=== PATIENT | female | born 1960 | race Caucasian/White ===

== ENCOUNTER 2022-04-24 20:30 | Emergency (ER) | payer OTHER, SELFPAY ==
--- NOTE | ~2022-04-24 | CT_ITS ---
EXAMINATION: HEAD CT WITHOUT CONTRAST CERVICAL SPINE CT WITHOUT CONTRAST CLINICAL INFORMATION: fall od, PAIN. Headache. COMPARISON: None. TECHNIQUE: Contiguous axial imaging of the head was performed without the administration of IV contrast. Axial multidetector volumetric images were also performed through the cervical spine without intravenous contrast. Multiplanar reconstructed images in coronal and sagittal orientations were submitted. This CT examination was performed using dose optimization techniques as appropriate, variously including the following: *Automated exposure control *Adjustment of mA and/or kV according to patient size (this includes techniques or standardized protocols for targeted exams where dose is matched to indication/reason for exam; i.e. extremities or head) *Use of iterative reconstruction technique DOSE: 1481 mGy-cm FINDINGS: HEAD: There is no evidence of acute intracranial hemorrhage or territorial infarction. No abnormal mass-effect or midline shift. No extra-axial fluid collections. Benites to white matter differentiation is well preserved. The ventricles are normal in size and configuration. There is no abnormal attenuation within the brain parenchyma. Mild hyperostosis frontalis interna. The soft tissues and osseous structures are otherwise normal. The sinuses and mastoid air cells are clear. CERVICAL SPINE: Vertebral body heights are normal. No fractures of the vertebral bodies or posterior elements. Reversal of the normal cervical lordosis is likely positional or degenerative. No vertebral body or posterior element subluxation. Degenerative osteophytes and sclerosis are present at the atlantodental articulation, though normal alignment is maintained. Craniocervical junction is normal. Moderate degenerative disc disease is evident in the mid cervical spine at C5-C6 with loss of disc height, endplate osteophytes, and uncovertebral osteophytes. More mild degenerative degenerative disc disease is evident at other levels . Facet arthropathy is most notable on the left at C2-C3 and on the right at C7-T1. Mild to moderate central canal narrowing is evident at the level of C5-C6 due to posterior disc osteophyte complex. More mild central canal narrowing at C4-C5 and C6-C7. Uncovertebral osteophytes produce neural foraminal encroachment at C5-C6 bilaterally. No significant paravertebral soft tissue swelling. Atherosclerotic calcifications are present in the carotid arteries. Imaged portions of the lung apices are clear. CT/CT cervical spine wo IV con IMPRESSION: 1. No acute intracranial pathology. 2. No acute fracture or malalignment in the cervical spine. 3. Multilevel degenerative spondylosis in the cervical spine, most notably at C5-C6.
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
--- NOTE | ~2022-04-24 | XR_ITS ---
EXAMINATION: XR CHEST CLINICAL INFORMATION: Chest pain COMPARISON: None TECHNIQUE: Frontal view of the chest was obtained. FINDINGS: The lungs are clear. No airspace consolidation, pleural effusion, or pneumothorax. The cardiomediastinal silhouette is within normal limits. No acute osseous injury. XR/XR chest 1V IMPRESSION: No acute pulmonary disease.
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
[2022-04-24 20:32] VITALS: BP 122/72; BP 147/83; PULSE 81; PULSE 90; RESP 36; TEMP 36.8; O2SAT 95; O2SAT 96; BMI 42.0
--- NOTE | 2022-04-24 20:43 | ECG_ITS ---
Test Reason : OVERDOSE Blood Pressure : / mmHG Vent. Rate : 077 BPM Atrial Rate : 077 BPM P-R Int : 188 ms QRS Dur : 098 ms QT Int : 404 ms P-R-T Axes : 061 068 039 degrees QTc Int : 457 ms Normal sinus rhythm Normal ECG When compared with ECG of 15-JAN-2019 10:24, QRS axis has changed in precordial leads Referred By: Generic ED Physician Electronically Signed By:ROSY GRANADOS MD
[2022-04-24 20:51] LABS: Glucose, Whole Blood 162 mg/dL (60-115)
--- NOTE | 2022-04-24 21:10 | ED.OVERDOSE ---
HPI - Overdose General Chief Complaint: Overdose <ANUP Martinez - Last Filed: 04/25/22 01:24> Stated Complaint: OD <ANUP Martinez Last Filed: 04/25/22 01:24> Time Seen by Provider: 04/24/22 21:02 <ANUP Martinez Last Filed: 04/25/22 01:24> Source: patient <ANUP Martinez Last Filed: 04/25/22 01:24> Mode of arrival: ambulatory <ANUP Martinez Last Filed: 04/25/22 01:24> Limitations: no limitations <ANUP Martinez Last Filed: 04/25/22 01:24> History of Present Illness HPI Narrative: This is a 61-year-old female brought into the emergency department via EMS for suspected heroin overdose. Patient tells me that she use 1 bag of heroin, she tells me she smoked it. She tells me she forgets what happened after that. Currently reporting severe chest pain worse with inspiration and severe shortness of breath. Patient on 2-3 L via nasal cannula and saturating 96%. According to EMS a bystander to call 911 for an unresponsive female was thought to have a heroin overdose, bystander reported patient was unresponsive with no pulse therefore was instructed to initiate CPR CPR was started, police arrived on scene gave 8 mg of Narcan intranasally, patient did not respond CPR continued, according to police patient later woke up after CPR Narcan, complaining of severe chest pain, shortness of breath. Patient was hypoxic high 80s low 90s. Patient tells me that she feels awful and is having a bad headache. Patient denies nausea, vomiting, abdominal pain, vision changes, dizziness. Denies SI and HI . <ANUP Martinez Last Filed: 04/25/22 01:24> Related Data Home Medications: Previous Rx's Medication Instructions Recorded ibuprofen 600 mg tablet 600 mg PO Q6H PRN fever or pain 04/25/22 #30 tabs <ANUP Martinez Last Filed: 04/25/22 01:24> Allergies/Adverse Reactions: Allergies Allergy/AdvReac Type Severity Reaction Status Date / Time No Known Allergies Allergy Unverified 02/23/20 19:10 [No Known Allergies*] <ANUP Martinez Last Filed: 04/25/22 01:24> Review of Systems Review of Systems: Constitutional : No Weight loss, No Fever, No Chills, No Fatigue, No Malaise ENT/Mouth : No sore throat, No Rhinorrhea Eyes: No Eye Pain, No Swelling, No Redness Cardiovascular : + Chest Pain, + SOB, No Dyspnea on Exertion, No Orthopnea, No Edema, No Palpitations Respiratory : No Cough, No Sputum, No Wheezing Gastrointestinal : No Nausea, No Vomiting, No Diarrhea, No Constipation, No abdominal Pain, No Hematochezia, No Melena Genitourinary : No Dysuria, No Urinary Frequency, No Hematuria, Musculoskeletal : No joint pain, No Myalgias, No Joint Swelling Skin : No Skin Lesions, No rash Neuro : No Weakness, No Numbness, No Dizziness, No Headache Psych : No Anxiety/Panic, No Depression All other systems reviewed and are negative <ANUP Martinez Last Filed: 04/25/22:24> Yes all other systems are reviewed and are negative <ANUP Martinez - Last Filed: 04/25/22 01:24> [facility] Past Medical History Attestation statement: The following information was validated with the patient. <ANUP Martinez - Last Filed: 04/25/22 01:24> Source: old records reviewed and nursing notes reviewed <ANUP Martinez - Last Filed: 04/25/22 01:24> Social History Social History: Social History Alcohol intake: current Alcohol intake frequency: a few times a week Smoked in Last 30 Days: Yes Use of substances other than those prescribed or required for medical reasons: Yes Substance Use Type: Heroin Last Used Substance: Just Prior to Admission Advance Directives: No Advance Directives Information Provided: Yes <ANUP Martinez Last Filed: 04/25/22 01:24> Physical Exam Vital Signs: Vital Signs: Last Vital Signs Temp 97.1 F 04/25/22 01:57 Pulse 65 04/25/22 03:43 Resp 18 04/25/22 03:43 BP 135/79 04/25/22 03:43 Pulse Ox 98 04/25/22 03:43 O2 Del Method 04/25/22 03:43 Oxygen Flow Rate 2 04/24/22 20:32 BMI result Body Mass Index 42.0 vss <ANUP Martinez - Last Filed: 04/25/22 01:24> Vital Signs: Last Vital Signs Temp 97.1 F 04/25/22 01:57 Pulse 65 04/25/22 03:43 Resp 18 04/25/22 03:43 BP 135/79 04/25/22 03:43 Pulse Ox 98 04/25/22 03:43 O2 Del Method 04/25/22 03:43 Oxygen Flow Rate 2 04/24/22 20:32 BMI result Body Mass Index 42.0 <Dawood Le MD - Last Filed: 04/25/22 04:34> Appearance: Alert.? Oriented X3.? No acute distress.? Head: Normocephalic, atraumatic, no step-offs or deformities Eyes: Pupils equal, round and reactive to light.? ENT: Pharynx normal.? Neck: Normal inspection.? Neck supple.? CVS: Rapid rate normal rhythm..? Pulses normal.? Pain with palpation of anterior chest wall particularly above of the sternum Respiratory: No respiratory distress.? Breath sounds diminhished bl.? Abdomen: Soft and nontender.? Skin: Skin warm and dry.? Normal skin color.? Normal skin turgor.? Extremities: No lower extremity edema.? No calf ttp. 5/5 strength to bilateral upper and lower extremities\ Neuro: Oriented X 3.? No motor deficit.? No sensory deficit. CN 2-12 intact <ANUP Martinez - Last Filed: 04/25/22 01:24> Course Reevaluation(s) Reevaluation #1: CBC with slight leukocytosis likely reactive. Chemistry with no electrolyte abnormalities requiring intervention. Troponin 12.2 will repeat at 0200 however ekg w/o evidence of ischemia. Chest xray no acute findings. <ANUP Martinez - Last Filed: 04/25/22 01:24> Time: 23:53 <ANUP Martinez - Last Filed: 04/25/22 01:24> Reevaluation #2: Sign-out will be given to pending scans, trop, reval, sude. <ANUP Martinez - Last Filed: 04/25/22 01:24> Time: 00:53 <ANUP Martinez - Last Filed: 04/25/22 01:24> Medications Administered Discontinued Medications Generic Name Dose Route Start Last Admin Trade Name Freq PRN Reason Stop Dose Admin Iohexol 100 ml 04/25/22 00:47 04/25/22 00:48 Iohexol 350 Mg/Ml 100 Ml Infus..Btl IV 04/25/22 00:48 100 ml ONCE ONE Administration Lidocaine 1 patch 04/25/22 01:22 04/25/22 01:33 Lidocaine 4 % Patch Adh..Patch TRANSDERMA 04/25/22 01:23 1 patch ONCE ONE Administration Protocol Morphine Sulfate 4 mg 04/25/22 01:22 04/25/22 01:33 Morphine Sulfate 4 Mg/Ml Cartridge IVPUSH 04/25/22 01:23 4 mg ONCE ONE Administration Protocol <ANUP Martinez - Last Filed: 04/25/22 01:24> Medications Administered Discontinued Medications Generic Name Dose Route Start Last Admin Trade Name Freq PRN Reason Stop Dose Admin Iohexol 100 ml 04/25/22 00:47 04/25/22 00:48 Iohexol 350 Mg/Ml 100 Ml Infus..Btl IV 04/25/22 00:48 100 ml ONCE ONE Administration Lidocaine 1 patch 04/25/22 01:22 04/25/22 01:33 Lidocaine 4 % Patch Adh..Patch TRANSDERMA 04/25/22 01:23 1 patch ONCE ONE Administration Protocol Morphine Sulfate 4 mg 04/25/22 01:22 04/25/22 01:33 Morphine Sulfate 4 Mg/Ml Cartridge IVPUSH 04/25/22 01:23 4 mg ONCE ONE Administration Protocol <Dawood Le MD - Last Filed: 04/25/22 04:34> MDM - Overdose MDM Narrative Medical decision making narrative: 2100 61-year-old female presents status post heroin overdose was given 8 mg of intranasal Narcan in the field, and also receive CPR. Patient arrives alert and oriented x4 and reports using 1 bag of heroin, tells me she smoked it. Complaining of severe chest pain, shortness of breath, headache. Physical examination patient is noted to be hypoxic 90% on room air, placed on nasal cannula and saturating 96% on 2 L. Regular rate fast rhythm likely sinus tachycardia. Breath sounds diminished bilaterally. Abdomen soft nontender nondistended. Neuro nonfocal. Cerebellar intact. To note, patient does have significant pain to palpation overlying the anterior chest wall right above the sternum. Will obtain chest x-ray to rule out pneumothorax, rib fracture status post CPR any traumatic injuries, no signs of flail chest. Will also obtain CT of the head, neck, chest, abdomen pelvis as patient is unsure if she fell. Patient complaining of pain throughout body. Will obtain imaging. Basic labs, BREWSTER, ethanol level. <ANUP Martinez - Last Filed: 04/25/22 01:24> 2100 61-year-old female presents status post heroin overdose was given 8 mg of intranasal Narcan in the field, and also receive CPR. Patient arrives alert and oriented x4 and reports using 1 bag of heroin, tells me she smoked it. Complaining of severe chest pain, shortness of breath, headache. Physical examination patient is noted to be hypoxic 90% on room air, placed on nasal cannula and saturating 96% on 2 L. Regular rate fast rhythm likely sinus tachycardia. Breath sounds diminished bilaterally. Abdomen soft nontender nondistended. Neuro nonfocal. Cerebellar intact. To note, patient does have significant pain to palpation overlying the anterior chest wall right above the sternum. Will obtain chest x-ray to rule out pneumothorax, rib fracture status post CPR any traumatic injuries, no signs of flail chest. Will also obtain CT of the head, neck, chest, abdomen pelvis as patient is unsure if she fell. Patient complaining of pain throughout body. Will obtain imaging. Basic labs, BREWSTER, ethanol level. Patient seen with riding coach will discharge patient home plan to see her as outpatient patient agreed for this <Dawood Le MD - Last Filed: 04/25/22 04:34> Medical Records Attestation: I reviewed the patient's medical records. <ANUP Martinez - Last Filed: 04/25/22 01:24> Lab Data Attestation: I reviewed the patient's lab results. <ANUP Martinez - Last Filed: 04/25/22 01:24> Result diagrams: : 04/24/22 23:04 04/24/22 23:04 <ANUP Martinez - Last Filed: 04/25/22 01:24> Labs: Lab Results 04/24/22 04/24/22 04/24/22 Range/Units 20:40 23:04 23:04 WBC 14.0 H (4.8-10.8) X10*3/uL RBC 4.60 (4.20-5.50) X10*6/uL Hgb 13.6 (12.0-16.0) g/dl Hct 40.2 (37.0-47.0) % MCV 87.4 (80.0-98.0) fL MCH 29.6 (27.0-33.0) pg MCHC 33.8 (31.0-35.0) g/dl RDW 13.2 (11.0-16.0) % Plt Count 261 (160-400) X10*3/uL MPV 8.6 L (9.4-12.3) fL Immature Gran % (Auto) 0.4 (0.0-0.4) % Neut % (Auto) 72.8 (45-73) % Lymph % (Auto) 11.8 L (20-40) % [facility] % (Auto) 6.0 (2-11) % Eos % (Auto) 8.6 H (0-4) % Baso % (Auto) 0.4 (0-2) % Lymph # (Auto) 1.7 (1.2-4.9) X10*3/uL [facility] # (Auto) 0.8 (0.1-1.2) X10*3/uL Eos # (Auto) 1.2 H (0.0-0.4) X10*3/uL Baso # (Auto) 0.1 (0.0-0.2) X10*3/uL Abs Immat Gran (auto) 0.06 H (0.00-0.03) X10*3/uL Absolute Neuts (auto) 10.2 H (2.0-8.3) x10*3/uL Absolute Nucleated RBC 0.000 (0.0-0.012) X10*3/uL Nucleated RBC % (auto) 0.0 (0.0-0.2) /100WBC Sodium 143 (135-145) mmol/L Potassium 3.9 (3.3-5.1) mmol/L Chloride 103 (96-108) mmol/L Carbon Dioxide 29 (22-29) mmol/L Anion Gap 15 (12-20) BUN 13 (9-16) mg/dL Creatinine 1.13 (0.5-1.4) mg/dL Estim Creat Clear Calc 65.4 Estimated GFR 49 POC Glucose 162 H (60-115) mg/dL Random Glucose 90 (60-115) mg/dL Calcium 9.7 (8.4-10.2) mg/dL Magnesium 1.6 (1.6-2.6) mg/dL Total Bilirubin 0.4 (0.0-1.0) mg/dL AST 47 H (5-31) U/L ALT 47 H (0-31) U/L Alkaline Phosphatase 54 (39-117) U/L Troponin I High Sens (<3.5-17.0) ng/L Total Protein 7.8 (6.5-8.0) g/dL Albumin 3.9 (3.5-5.0) g/dL Ethyl Alcohol mg/dL COVID-19 ([facility]) (Negative) COVID-19 Clin Com 04/24/22 04/24/22 04/24/22 Range/Units 23:04 23:04 23:04 WBC (4.8-10.8) X10*3/uL RBC (4.20-5.50) X10*6/uL Hgb (12.0-16.0) g/dl Hct (37.0-47.0) % MCV (80.0-98.0) fL MCH (27.0-33.0) pg MCHC (31.0-35.0) g/dl RDW (11.0-16.0) % Plt Count (160-400) X10*3/uL MPV (9.4-12.3) fL Immature Gran % (Auto) (0.0-0.4) % Neut % (Auto) (45-73) % Lymph % (Auto) (20-40) % [facility] % (Auto) (2-11) % Eos % (Auto) (0-4) % Baso % (Auto) (0-2) % Lymph # (Auto) (1.2-4.9) X10*3/uL [facility] # (Auto) (0.1-1.2) X10*3/uL Eos # (Auto) (0.0-0.4) X10*3/uL Baso # (Auto) (0.0-0.2) X10*3/uL Abs Immat Gran (auto) (0.00-0.03) X10*3/uL Absolute Neuts (auto) (2.0-8.3) x10*3/uL Absolute Nucleated RBC (0.0-0.012) X10*3/uL Nucleated RBC % (auto) (0.0-0.2) /100WBC Sodium (135-145) mmol/L Potassium (3.3-5.1) mmol/L Chloride (96-108) mmol/L Carbon Dioxide (22-29) mmol/L Anion Gap (12-20) BUN (9-16) mg/dL Creatinine (0.5-1.4) mg/dL Estim Creat Clear Calc Estimated GFR POC Glucose (60-115) mg/dL Random Glucose (60-115) mg/dL Calcium (8.4-10.2) mg/dL Magnesium (1.6-2.6) mg/dL Total Bilirubin (0.0-1.0) mg/dL AST (5-31) U/L ALT (0-31) U/L Alkaline Phosphatase (39-117) U/L Troponin I High Sens 12.2 (<3.5-17.0) ng/L Total Protein (6.5-8.0) g/dL Albumin (3.5-5.0) g/dL Ethyl Alcohol < 10 mg/dL COVID-19 ([facility]) Negative (Negative) COVID-19 Clin Com See Note 04/25/22 Range/Units 01:01 WBC (4.8-10.8) X10*3/uL RBC (4.20-5.50) X10*6/uL Hgb (12.0-16.0) g/dl Hct (37.0-47.0) % MCV (80.0-98.0) fL MCH (27.0-33.0) pg MCHC (31.0-35.0) g/dl RDW (11.0-16.0) % Plt Count (160-400) X10*3/uL MPV (9.4-12.3) fL Immature Gran % (Auto) (0.0-0.4) % Neut % (Auto) (45-73) % Lymph % (Auto) (20-40) % [facility] % (Auto) (2-11) % Eos % (Auto) (0-4) % Baso % (Auto) (0-2) % Lymph # (Auto) (1.2-4.9) X10*3/uL [facility] # (Auto) (0.1-1.2) X10*3/uL Eos # (Auto) (0.0-0.4) X10*3/uL Baso # (Auto) (0.0-0.2) X10*3/uL Abs Immat Gran (auto) (0.00-0.03) X10*3/uL Absolute Neuts (auto) (2.0-8.3) x10*3/uL Absolute Nucleated RBC (0.0-0.012) X10*3/uL Nucleated RBC % (auto) (0.0-0.2) /100WBC Sodium (135-145) mmol/L Potassium (3.3-5.1) mmol/L Chloride (96-108) mmol/L Carbon Dioxide (22-29) mmol/L Anion Gap (12-20) BUN (9-16) mg/dL Creatinine (0.5-1.4) mg/dL Estim Creat Clear Calc Estimated GFR POC Glucose (60-115) mg/dL Random Glucose (60-115) mg/dL Calcium (8.4-10.2) mg/dL Magnesium (1.6-2.6) mg/dL Total Bilirubin (0.0-1.0) mg/dL AST (5-31) U/L ALT (0-31) U/L Alkaline Phosphatase (39-117) U/L Troponin I High Sens 11.2 (<3.5-17.0) ng/L Total Protein (6.5-8.0) g/dL Albumin (3.5-5.0) g/dL Ethyl Alcohol mg/dL COVID-19 ([facility]) (Negative) COVID-19 Clin Com <ANUP Martinez - Last Filed: 04/25/22 01:24> Lab Results 04/24/22 04/24/22 04/24/22 Range/Units 20:40 23:04 23:04 WBC 14.0 H (4.8-10.8) X10*3/uL RBC 4.60 (4.20-5.50) X10*6/uL Hgb 13.6 (12.0-16.0) g/dl Hct 40.2 (37.0-47.0) % MCV 87.4 (80.0-98.0) fL MCH 29.6 (27.0-33.0) pg MCHC 33.8 (31.0-35.0) g/dl RDW 13.2 (11.0-16.0) % Plt Count 261 (160-400) X10*3/uL MPV 8.6 L (9.4-12.3) fL Immature Gran % (Auto) 0.4 (0.0-0.4) % Neut % (Auto) 72.8 (45-73) % Lymph % (Auto) 11.8 L (20-40) % [facility] % (Auto) 6.0 (2-11) % Eos % (Auto) 8.6 H (0-4) % Baso % (Auto) 0.4 (0-2) % Lymph # (Auto) 1.7 (1.2-4.9) X10*3/uL [facility] # (Auto) 0.8 (0.1-1.2) X10*3/uL Eos # (Auto) 1.2 H (0.0-0.4) X10*3/uL Baso # (Auto) 0.1 (0.0-0.2) X10*3/uL Abs Immat Gran (auto) 0.06 H (0.00-0.03) X10*3/uL Absolute Neuts (auto) 10.2 H (2.0-8.3) x10*3/uL Absolute Nucleated RBC 0.000 (0.0-0.012) X10*3/uL Nucleated RBC % (auto) 0.0 (0.0-0.2) /100WBC Sodium 143 (135-145) mmol/L Potassium 3.9 (3.3-5.1) mmol/L Chloride 103 (96-108) mmol/L Carbon Dioxide 29 (22-29) mmol/L Anion Gap 15 (12-20) BUN 13 (9-16) mg/dL Creatinine 1.13 (0.5-1.4) mg/dL Estim Creat Clear Calc 65.4 Estimated GFR 49 POC Glucose 162 H (60-115) mg/dL Random Glucose 90 (60-115) mg/dL Calcium 9.7 (8.4-10.2) mg/dL Magnesium 1.6 (1.6-2.6) mg/dL Total Bilirubin 0.4 (0.0-1.0) mg/dL AST 47 H (5-31) U/L ALT 47 H (0-31) U/L Alkaline Phosphatase 54 (39-117) U/L Troponin I High Sens (<3.5-17.0) ng/L Total Protein 7.8 (6.5-8.0) g/dL Albumin 3.9 (3.5-5.0) g/dL Ethyl Alcohol mg/dL COVID-19 ([facility]) (Negative) COVID-19 Clin Com 04/24/22 04/24/22 04/24/22 Range/Units 23:04 23:04 23:04 WBC (4.8-10.8) X10*3/uL RBC (4.20-5.50) X10*6/uL Hgb (12.0-16.0) g/dl Hct (37.0-47.0) % MCV (80.0-98.0) fL MCH (27.0-33.0) pg MCHC (31.0-35.0) g/dl RDW (11.0-16.0) % Plt Count (160-400) X10*3/uL MPV (9.4-12.3) fL Immature Gran % (Auto) (0.0-0.4) % Neut % (Auto) (45-73) % Lymph % (Auto) (20-40) % [facility] % (Auto) (2-11) % Eos % (Auto) (0-4) % Baso % (Auto) (0-2) % Lymph # (Auto) (1.2-4.9) X10*3/uL [facility] # (Auto) (0.1-1.2) X10*3/uL Eos # (Auto) (0.0-0.4) X10*3/uL Baso # (Auto) (0.0-0.2) X10*3/uL Abs Immat Gran (auto) (0.00-0.03) X10*3/uL Absolute Neuts (auto) (2.0-8.3) x10*3/uL Absolute Nucleated RBC (0.0-0.012) X10*3/uL Nucleated RBC % (auto) (0.0-0.2) /100WBC Sodium (135-145) mmol/L Potassium (3.3-5.1) mmol/L Chloride (96-108) mmol/L Carbon Dioxide (22-29) mmol/L Anion Gap (12-20) BUN (9-16) mg/dL Creatinine (0.5-1.4) mg/dL Estim Creat Clear Calc Estimated GFR POC Glucose (60-115) mg/dL Random Glucose (60-115) mg/dL Calcium (8.4-10.2) mg/dL Magnesium (1.6-2.6) mg/dL Total Bilirubin (0.0-1.0) mg/dL AST (5-31) U/L ALT (0-31) U/L Alkaline Phosphatase (39-117) U/L Troponin I High Sens 12.2 (<3.5-17.0) ng/L Total Protein (6.5-8.0) g/dL Albumin (3.5-5.0) g/dL Ethyl Alcohol < 10 mg/dL COVID-19 ([facility]) Negative (Negative) COVID-19 Clin Com See Note 04/25/22 Range/Units 01:01 WBC (4.8-10.8) X10*3/uL RBC (4.20-5.50) X10*6/uL Hgb (12.0-16.0) g/dl Hct (37.0-47.0) % MCV (80.0-98.0) fL MCH (27.0-33.0) pg MCHC (31.0-35.0) g/dl RDW (11.0-16.0) % Plt Count (160-400) X10*3/uL MPV (9.4-12.3) fL Immature Gran % (Auto) (0.0-0.4) % Neut % (Auto) (45-73) % Lymph % (Auto) (20-40) % [facility] % (Auto) (2-11) % Eos % (Auto) (0-4) % Baso % (Auto) (0-2) % Lymph # (Auto) (1.2-4.9) X10*3/uL [facility] # (Auto) (0.1-1.2) X10*3/uL Eos # (Auto) (0.0-0.4) X10*3/uL Baso # (Auto) (0.0-0.2) X10*3/uL Abs Immat Gran (auto) (0.00-0.03) X10*3/uL Absolute Neuts (auto) (2.0-8.3) x10*3/uL Absolute Nucleated RBC (0.0-0.012) X10*3/uL Nucleated RBC % (auto) (0.0-0.2) /100WBC Sodium (135-145) mmol/L Potassium (3.3-5.1) mmol/L Chloride (96-108) mmol/L Carbon Dioxide (22-29) mmol/L Anion Gap (12-20) BUN (9-16) mg/dL Creatinine (0.5-1.4) mg/dL Estim Creat Clear Calc Estimated GFR POC Glucose (60-115) mg/dL Random Glucose (60-115) mg/dL Calcium (8.4-10.2) mg/dL Magnesium (1.6-2.6) mg/dL Total Bilirubin (0.0-1.0) mg/dL AST (5-31) U/L ALT (0-31) U/L Alkaline Phosphatase (39-117) U/L Troponin I High Sens 11.2 (<3.5-17.0) ng/L Total Protein (6.5-8.0) g/dL Albumin (3.5-5.0) g/dL Ethyl Alcohol mg/dL COVID-19 ([facility]) (Negative) COVID-19 Clin Com <Dawood Le MD - Last Filed: 04/25/22 04:34> Critical Care Time Critical Care Time Critical Care Time: No <ANUP Martinez - Last Filed: 04/25/22 01:24> Discharge Plan Discharge Clinical Impression: Drug overdose, Sternal fracture, Left rib fracture <ANUP Martinez - Last Filed: 04/25/22 01:24> Patient Disposition: Home, Self-Care <ANUP Martinez - Last Filed: 04/25/22 01:24> Instructions: Rib Fracture (ED), Adult Overdose (ED) <ANUP Martinez - Last Filed: 04/25/22 01:24> Additional Instructions: Follow up detox as discussed with riding coach Pain medication as prescribed Report to ER if increased shortness of breath or any concern <ANUP Martinez - Last Filed: 04/25/22 01:24> Prescriptions: New ibuprofen 600 mg tablet 600 mg PO Q6H PRN (Reason: fever or pain) Qty: 30 0RF <ANUP Martinez Last Filed: 04/25/22 01:24>
--- OUTSIDE RECORDS SUMMARY | 2022-04-24 21:10 | XMS_ITS | Continuity of Care Document ---
:1960 Author Organization [facility] Address [address] [place] [address]- Care Team Providers Name Role Phone Samara Maya NP Primary Care Physician Encounter [facility] [place] Date(s): 11/13/21 - 11/20/21 [facility] [address] [place] [phone]- Attending Physician: Not on Staff, Attending MD Allergies, Adverse Reactions, Alerts No Known Allergies Immunizations Given and Recorded Vaccine Date Status Refusal Reason SARS-CoV-2 (COVID-19) mRNA-1273 vaccine 05/01/21 Recorded SARS-CoV-2 (COVID-19) mRNA-1273 vaccine 08/07/20 Recorded SARS-CoV-2 (COVID-19) mRNA-1273 vaccine 07/07/20 Recorded Influenza Virus Vaccine (oldterm) 03/15/19 Recorded influenza virus vaccine, inactivated 02/03/19 Recorded influenza virus vaccine, inactivated 06/23/17 Given influenza virus vaccine, inactivated 03/26/17 Recorded influenza virus vaccine, inactivated 03/26/15 Recorded pneumococcal 23-valent vaccine 08/25/18 Recorded pneumococcal 23-valent vaccine 06/23/17 Given tetanus-diphtheria toxoids (Td) 05/13/18 Recorded tetanus/diphtheria/pertussis, acel(Tdap) 01/05/18 Given Not Given Vaccine Date Status Refusal Reason influenza virus vaccine, inactivated 08/22/21 Not Given Patient Refuses Medications ARIPiprazole 2 mg oral tablet 2 mg, 1, tablet, By Mouth, Daily, # 30 tablet, Refills 0, Maintenance, 09/01/21 11:29:00 EDT, Partial fill upon patient request if the prescription is for a schedule II opioid drug. Start Date: 09/01/21 Status: Ordereddexamethasone/neomycin/polymyxin B ophthalmic 1 mg-3.5 mg-03598 u/gm ointment 1 application, Eyes, Both, 3 times a day, # 4 Gm, 0 Refills, Maintenance, 08/21/21 22:30:00 EDT, Ophth Ointment, Partial fill upon patient request if the prescription is for a schedule II opioid drug. Start Date: 08/21/21 Status: Orderedgabapentin 300 mg oral capsule See Instructions, Take one capsul in the morning and two capsules at bedtime, # 90 capsule, Refills 0, Tot. Refills 0, Maintenance, 12/19/20 9:27:00 EDT, Instructions Replace Required Details, Route toPharmacy Electronically, [facility]... Start Date: 12/19/20 Status: OrderedhydrOXYzine pamoate 25 mg oral capsule 1 capsule = 25 mg, By Mouth, Daily in AM Start Date: 12/15/20 Status: OrderedhydrOXYzine pamoate 25 mg oral capsule 2 capsule = 50 mg, By Mouth, Daily at bedtime, 0 Refills, Maintenance, 08/21/21 22:31:00 EDT, Partial fill upon patient request if the prescription is for a schedule II opioid drug. Start Date: 08/21/21 Status: Orderedibuprofen 800 mg oral tablet 800 mg, 1, tablet, By Mouth, 3 times a day, PRN, not to exceed 3200 mg/day with food or milk, # 90 tablet, Refills 1, Tot. Refills 1, Maintenance, Pain , Moderate, 11/13/21 15:32:00 EDT, Route to Pharmacy Electronically, [facility] #[id number],... Start Date: 11/13/21 Status: OrderedSpiriva Respimat 1.25 mcg/inh inhalation aerosol 2 puffs, Inhalation, Daily, Duplicate from 04/22/21 remaining refills sent, # 4 Gm, 5 Refills, 10/28/21 15:13:00 EDT, [facility] #[id number], 163, cm, 09/01/21 11:23:00 EDT, Height, 108.5, kg, 09/01/21 11:23:00 EDT, Dry Weight Start Date: 10/28/21 Status: OrderedWixela Inhub 250 mcg-50 mcg inhalation powder 1 puffs, Inhalation, 2 times a day, # 60 Unknown, 5 Refills, 10/28/21 15:13:00 EDT, [facility] #[id number], 30, 1 puffs Inhalation 2 times a day, 163, cm, 09/01/21 11:23:00 EDT, Height, 108.5, kg,09/01/21 11:23:00 EDT, Dry Weight Start Date: 10/28/21 Status: Ordered Problem List Condition Effective Dates Status Health Status Informant Bipolar disorder(Confirmed) Active Chronic depression(Confirmed) Active Other disorders of iron Active metabolism(Confirmed) Dyslipidemia(Confirmed) Active H/O cocaine abuse(Confirmed) Active History of heroin abuse(Confirmed) Active Elevated LFTs(Confirmed) Active Anxiety and depression(Confirmed) Active COPD, moderate(Confirmed) Active Morbid obesity with body mass index of Active 40.0-49.9(Confirmed) Pulmonary nodules(Confirmed) Active Lung nodule(Confirmed) Active MEENA (obstructive sleep Active apnea)(Confirmed) Osteoarthritis, knee(Confirmed) Active Polysubstance abuse(Confirmed) Active PTSD (post-traumatic stress Active disorder)(Confirmed) Restless leg syndrome(Confirmed) Active Severe obesity(Confirmed) Active Sleepwalking disorder(Confirmed) Active Vital Signs Most recent to oldest [Reference Range]: 1 Height 163 cm (11/13/21 3:23 PM) Weight 111.4 kg (11/13/21 3:23 PM) Oxygen Saturation [94-100 %] 96 % (11/13/21 3:23 PM) Pulse Rate [55-90 bpm] 74 bpm (11/13/21 3:23 PM) Body Mass Index [18.5-24.99] 41.93 *>HHI* (11/13/21 3:23 PM) Blood Pressure [90-138/55-84 mm Hg] 102/68 mm Hg (11/13/21 3:23 PM) Temperature [96.8-100.4 DegF] 97.9 DegF (11/13/21 3:23 PM) Mode of Delivery (Oxygen) Room air (11/13/21 3:23 PM) Blood pressure sites Arm, left (11/13/21 3:23 PM) Temperature Route Oral (11/13/21 3:23 PM) Weight Obtained Via Standing scale (11/13/21 3:23 PM) Social History Social History Type Response Smoking Status Never smoker entered on: 10/28/17 Sex
--- OUTSIDE RECORDS SUMMARY | 2022-04-24 21:10 | XMS_ITS | Continuity of Care Document ---
:1960 Author Organization [facility] Address [address] [place] [phone]- Care Team Providers Name Role Phone Francesco SAMANIEGO, Samara Eid Primary Care Physician Encounter [facility] Date(s): 07/10/21 - 08/09/21 [facility] [address] [place] [phone]- Allergies, Adverse Reactions, Alerts No Known Allergies [...] (Td) 05/13/18 Recorded tetanus/diphtheria/pertussis, acel(Tdap) 01/05/18 Given Medications diclofenac 1% topical gel 1 application, Topically, 4 times a day, PRN Pain , Moderate, not to exceed 16 grams/day/single joint of lower extremities, # 100 Gm, 0 Refills, Maintenance, 01/16/21 16:31:00 EDT, Gel, [facility] [place], [place] - [phone], Partial fill upon... Start Date: 01/16/21 Stop Date: 01/30/21 Status: Orderedduloxetine 60 mg oral enteric coated capsule 1 capsule = 60 mg, By Mouth, Daily at bedtime, # 30 capsule, 0 Refills, Maintenance, 12/19/20 9:26:00 EDT, Capsule, [place], [place] - [phone], Partial fill upon patient request if the prescription is for a schedule II opioid drug.... Start Date: 12/19/20 Status: Orderedgabapentin 300 mg oral capsule See Instructions, Take one capsul in the morning and two capsules at bedtime, # 90 capsule, Refills 0, Tot. Refills 0, Maintenance, 12/19/20 9:27:00 EDT, Instructions Replace Required Details, Route toPharmacy Electronically, [facility]... Start Date: 12/19/20 Status: OrderedhydrOXYzine pamoate 25 mg oral capsule Take 1 capsule by mouth three times a day as needed for sleep and anxiety Start Date: 12/15/20 Status: Orderednaltrexone 50 mg oral tablet Take 1 tablet by mouth once a day Start Date: 12/15/20 Status: OrderedrisperiDONE 1 mg oral tablet 1 mg, 1, tablet, By Mouth, Daily at bedtime, # 30 tablet, Refills 0, Tot. Refills 0, Maintenance, 12/19/20 9:27:00 EDT, Route to Pharmacy Electronically, [place], [place] - [phone],Partial fill upon patient request if the prescrip... Start Date: 12/19/20 Status: OrderedSpiriva Respimat 1.25 mcg/inh inhalation aerosol 2 puffs, Inhalation, Daily, Duplicate from 04/22/21 remaining refills sent, # 4 Gm, 2 Refills, 07/10/21 10:42:00 EST, [facility]-[id number], 163, cm, 01/31/21 8:38:00 EDT, Height, 105.6, kg, 12/15/20 3:15:00 EDT, Dry Weight Start Date: 07/10/21 Status: OrderedTrileptal 300 mg oral tablet 600 mg, 2, tablet, By Mouth, 2 times a day, # 120 tablet, Refills 0, Tot. Refills 0, Maintenance, 12/19/20 9:27:00 EDT, Route to Pharmacy Electronically, [facility] [place], [place] - [phone],Partial fill upon patient request if the prescrip... Start Date: 12/19/20 Status: OrderedWixela Inhub 250 mcg-50 mcg inhalation powder 1 puffs, Inhalation, 2 times a day, # 60 Unknown, 5 Refills, 07/10/21 10:42:00 EST, [facility]-[id number], 30, 1 puffs Inhalation 2 times a day, 163, cm, 01/31/21 8:38:00 EDT, Height, 105.6, kg, 12/15/20 3:15:00 EDT, Dry Weight Start Date: 07/10/21 Status: Ordered Problem List Condition Effective Dates Status Health Status Informant Bipolar disorder(Confirmed) Active Chronic depression(Confirmed) Active Other disorders of iron Active metabolism(Confirmed) Dyslipidemia(Confirmed) Active H/O cocaine abuse(Confirmed) Active History of heroin abuse(Confirmed) Active Elevated LFTs(Confirmed) Active Anxiety and depression(Confirmed) Active COPD, moderate(Confirmed) Active Morbid obesity with body mass index of Active 40.0-49.9(Confirmed) Lung nodule(Confirmed) Active MEENA (obstructive sleep Active apnea)(Confirmed) Osteoarthritis, knee(Confirmed) Active Polysubstance abuse(Confirmed) Active PTSD (post-traumatic stress Active disorder)(Confirmed) Restless leg syndrome(Confirmed) Active Severe obesity(Confirmed) Active Sleepwalking disorder(Confirmed) Active Social History Social History Type Response Smoking Status Never smoker entered on: 10/28/17 Sex
--- OUTSIDE RECORDS SUMMARY | 2022-04-24 21:10 | XMS_ITS | Continuity of Care Document ---
:1960 Author Organization [facility] Address [address] [place] [phone]- Care Team Providers Name Role Phone Francesco SAMANIEGO, Samara Eid Primary Care Physician [place] [facility] [place] 09/01/21 - 09/01/[address] [address]- Discharge Disposition: A-D/C Home Attending Physician: Elina Garcia MD Admitting Physician: Elina Garcia MD Referring Physician: Not on Staff, Referring MD Allergies, Adverse Reactions, Alerts No Known [...] 09/01/21 Status: Ordereddexamethasone/neomycin/polymyxin B ophthalmic 1 mg-3.5 mg-80424 u/gm ointment 1 application, Eyes, Both, 3 [...] Instructions Replace Required Details, Route toPharmacy Electronically, [facility] [place]... Start Date: 12/19/20 Status: OrderedhydrOXYzine pamoate 25 [...] II opioid drug. Start Date: 08/21/21 Status: OrderedSpiriva Respimat 1.25 mcg/inh inhalation aerosol 2 puffs, Inhalation, Daily, Duplicate from 04/22/21 remaining refills sent, # 4 Gm, 2 Refills, 07/10/21 10:42:00 [facility], [facility]-, 163, cm, 01/31/21 8:38:00 EDT, Height, 105.6, kg, 12/15/20 3:15:00 EDT, Dry Weight Start Date: 07/10/21 Status: OrderedWixela Inhub 250 mcg-50 mcg inhalation powder 1 puffs, Inhalation, 2 times a day, # 60 Unknown, 5 Refills, [facility] 1 puffs Inhalation 2 times a [...] Most recent to oldest [Reference Range]: 1 2 Height 163 cm 163 cm (09/01/21 11:23 AM) (09/01/21 11: AM) Weight 108.5 kg 108.5 kg (09/01/21 11:23 AM) (09/01/21 11: AM) Oxygen Saturation [94-100 %] 95 % (09/01/21: AM) Pulse Rate [55-90 bpm] 85 bpm (09/01/21:23 AM) Body Mass Index [18.5-24.99] 40.84 *>HHI* (09/01/21 11: AM) Blood Pressure [90-138/55-84 mm Hg] 124/83 mm Hg (09/01/21: AM) Respiratory Rate [16-30 br/min] 20 br/min (09/01/21 11:23 AM) Temperature [96.8-100.4 DegF] 97.8 DegF (09/01/21: AM) Blood pressure sites Arm, right (09/01/21 AM) Temperature Route Temporal (09/01/21 11: AM) Dry Weight 108.5 kg 108.5 kg (09/01/21 11:23 AM) (09/01/21 11:21 AM) Weight Obtained Via Patient/family stated (09/01/21 11:21 AM) Dry Weight Obtained Via Patient/family stated (09/01/21 11:21 AM) Social History Social History Type Response Smoking Status Never smoker entered on: 10/28/17 Sex
--- OUTSIDE RECORDS SUMMARY | 2022-04-24 21:10 | XMS_ITS | Continuity of Care Document ---
:1960 Author Organization [facility] Address [address] [place] [address]- Care Team Providers Name Role Phone Francesco SAMANIEGO, Samara Eid Primary Care Physician Encounter [facility] Date(s): 02/23/20 - 03/24/20 [facility] [address] [place] [phone] [place] Allergies, Adverse Reactions, Alerts Substance Reaction Severity Status NKA Active Immunizations Given and Recorded Vaccine Date Status Refusal Reason Influenza Virus Vaccine (oldterm) 03/15/19 Recorded tetanus/diphtheria/pertussis, acel(Tdap) 01/05/18 Given influenza virus vaccine, inactivated 06/23/17 Given pneumococcal 23-valent vaccine 06/23/17 Given Medications Advair Diskus 250 mcg-50 mcg inhalation powder 1, puffs, Inhalation, 2 times a day, # 1 each, Refills 3, Tot. Refills 3, Maintenance, 06/15/20 16:21:00 EST, Powder, Route to Pharmacy Electronically, NCPDP_[id number], [facility], 162, cm, 02/23/20 14:38:00 EDT, Height, Dry Weight Start Date: 06/15/20 Stop Date: 10/13/20 Status: OrderedAutoCPAP 8-20 cm H2O with heated humidification machine AutoCPAP 8-20 cm H2O with heated humidification machine, See Instructions, # 1 each, Refills 0, Tot.Refills 0, Maintenance, Obstructive sleep apnea, mild (G47.33), 11/22/18 10:29:36 EDT, Compound Start Date: 11/22/18 Status: OrderedAutoCPAP Supplies AutoCPAP Supplies, See Instructions, # 1 each, Refills 12, Tot. Refills 12, Maintenance, Obstructivesleep apnea, mild (G47.33), 11/22/18 10:29:33 EDT, Compound Start Date: 11/22/18 Status: Orderedduloxetine 30 mg oral enteric coated capsule TAKE 1 CAPSULE BY MOUTH EVERYDAY AT BEDTIME. Prescribed by psychiatrist MD Carrillo Start Date: 04/28/19 Status: Orderedgabapentin 300 mg oral capsule 1, capsule, By Mouth, 3 times a day, # 90 capsule, Refills 0, Tot. Refills 0, Maintenance, 07/04/19 14:11:00 EST, Route to Pharmacy Electronically, [id number], 162, cm, 04/28/19 10:54:00 EST, Height Start Date: 07/04/19 Status: OrderedhydrOXYzine pamoate 25 mg oral capsule 1 capsule = 25 mg, By Mouth, 4 times a day, PRN for anxiety, # 40 capsule, 0 Refills, Maintenance, 10/28/17 11:36:46 EDT, Capsule Start Date: 10/28/17 Status: OrderedIncruse Ellipta 62.5 mcg/inh inhalation powder See Instructions, # 30 Gm, Refills 5 Tot. Refills 5, INHALE 1 PUFF BY MOUTH EVERY 24 HOURS. DOSES SHOULD BE TAKEN AT LEAST 24 HOURS APART, [facility] #[id number] Start Date: 01/27/19 Status: Orderedmeloxicam 15 mg oral tablet See Instructions, TAKE 1 TABLET BY MOUTH DAILY. Dispense in bubble form, # 30 tablet, 5 Refills, Soft Stop, 02/28/20 11:54:00 EDT, [place], [place] - [phone], Dispense in bubble form, 162, cm, 02/23/20 14:38:00 EDT, Height, Dry Weight Start Date: 02/28/20 Status: OrderedOXcarbazepine 150 mg oral tablet TAKE 1 TABLET BY MOUTH EVERY MORNING DIRECTED IN ADDITION TO 300MG TABLET. Start Date: 04/28/19 Status: OrderedOXcarbazepine 300 mg oral tablet TAKE 1 TABLET BY MOUTH EVERY MORNING AND TAKE 3 TABLETS AT BEDTIME Start Date: 04/28/19 Status: Orderedtiotropium 1.25 mcg/inh inhalation aerosol 2 puffs, Inhalation, Daily, # 4 Gm, 6 Refills, Maintenance, 03/19/20 12:37:00 EDT, Aerosol, [facility] [place], [place] - [id number], 162, cm, 03/01/20 8:47:00 EDT, Height Start Date: 03/19/20 Status: OrderedTrileptal 300 mg oral tablet 300 mg, 1, tablet, By Mouth, 2 times a day, # 90 tablet, Refills 0, Tot. Refills 0, Maintenance, 06/24/17 12:32:51, Route to Pharmacy Electronically, [id number], [facility] [address] [facility] Start Date: 06/24/17 Stop Date: 08/08/17 Status: OrderedVentolin HFA 108 mcg/inh inhalation aerosol with adapter 2 puffs = 180 mcg, Inhalation, 4 times a day, PRN Wheezing/Shortness of Breath, # 18 Gm, 3 Refills, Maintenance, 06/24/17 12:31:47, Inhaler Start Date: 06/24/17 Status: Ordered Problem List Condition Effective Dates Status Health Status Informant Bipolar disorder(Confirmed) Active Chronic depression(Confirmed) Active Other disorders of iron Active metabolism(Confirmed) H/O cocaine abuse(Confirmed) Active History of heroin abuse(Confirmed) Active Anxiety and depression(Confirmed) Active COPD, moderate(Confirmed) Active Morbid obesity with body mass index of Active 40.0-49.9(Confirmed) MEENA (obstructive sleep Active apnea)(Confirmed) Osteoarthritis, knee(Confirmed) Active Polysubstance abuse(Confirmed) Active PTSD (post-traumatic stress Active disorder)(Confirmed) Restless leg syndrome(Confirmed) Active Sleepwalking disorder(Confirmed) Active Social History Social History Type Response Smoking Status Never smoker entered on: 10/28/17 Sex Female
--- OUTSIDE RECORDS SUMMARY | 2022-04-24 21:10 | XMS_ITS | Continuity of Care Document ---
:1960 Author Organization [facility] Adult Address [address] [place] [address]- Care Team Providers Name Role Phone Francesco SAMANIEGO, Samara Eid Primary Care Physician Encounter [facility] Date(s): 04/28/19 - 06/23/19 [facility] [address] [place] [id number]- [facility] Attending Physician: Not on Staff, Attending MD Allergies, Adverse Reactions, Alerts Substance Reaction Severity Status NKA Active Immunizations Given and Recorded Vaccine Date Status Refusal Reason Influenza Virus Vaccine (oldterm) 03/15/19 Recorded tetanus/diphtheria/pertussis, acel(Tdap) 01/05/18 Given influenza virus vaccine, inactivated 06/23/17 Given pneumococcal 23-valent vaccine 06/23/17 Given Medications Advair Diskus 250 mcg-50 mcg inhalation powder 1, puffs, Inhalation, 2 times a day, # 60 each, Refills 2, Tot. Refills 2, Maintenance, 06/09/19 10:04:00 EST, Powder, Route to Pharmacy Electronically, [id number], [facility]/pharmacy #[id number], 162, cm, 04/28/19 10:54:00 EST, Height,... Start Date: 06/09/19 Status: OrderedAutoCPAP 8-20 cm H2O with heated [...] capsule, Refills 0, Tot. Refills 0, Maintenance, 06/03/19 9:46:00 EST, Route to Pharmacy Electronically, [facility]/pharmacy #[id number], 162, cm, 04/28/19 10:54:00 EST, Height, 109, kg, 06/22/17 0:46:00 EST, Dry Weight Start Date: 06/03/19 Status: OrderedhydrOXYzine pamoate 25 mg oral capsule [...] BE TAKEN AT LEAST 24 HOURS APART, [facility] #[id number] Start Date: 01/27/19 Status: Orderedmeloxicam 15 mg oral tablet See Instructions, TAKE 1 TABLET BY MOUTH DAILY. Dispense in bubble form, # 30 tablet, 5 Refills, Soft Stop, 06/07/19 13:00:00 EST, [facility]/pharmacy #[id number], Dispense in bubble form, 162, cm, 04/28/19 10:54:00 EST, Height, 109, kg, 06/22/17 0:46:00 EST, Dry... Start Date: 06/07/19 Status: OrderedOXcarbazepine 150 mg oral tablet TAKE 1 TABLET BY MOUTH EVERY MORNING DIRECTED IN ADDITION TO 300MG TABLET. Start Date: 04/28/19 Status: OrderedOXcarbazepine 300 mg oral tablet TAKE 1 TABLET BY MOUTH EVERY MORNING AND TAKE 3 TABLETS AT BEDTIME Start Date: 04/28/19 Status: OrderedSpiriva HandiHaler 18 mcg inhalation capsule 1 capsule = 18 mcg, Inhalation, Daily, # 30 capsule, 5 Refills, Maintenance, 04/28/19 11:47:41 EST Start Date: 04/28/19 Stop Date: 10/25/19 Status: OrderedTrileptal 300 mg oral tablet 300 mg, 1, tablet, By Mouth, 2 times a day, # 90 tablet, Refills 0, Tot. Refills 0, Maintenance, 06/24/17 12:32:51, Route to Pharmacy Electronically, [id number], [facility] [address] [facility] Start Date: 06/24/17 Stop Date: [...]
--- OUTSIDE RECORDS SUMMARY | 2022-04-24 21:10 | XMS_ITS | Continuity of Care Document ---
:1960 Author Organization [facility] Address [address] [place] [address]- Care Team Providers Name Role Phone Francesco [employer], Samara Eid Primary Care Physician [place] [facility] [place](s): 11/08/19 - 11/15/19 [facility] [address] [place] [id number]- [facility] Attending Physician: Yumiko Herndon MD Allergies, Adverse Reactions, Alerts Substance Reaction Severity Status NKA Active Immunizations Given and Recorded Vaccine Date Status Refusal Reason Influenza Virus Vaccine (oldterm) 03/15/19 Recorded tetanus/diphtheria/pertussis, acel(Tdap) 01/05/18 Given influenza virus vaccine, inactivated 06/23/17 Given pneumococcal 23-valent vaccine 06/23/17 Given Medications Advair Diskus 250 mcg-50 mcg inhalation powder 1, puffs, Inhalation, 2 times a day, # 1 each, Refills 2, Tot. Refills 2, Maintenance, 09/05/19 10:52:00 EDT, Powder, Route to Pharmacy Electronically, NCPDP_[id number], [facility]-, 162, cm, 04/28/19 10:54:00 EST, Height, Dry... Start Date: 09/05/19 Stop Date: 12/04/19 Status: OrderedAutoCPAP 8-20 cm H2O with heated [...] 07/04/19 14:11:00 EST, Route to Pharmacy Electronically, [id number], 162, cm, 04/28/19 10:54:00 EST, Height Start [...] BE TAKEN AT LEAST 24 HOURS APART, [facility] #[id number] Start Date: 01/27/19 Status: OrderedMedrol 4 mg oral tablet 1 pack/packet, By Mouth, Once, as directed on package labeling, # 21 tablet, 0 Refills, Soft Stop, 11/08/19 16:28:00 EDT, Tablet, [facility], 162, cm, 11/08/19 15:32:00 EDT, Height Start Date: 11/08/19 Status: Orderedmeloxicam 15 mg oral tablet See Instructions, TAKE 1 TABLET BY MOUTH DAILY. Dispense in bubble form, # 30 tablet, 5 Refills, Soft Stop, 06/07/19 13:00:00 EST, [facility]/pharmacy #[id number], Dispense in bubble form, [...] 18 mcg, Inhalation, Daily, # 30 capsule, 3 Refills, Maintenance, 07/11/19 8:45:00 EST, [facility]-14339, 162, cm, 04/28/19 10:54:00 EST, Height Start Date: 07/11/19 Stop Date: 11/08/19 Status: OrderedTrileptal 300 mg oral tablet 300 mg, 1, tablet, By Mouth, 2 times a day, # 90 tablet, Refills 0, Tot. Refills 0, Maintenance, 06/24/17 12:32:51, Route to Pharmacy Electronically, [id number], [facility] [address] [facility] Start Date: 06/24/17 Stop Date: 08/08/17 Status: [...] Restless leg syndrome(Confirmed) Active Sleepwalking disorder(Confirmed) Active Vital Signs Most recent to oldest [Reference Range]: 1 Height 162 cm (11/08/19 3:32 PM) Weight 109.09 kg (11/08/19 3:32 PM) Body Mass Index [18.5-24.99] 41.57 *>HHI* (11/08/19 3:32 PM) Social History Social History Type Response Smoking Status Never smoker entered on: 10/28/17 Sex Female
--- OUTSIDE RECORDS SUMMARY | 2022-04-24 21:11 | XMS_ITS | Continuity of Care Document ---
:1960 Author Organization [facility] Adult Address [address] [place] [address]- Care Team Providers Name Role Phone Francesco SAMANIEGO, Samara Eid Primary Care Physician Encounter [facility] Date(s): 02/24/20 - 03/25/20 [facility] [address] [place] [id number]- [place] States Allergies, Adverse Reactions, Alerts Substance Reaction [...] 16:21:00 EST, Powder, Route to Pharmacy Electronically, NCPDP_[id number], [facility], 162, cm, 02/23/20 14:38:00 EDT, Height, Dry [...] 07/04/19 14:11:00 EST, Route to Pharmacy Electronically, [id number], 162, cm, 04/28/19 10:54:00 EST, Height Start [...] BE TAKEN AT LEAST 24 HOURS APART, [id number] Start Date: 01/27/19 Status: Orderedmeloxicam 15 mg oral tablet See Instructions, TAKE 1 TABLET BY MOUTH DAILY. Dispense in bubble form, # 30 tablet, 5 Refills, Soft Stop, 02/28/20 11:54:00 EDT, [place], [place] - [phone], Dispense in bubble form, 162, cm, 02/23/20 [...] 03/19/20 12:37:00 EDT, Aerosol, [facility] - [place], [place] - [id number], 162, cm, 03/01/20 8:47:00 EDT, Height Start Date: 03/19/20 Status: OrderedTrileptal 300 mg oral tablet 300 mg, 1, tablet, By Mouth, 2 times a day, # 90 tablet, Refills 0, Tot. Refills 0, Maintenance, 06/24/17 12:32:51, Route to Pharmacy Electronically, [id number], [facility] - [address] [facility] Start Date: 06/24/17 Stop Date: 08/08/17 Status: [...]
--- OUTSIDE RECORDS SUMMARY | 2022-04-24 21:11 | XMS_ITS | Continuity of Care Document ---
:1960 Author Organization [facility] Adult Address [address] [place] [id number]- Care Team Providers Name Role Phone Francesco SAMANIEGO, Samara Eid Primary Care Physician Encounter [facility] Date(s): 07/18/21 - 08/17/21 [facility] [address] [place] [id number]- Allergies, Adverse Reactions, Alerts No Known Allergies [...] 0 Refills, Maintenance, 01/16/21 16:31:00 EDT, Gel, [facility] [place], [place] - [phone], Partial fill upon... Start Date: 01/16/21 Stop Date: 01/30/21 Status: Orderedduloxetine 60 mg oral enteric coated capsule 1 capsule = 60 mg, By Mouth, Daily at bedtime, # 30 capsule, 0 Refills, Maintenance, 12/19/20 9:26:00 EDT, Capsule, [facility] [phone], Partial fill upon patient request if the prescription is for a schedule II opioid drug.... Start Date: 12/19/20 Status: Orderedgabapentin 300 mg oral capsule See Instructions, Take one capsul in the morning and two capsules at bedtime, # 90 capsule, Refills 0, Tot. Refills 0, Maintenance, 12/19/20 9:27:00 EDT, Instructions Replace Required Details, Route toPharmacy Electronically, [facility]... Start Date: 12/19/20 Status: OrderedhydrOXYzine [...] 12/19/20 9:27:00 EDT, Route to Pharmacy Electronically, [facility] [phone],Partial fill upon patient request if the prescrip... Start Date: 12/19/20 Status: OrderedSpiriva Respimat 1.25 mcg/inh inhalation aerosol 2 puffs, Inhalation, Daily, Duplicate from 04/22/21 remaining refills sent, # 4 Gm, 2 Refills, 07/10/21 10:42:00 EST, [id number], 163, cm, 01/31/21 8:38:00 EDT, Height, 105.6, kg, 12/15/20 3:15:00 EDT, Dry Weight Start Date: 07/10/21 Status: OrderedTrileptal 300 mg oral tablet 600 mg, 2, tablet, By Mouth, 2 times a day, # 120 tablet, Refills 0, Tot. Refills 0, Maintenance, 12/19/20 9:27:00 EDT, Route to Pharmacy Electronically, [facility] [phone],Partial fill upon patient request if the prescrip... Start Date: 12/19/20 Status: OrderedWixela Inhub 250 mcg-50 mcg inhalation powder 1 puffs, Inhalation, 2 times a day, # 60 Unknown, 5 Refills, 07/10/21 10:42:00 EST, [facility]-[id number], 30, 1 puffs Inhalation 2 times a [...]
--- OUTSIDE RECORDS SUMMARY | 2022-04-24 21:11 | XMS_ITS | Continuity of Care Document ---
:1960 Author Organization [facility] Adult Address [address] [place] [address]- Care Team Providers Name Role Phone Francesco SAMANIEGO, Samara Eid Primary Care Physician Encounter [facility] Date(s): 02/16/20 - 03/17/20 [facility] Adult [address] [place] [address]- [place] Allergies, Adverse Reactions, Alerts Substance Reaction [...] 16:21:00 EST, Powder, Route to Pharmacy Electronically, [id number]_[id number], [facility], 162, cm, 02/23/20 14:38:00 EDT, Height, Dry [...] 07/04/19 14:11:00 EST, Route to Pharmacy Electronically, [id number], 162, cm, 04/28/19 10:54:00 EST, Height Start [...] BE TAKEN AT LEAST 24 HOURS APART, [facility][id number] Start Date: 01/27/19 Status: Orderedmeloxicam 15 mg oral tablet See Instructions, TAKE 1 TABLET BY MOUTH DAILY. Dispense in bubble form, # 30 tablet, 5 Refills, Soft Stop, 02/28/20 11:54:00 EDT, [place], [place] - [id number], Dispense in bubble form, 162, cm, 02/23/20 [...] Daily, # 30 capsule, 5 Refills, Maintenance, 07/16/20 12:09:00 EST, [facility] [place], [place] - [phone], 162, cm, 03/01/20 8:47:00 EDT, Height Start Date: 07/16/20 Stop Date: 01/12/21 Status: OrderedSpiriva HandiHaler 18 mcg inhalation capsule 1 capsule = 18 mcg, Inhalation, Daily, for 30 days, # 30 capsule, 5 Refills, Hard Stop 07/16/20 12:09:00 EST, 01/18/20 12:09:00 EDT, [facility], 162, cm, 11/08/19 15:32:00 EDT, Height Start Date: 01/18/20 Stop Date: 07/16/20 Status: OrderedTrileptal 300 mg oral tablet 300 mg, 1, tablet, By Mouth, 2 times a day, # 90 tablet, Refills 0, Tot. Refills 0, Maintenance, 06/24/17 12:32:51, Route to Pharmacy Electronically, [id number], [facility] Start Date: 06/24/17 Stop Date: 08/08/17 [...]
--- OUTSIDE RECORDS SUMMARY | 2022-04-24 21:11 | XMS_ITS | Continuity of Care Document ---
:1960 Author Organization [facility] Address Unavailable , Care Team Providers Name Role Phone Samara Maya NP Primary Care Physician Encounter [facility] Date(s): 08/26/21 - 09/25/21 [facility] Attending Physician: Gissel Vance Admitting Physician: Gissel Vance Referring Physician: AdmtrGissel Allergies, Adverse Reactions, Alerts No Known Allergies [...] 09/01/21 Status: Ordereddexamethasone/neomycin/polymyxin B ophthalmic 1 mg-3.5 mg-20552 u/gm ointment 1 application, Eyes, Both, 3 [...] Instructions Replace Required Details, Route toPharmacy Electronically, [facility]... Start Date: 12/19/20 Status: OrderedhydrOXYzine pamoate [...] Tot. Refills 1, Maintenance, Pain , Moderate, 09/11/21 16:39:00 EDT, Route to Pharmacy Electronically, [facility]/pharmacy #6, Partial f... Start Date: 09/11/21 Status: OrderedSpiriva Respimat 1.25 mcg/inh inhalation aerosol 2 puffs, Inhalation, Daily, Duplicate from 04/22/21 remaining refills sent, # 4 Gm, 2 Refills, 07/10/21 10:42:00 EST, [facility]-, 163, cm, 01/31/21 8:38:00 EDT, Height, 105.6, kg, 12/15/20 3:15:00 EDT, Dry Weight Start Date: 07/10/21 Status: OrderedWixela Inhub 250 mcg-50 mcg inhalation powder 1 puffs, Inhalation, 2 times a day, # 60 Unknown, 5 Refills, 07/10/21 10:42:00 [facility], [facility]-, 30, 1 puffs Inhalation 2 times a [...]
--- OUTSIDE RECORDS SUMMARY | 2022-04-24 21:11 | XMS_ITS | Continuity of Care Document ---
:1960 Author Organization [facility] Adult Address [address] [place] [address]- Care Team Providers Name Role Phone Francesco SAMANIEGO, Samara Eid Primary Care Physician Encounter [facility] Date(s): 01/31/21 - 02/07/21 [facility] Adult [address] [place] [phone]- Encounter Diagnosis Annual physical exam (Discharge Diagnosis) - 01/31/21 Anxiety and depression (Discharge Diagnosis) - 01/31/21 Bipolar disorder (Discharge Diagnosis) - 01/31/21 COPD, moderate (Discharge Diagnosis) - 01/31/21 Morbid obesity with body mass index of 40.0-49.9 (Discharge Diagnosis) - 01/31/21 PTSD (post-traumatic stress disorder) (Discharge Diagnosis) - 01/31/21 MEENA (obstructive sleep apnea) (Discharge Diagnosis) - 01/31/21 Attending Physician: Samara Maya NP Referring Physician: Yumiko Herndon MD Allergies, Adverse Reactions, Alerts Substance Reaction Severity Status NKA Active Immunizations Given and Recorded Vaccine Date Status Refusal Reason SARS-CoV-2 (COVID-19) mRNA-1273 vaccine 08/07/20 Recorded SARS-CoV-2 [...] 0 Refills, Maintenance, 01/16/21 16:31:00 EDT, Gel, [facility] [id number], Partial fill upon... Start Date: 01/16/21 Stop Date: 01/30/21 Status: Orderedduloxetine 60 mg oral enteric coated capsule 1 capsule = 60 mg, By Mouth, Daily at bedtime, # 30 capsule, 0 Refills, Maintenance, 12/19/20 9:26:00 EDT, Capsule, [facility] [id number], Partial fill upon patient request if the prescription is for a schedule II opioid drug.... Start Date: 12/19/20 Status: Orderedgabapentin 300 mg oral capsule See Instructions, Take one capsul in the morning and two capsules at bedtime, # 90 capsule, Refills 0, Tot. Refills 0, Maintenance, 12/19/20 9:27:00 EDT, Instructions Replace Required Details, Route toPharmacy Electronically, [facility]... Start Date: 12/19/20 Status: OrderedhydrOXYzine pamoate 25 mg oral capsule Take 1 capsule by mouth three times a day as needed for sleep and anxiety Start Date: 12/15/20 Status: Orderedibuprofen 800 mg oral tablet 800 mg, 1, tablet, By Mouth, 3 times a day, PRN, for 30 days, not to exceed 3200 mg/day with food ormilk, # 90 tablet, Refills 0, Tot. Refills 0, Acute 02/15/21 16:32:00 EDT, Pain , Moderate, 01/17/2116:32:00 EDT, Route to Pharmacy Electronically,... Start Date: 01/16/21 Stop Date: 02/15/21 Status: Orderednaltrexone 50 mg oral tablet Take 1 tablet by mouth once a day Start Date: 12/15/20 Status: OrderedrisperiDONE 1 mg oral tablet 1 mg, 1, tablet, By Mouth, Daily at bedtime, # 30 tablet, Refills 0, Tot. Refills 0, Maintenance, 12/19/20 9:27:00 EDT, Route to Pharmacy Electronically, [facility] [id number],Partial fill upon patient request if the prescrip... Start Date: 12/19/20 Status: OrderedSpiriva Respimat 1.25 mcg/inh inhalation aerosol INHALE 2 PUFFS BY MOUTH INTO THE lungs DAILY Start Date: 12/15/20 Status: OrderedTrileptal 300 mg oral tablet 600 mg, 2, tablet, By Mouth, 2 times a day, # 120 tablet, Refills 0, Tot. Refills 0, Maintenance, 12/19/20 9:27:00 EDT, Route to Pharmacy Electronically, [facility] [id number],Partial fill upon patient request if the prescrip... Start Date: 12/19/20 Status: OrderedWixela Inhub 250 mcg-50 mcg inhalation powder INHALE 1 PUFF BY MOUTH INTO THE lungs two (2) times a day Start Date: 12/15/20 Status: Ordered Problem List Condition Effective Dates [...] Restless leg syndrome(Confirmed) Active Sleepwalking disorder(Confirmed) Active Diagnosis Diagnosis Type Effective Dates Health Clinical Infor mant Status Service Annual physical Discharge 01/31/21 exam Diagnosis Anxiety and Discharge 01/31/21 depression Diagnosis Bipolar disorder Discharge 01/31/21 Diagnosis COPD, moderate Discharge 01/31/21 Diagnosis Morbid obesity Discharge 01/31/21 with body mass Diagnosis index of 40.0-49.9 PTSD Discharge 01/31/21 (post-traumatic Diagnosis stress disorder) MEENA (obstructive Discharge 01/31/21 sleep apnea) Diagnosis Vital Signs Most recent to oldest [Reference Range]: 1 Height 163 cm (01/31/21 8:38 AM) Weight 110.6 kg (01/31/21 8:38 AM) Oxygen Saturation [94-100 %] 96 % (01/31/21 8:38 AM) Pulse Rate [55-90 bpm] 71 bpm (01/31/21 8:38 AM) Body Mass Index [18.5-24.99] 41.63 *>HHI* (01/31/21 8:38 AM) Blood Pressure [90-138/55-84 mm Hg] 125/68 mm Hg (01/31/21 8:38 AM) Mode of Delivery (Oxygen) Room air (01/31/21 8:38 AM) Blood pressure sites Arm, right (01/31/21 8:38 AM) Weight Obtained Via Standing scale (01/31/21 8:38 AM) Social History Social History Type Response Smoking Status Never smoker entered on: 10/28/17 Sex
--- OUTSIDE RECORDS SUMMARY | 2022-04-24 21:11 | XMS_ITS | Continuity of Care Document ---
:1960 Author Organization [facility] Address [address] [place] [address]- Care Team Providers Name Role Phone Francesco SAMANIEGO, Samara Eid Primary Care Physician Encounter [facility] Date(s): 12/25/20 - 01/24/21 [facility] [address] [place] [phone]- Allergies, Adverse Reactions, Alerts Substance Reaction Severity [...] 0 Refills, Maintenance, 01/16/21 16:31:00 EDT, Gel, [facility] [place], [place] - [id number], Partial fill upon... Start Date: 01/16/21 Stop Date: 01/30/21 Status: Orderedduloxetine 60 mg oral enteric coated capsule 1 capsule = 60 mg, By Mouth, Daily at bedtime, # 30 capsule, 0 Refills, Maintenance, 12/19/20 9:26:00 EDT, Capsule, [facility] [phone], Partial fill upon patient request if the prescription is for a schedule II opioid drug.... Start Date: 12/19/20 Status: Orderedgabapentin 300 mg oral capsule See Instructions, Take one capsul in the morning and two capsules at bedtime, # 90 capsule, Refills 0, Tot. Refills 0, Maintenance, 12/19/20 9:27:00 EDT, Instructions Replace Required Details, Route toPharmacy Electronically, [facility]... Start Date: 12/19/20 Status: OrderedhydrOXYzine pamoate [...] 9:27:00 EDT, Route to Pharmacy Electronically, [facility] [phone],Partial fill upon patient request if the prescrip... Start Date: 12/19/20 Status: OrderedSpiriva Respimat 1.25 mcg/inh inhalation aerosol INHALE 2 PUFFS BY MOUTH INTO THE lungs DAILY Start Date: 12/15/20 Status: OrderedTrileptal 300 mg oral tablet 600 mg, 2, tablet, By Mouth, 2 times a day, # 120 tablet, Refills 0, Tot. Refills 0, Maintenance, 12/19/20 9:27:00 EDT, Route to Pharmacy Electronically, [facility] [place], [place] - [phone],Partial fill upon patient request if the prescrip... [...]
--- OUTSIDE RECORDS SUMMARY | 2022-04-24 21:11 | XMS_ITS | Continuity of Care Document ---
:1960 Author Organization [facility] Adult Address [address] [place] [address]- Care Team Providers Name Role Phone Samara Maya NP Primary Care Physician Encounter [facility] Date(s): 01/03/22 - 02/02/22 [facility] Adult [address] [place] [phone]- Allergies, Adverse Reactions, Alerts No Known Allergies [...] 09/01/21 Status: Ordereddexamethasone/neomycin/polymyxin B ophthalmic 1 mg-3.5 mg-12146 u/gm ointment 1 application, Eyes, Both, 3 [...] Instructions Replace Required Details, Route toPharmacy Electronically, [facility]... Start Date: 12/19/20 Status: OrderedhydrOXYzine pamoate 25 [...] 11/13/21 15:32:00 EDT, Route to Pharmacy Electronically, [facility][id number],... Start Date: 11/13/21 Status: OrderedSpiriva Respimat 1.25 mcg/inh inhalation aerosol 2 puffs, Inhalation, Daily, Duplicate from 04/22/21 remaining refills sent, # 4 Gm, 5 Refills, 10/28/21 15:13:00 EDT, [facility] #[id number], 163, cm, 09/01/21 11:23:00 EDT, Height, 108.5, kg, 09/01/21 11:23:00 EDT, Dry Weight Start Date: 10/28/21 Status: OrderedWixela Inhub 250 mcg-50 mcg inhalation powder 1 puffs, Inhalation, 2 times a day, # 60 Unknown, 5 Refills, 10/28/21 15:13:00 EDT, [facility] #[id number], 30, 1 puffs Inhalation 2 times a [...] Status Never smoker entered on: 10/28/17 Sex Care Team PersonnelName: Samara Maya NP Address: [address] [place] [address] [address]rd floor [place], [place] [address]
--- OUTSIDE RECORDS SUMMARY | 2022-04-24 21:11 | XMS_ITS | Continuity of Care Document ---
:1960 Author Organization [facility] Adult Address [address] [place] [address]- Care Team Providers Name Role Phone Francesco SAMANIEGO, Samara Eid Primary Care Physician Encounter [facility] Date(s): 01/14/21 - 02/13/21 [facility] [address] [place] [phone]- Allergies, Adverse Reactions, Alerts Substance Reaction Severity [...] 0 Refills, Maintenance, 01/16/21 16:31:00 EDT, Gel, [facility] [place], [place] - [id number], Partial fill upon... Start Date: 01/16/21 Stop Date: 01/30/21 Status: Orderedduloxetine 60 mg oral enteric coated capsule 1 capsule = 60 mg, By Mouth, Daily at bedtime, # 30 capsule, 0 Refills, Maintenance, 12/19/20 9:26:00 EDT, Capsule, [facility] [id number], Partial fill upon patient request if the prescription is for a schedule II opioid drug.... Start Date: 12/19/20 Status: Orderedgabapentin 300 mg oral capsule See Instructions, Take one capsul in the morning and two capsules at bedtime, # 90 capsule, Refills 0, Tot. Refills 0, Maintenance, 12/19/20 9:27:00 EDT, Instructions Replace Required Details, Route toPharmacy Electronically, [facility]... Start Date: 12/19/20 Status: OrderedhydrOXYzine [...] 12/19/20 9:27:00 EDT, Route to Pharmacy Electronically, [facility] [phone],Partial fill upon patient request if the prescrip... Start Date: 12/19/20 Status: OrderedSpiriva Respimat 1.25 mcg/inh inhalation aerosol INHALE 2 PUFFS BY MOUTH INTO THE lungs DAILY Start Date: 12/15/20 Status: OrderedTrileptal 300 mg oral tablet 600 mg, 2, tablet, By Mouth, 2 times a day, # 120 tablet, Refills 0, Tot. Refills 0, Maintenance, 12/19/20 9:27:00 EDT, Route to Pharmacy Electronically, [facility] [place], [place] - [phone],Partial fill upon patient request if the prescrip... [...]
--- OUTSIDE RECORDS SUMMARY | 2022-04-24 21:11 | XMS_ITS | Continuity of Care Document ---
:1960 Author Organization [facility] Adult Address [address] [place] [address]- Care Team Providers Name Role Phone Francesco SAMANIEGO, Samara O Primary Care Physician Encounter [facility] Date(s): 02/23/20 - 03/01/20 [facility] Adult [address] [place] [phone]- [facility] Attending Physician: Rj Vargas MD Allergies, Adverse Reactions, Alerts Substance Reaction [...] 16:21:00 EST, Powder, Route to Pharmacy Electronically, NCPDP_[id number], [facility], 162, cm, 02/23/20 14:38:00 EDT, Height, Dry [...] 07/04/19 14:11:00 EST, Route to Pharmacy Electronically, [id number], 162, cm, 04/28/19 10:54:00 EST, Height Start [...] BE TAKEN AT LEAST 24 HOURS APART, [facility] #[id number] Start Date: 01/27/19 Status: Orderedmeloxicam 15 mg oral tablet See Instructions, TAKE 1 TABLET BY MOUTH DAILY. Dispense in bubble form, # 30 tablet, 5 Refills, Soft Stop, 02/28/20 11:54:00 EDT, [facility] [place], [place] - [id number], Dispense in bubble form, 162, cm, 02/23/20 [...] Daily, # 30 capsule, 5 Refills, Maintenance, 01/18/20 12:09:00 EDT, [facility], 162, cm, 11/08/19 15:32:00 EDT, Height Start Date: 01/18/20 Stop Date: 07/16/20 Status: OrderedTrileptal 300 mg oral tablet 300 mg, 1, tablet, By Mouth, 2 times a day, # 90 tablet, Refills 0, Tot. Refills 0, Maintenance, 06/24/17 12:32:51, Route to Pharmacy Electronically, [id number], [facility] Start Date: 06/24/17 Stop Date: 08/08/17 [...] oldest [Reference Range]: 1 Height 162 cm (02/23/20 2:38 PM) Social History Social History Type Response Smoking Status Never smoker entered on: 10/28/17 Sex Female
--- OUTSIDE RECORDS SUMMARY | 2022-04-24 21:11 | XMS_ITS | Continuity of Care Document ---
:1960 Author Organization [facility] Adult Address [address] [place] [address]- Care Team Providers Name Role Phone Samara Maya NP Primary Care Physician Encounter [facility] [place] Date(s): 01/10/21 - 01/17/21 [facility] [address] [place] [phone]- Encounter Diagnosis Anxiety and depression (Discharge Diagnosis) - 01/10/21 Bipolar disorder (Discharge Diagnosis) - 01/10/21 COPD, moderate (Discharge Diagnosis) - 01/10/21 History of heroin abuse (Discharge Diagnosis) - 01/10/21 Morbid obesity with body mass index of 40.0-49.9 (Discharge Diagnosis) - 01/10/21 Polysubstance abuse (Discharge Diagnosis) - 01/10/21 Chronic depression (Discharge Diagnosis) - 01/10/21 Attending Physician: Samara Maya NP Allergies, Adverse Reactions, Alerts Substance Reaction Severity [...] 0 Refills, Maintenance, 01/16/21 16:31:00 EDT, Gel, [facility] [id number], Partial fill upon... Start Date: 01/16/21 Stop Date: 01/30/21 Status: Orderedduloxetine 60 mg oral enteric coated capsule 1 capsule = 60 mg, By Mouth, Daily at bedtime, # 30 capsule, 0 Refills, Maintenance, 12/19/20 9:26:00 EDT, Capsule, [facility] [id number], Partial fill upon patient request if the prescription is for a schedule II opioid drug.... Start Date: 12/19/20 Status: Orderedgabapentin 300 mg oral capsule See Instructions, Take one capsul in the morning and two capsules at bedtime, # 90 capsule, Refills 0, Tot. Refills 0, Maintenance, 12/19/20 9:27:00 EDT, Instructions Replace Required Details, Route toPharmacy Electronically, [facility]... Start Date: 12/19/20 Status: OrderedhydrOXYzine pamoate [...] 12/19/20 9:27:00 EDT, Route to Pharmacy Electronically, [facility] [phone],Partial fill upon patient request if the prescrip... Start Date: 12/19/20 Status: OrderedSpiriva Respimat 1.25 mcg/inh inhalation aerosol INHALE 2 PUFFS BY MOUTH INTO THE lungs DAILY Start Date: 12/15/20 Status: OrderedTrileptal 300 mg oral tablet 600 mg, 2, tablet, By Mouth, 2 times a day, # 120 tablet, Refills 0, Tot. Refills 0, Maintenance, 12/19/20 9:27:00 EDT, Route to Pharmacy Electronically, [facility] [id number],Partial fill upon patient request if the prescrip... [...] Dates Health Clinical Infor mant Status Service Anxiety and Discharge 01/10/21 depression Diagnosis Bipolar disorder Discharge 01/10/21 Diagnosis COPD, moderate Discharge 01/10/21 Diagnosis History of heroin Discharge 01/10/21 abuse Diagnosis Morbid obesity with Discharge 01/10/21 body mass index of Diagnosis 40.0-49.9 Polysubstance abuse Discharge 01/10/21 Diagnosis Chronic depression Discharge 01/10/21 Diagnosis Vital Signs Most recent to oldest [Reference Range]: 1 Height 163 cm (01/10/21 4:03 PM) Social History Social History Type Response Smoking Status Never smoker entered on: 10/28/17 Sex
--- OUTSIDE RECORDS SUMMARY | 2022-04-24 21:11 | XMS_ITS | Continuity of Care Document ---
:1960 Author Organization [facility] Adult Address [address] [place] [address]- Care Team Providers Name Role Phone Francesco SAMANIEGO, Samara Eid Primary Care Physician Encounter [facility] Date(s): 12/28/20 - 01/27/21 [facility] Adult [address] [place] [phone]- Allergies, Adverse Reactions, Alerts Substance Reaction Severity [...] 0 Refills, Maintenance, 01/16/21 16:31:00 EDT, Gel, [facility] [place], [place] - [id number], Partial fill upon... Start Date: 01/16/21 Stop Date: 01/30/21 Status: Orderedduloxetine 60 mg oral enteric coated capsule 1 capsule = 60 mg, By Mouth, Daily at bedtime, # 30 capsule, 0 Refills, Maintenance, 12/19/20 9:26:00 EDT, Capsule, [facility] [phone], Partial fill upon patient request if the prescription is for a schedule II opioid drug.... Start Date: 12/19/20 Status: Orderedgabapentin 300 mg oral capsule See Instructions, Take one capsul in the morning and two capsules at bedtime, # 90 capsule, Refills 0, Tot. Refills 0, Maintenance, 12/19/20 9:27:00 EDT, Instructions Replace Required Details, Route toPharmacy Electronically, [facility]... Start Date: 12/19/20 Status: OrderedhydrOXYzine pamoate 25 [...] 12/19/20 9:27:00 EDT, Route to Pharmacy Electronically, [facility] [phone],Partial fill upon patient request if the prescrip... Start Date: 12/19/20 Status: OrderedSpiriva Respimat 1.25 mcg/inh inhalation aerosol INHALE 2 PUFFS BY MOUTH INTO THE lungs DAILY Start Date: 12/15/20 Status: OrderedTrileptal 300 mg oral tablet 600 mg, 2, tablet, By Mouth, 2 times a day, # 120 tablet, Refills 0, Tot. Refills 0, Maintenance, 12/19/20 9:27:00 EDT, Route to Pharmacy Electronically, [facility] [place], [place] - [id number],Partial fill upon patient request if the prescrip... [...]
--- OUTSIDE RECORDS SUMMARY | 2022-04-24 21:11 | XMS_ITS | Continuity of Care Document ---
:1960 Author Organization [facility] Address [address] [place] [address]- Care Team Providers Name Role Phone Samara Maya NP Primary Care Physician Encounter [facility] Date(s): 09/11/21 - 10/11/21 [facility] [address] [place] [address]- Attending Physician: Gissel Vance Admitting Physician: AdmtrGissel Referring Physician: Admtr, Ar8 Allergies, Adverse Reactions, Alerts No Known Allergies [...] 09/01/21 Status: Ordereddexamethasone/neomycin/polymyxin B ophthalmic 1 mg-3.5 mg-54707 u/gm ointment 1 application, Eyes, Both, 3 [...] Instructions Replace Required Details, Route toPharmacy Electronically, [facility]... Start Date: 12/19/20 Status: [...] 09/11/21 16:39:00 EDT, Route to Pharmacy Electronically, [facility]/pharmacy #3, Partial f... Start Date: 09/11/21 Status: OrderedSpiriva Respimat 1.25 mcg/inh inhalation aerosol 2 puffs, Inhalation, Daily, Duplicate from 04/22/21 remaining refills sent, # 4 Gm, 2 Refills, 07/10/21 10:42:00 EST, [facility]-, 163, cm, 01/31/21 8:38:00 EDT, Height, 105.6, kg, 12/15/20 3:15:00 EDT, Dry Weight Start Date: 07/10/21 Status: OrderedWixela Inhub 250 mcg-50 mcg inhalation powder 1 puffs, Inhalation, 2 times a day, # 60 Unknown, 5 Refills, 07/10/21 10:42:00 [facility], [facility]-, 30, 1 puffs Inhalation 2 times [...]
--- OUTSIDE RECORDS SUMMARY | 2022-04-24 21:11 | XMS_ITS | Continuity of Care Document ---
:1960 Author Organization [facility] Adult Address [address] [place] [phone]- Care Team Providers Name Role Phone Samara Maya NP Primary Care Physician Encounter [facility] Date(s): 07/15/21 - 07/22/21 [facility] Adult [address] [place] [phone]- Encounter Diagnosis Rash of body (Discharge Diagnosis) - 07/15/21 Pityriasis rosea (Discharge Diagnosis) - 07/15/21 Alcohol abuse (Discharge Diagnosis) - 07/15/21 Bipolar disorder (Discharge Diagnosis) - 07/15/21 COPD, moderate (Discharge Diagnosis) - 07/15/21 H/O cocaine abuse (Discharge Diagnosis) - 07/15/21 History of heroin abuse (Discharge Diagnosis) - 07/15/21 Morbid obesity with body mass index of 40.0-49.9 (Discharge Diagnosis) - 07/15/21 Polysubstance abuse (Discharge Diagnosis) - 07/15/21 Severe obesity (Discharge Diagnosis) - 07/15/21 Attending Physician: Not on Staff, Attending MD Referring Physician: Samara Maya NP Allergies, Adverse Reactions, Alerts No Known Allergies [...] 0 Refills, Maintenance, 01/16/21 16:31:00 EDT, Gel, [facility] [phone], Partial fill upon... Start Date: 01/16/21 Stop Date: 01/30/21 Status: Orderedduloxetine 60 mg oral enteric coated capsule 1 capsule = 60 mg, By Mouth, Daily at bedtime, # 30 capsule, 0 Refills, Maintenance, 12/19/20 9:26:00 EDT, Capsule, [facility] [phone], Partial fill upon patient request if the prescription is for a schedule II opioid drug.... Start Date: 12/19/20 Status: Orderedgabapentin 300 mg oral capsule See Instructions, Take one capsul in the morning and two capsules at bedtime, # 90 capsule, Refills 0, Tot. Refills 0, Maintenance, 12/19/20 9:27:00 EDT, Instructions Replace Required Details, Route toPharmacy Electronically, [facility]... Start Date: 12/19/20 Status: OrderedhydrOXYzine [...] 12/19/20 9:27:00 EDT, Route to Pharmacy Electronically, [facility] [phone],Partial fill upon patient request if the prescrip... Start Date: 12/19/20 Status: OrderedSpiriva Respimat 1.25 mcg/inh inhalation aerosol 2 puffs, Inhalation, Daily, Duplicate from 04/22/21 remaining refills sent, # 4 Gm, 2 Refills, 07/10/21 10:42:00 [facility]-, 163, cm, 01/31/21 8:38:00 EDT, Height, 105.6, kg, 12/15/20 3:15:00 EDT, Dry Weight Start Date: 07/10/21 Status: OrderedTrileptal 300 mg oral tablet 600 mg, 2, tablet, By Mouth, 2 times a day, # 120 tablet, Refills 0, Tot. Refills 0, Maintenance, 12/19/20 9:27:00 EDT, Route to Pharmacy Electronically, [place], [place] - [phone],Partial fill upon patient request if the prescrip... Start Date: 12/19/20 Status: OrderedWixela Inhub 250 mcg-50 mcg inhalation powder 1 puffs, Inhalation, 2 times a day, # 60 Unknown, 5 Refills, 07/10/21 10:42:00 [facility]-, 30, 1 puffs Inhalation 2 times [...] Active Severe obesity(Confirmed) Active Sleepwalking disorder(Confirmed) Active Diagnosis Diagnosis Type Effective Dates Health Clinical Infor mant Status Service Rash of body Discharge 07/15/21 Diagnosis Pityriasis rosea Discharge 07/15/21 Diagnosis Alcohol abuse Discharge 07/15/21 Diagnosis Bipolar disorder Discharge 07/15/21 Diagnosis COPD, moderate Discharge 07/15/21 Diagnosis H/O cocaine abuse Discharge 07/15/21 Diagnosis History of heroin Discharge 07/15/21 abuse Diagnosis Morbid obesity with Discharge 07/15/21 body mass index of Diagnosis 40.0-49.9 Polysubstance abuse Discharge 07/15/21 Diagnosis Severe obesity Discharge 07/15/21 Diagnosis Vital Signs Most recent to oldest [Reference Range]: 1 Height 163 cm (07/15/21 1:54 PM) Weight 113.0 kg (07/15/21 1:54 PM) Oxygen Saturation [94-100 %] 97 % (07/15/21 1:54 PM) Pulse Rate [55-90 bpm] 69 bpm (07/15/21 1:54 PM) Body Mass Index [18.5-24.99] 42.53 *>HHI* (07/15/21 1:54 PM) Blood Pressure [90-138/55-84 mm Hg] 114/80 mm Hg (07/15/21 1:54 PM) Respiratory Rate [16-30 br/min] 16 br/min (07/15/21 1:54 PM) Mode of Delivery (Oxygen) Room air (07/15/21 1:54 PM) Blood pressure sites Arm, left (07/15/21 1:54 PM) Weight Obtained Via Standing scale (07/15/21 1:54 PM) Social History Social History Type Response Smoking Status Never smoker entered on: 10/28/17 Sex
--- OUTSIDE RECORDS SUMMARY | 2022-04-24 21:11 | XMS_ITS | Continuity of Care Document ---
:1960 Author Organization [facility] Address Unavailable , Care Team Providers Name Role Phone Francesco SAMANIEGO, Samara Eid Primary Care Physician Encounter [facility] [place] [place] Date(s): 08/05/21 - 09/04/21 [facility] Allergies, Adverse Reactions, Alerts No Known Allergies [...] 09/01/21 Status: Ordereddexamethasone/neomycin/polymyxin B ophthalmic 1 mg-3.5 mg-49767 u/gm ointment 1 application, Eyes, Both, 3 [...] Instructions Replace Required Details, Route toPharmacy Electronically, [facility] [place]... Start Date: 12/19/20 [...] 4 Gm, 2 Refills, 07/10/21 10:42:00 EST, [place]-, 163, cm, 01/31/21 8:38:00 EDT, Height, 105.6, kg, 12/15/20 3:15:00 EDT, Dry Weight Start Date: 07/10/21 Status: OrderedWixela Inhub 250 mcg-50 mcg inhalation powder 1 puffs, Inhalation, 2 times a day, # 60 Unknown, 5 Refills, [facility]21 [facility] 1 puffs Inhalation 2 [...]
--- OUTSIDE RECORDS SUMMARY | 2022-04-24 21:11 | XMS_ITS | Continuity of Care Document ---
:1960 Author Organization [facility] Adult Address [address] [place] [address]- Care Team Providers Name Role Phone Francesco SAMANIEGO, Samara Eid Primary Care Physician Encounter [facility] [place] [facility] Date(s): 04/12/21 - 05/12/21 [facility] Adult [address] [place] [phone]- Allergies, Adverse Reactions, Alerts Substance Reaction Severity [...] 0 Refills, Maintenance, 01/16/21 16:31:00 EDT, Gel, [facility] [place], [place] - [id number], Partial fill upon... Start Date: 01/16/21 Stop Date: 01/30/21 Status: Orderedduloxetine 60 mg oral enteric coated capsule 1 capsule = 60 mg, By Mouth, Daily at bedtime, # 30 capsule, 0 Refills, Maintenance, 12/19/20 9:26:00 EDT, Capsule, [facility] [phone], Partial fill upon patient request if the prescription is for a schedule II opioid drug.... Start Date: 12/19/20 Status: Orderedgabapentin 300 mg oral capsule See Instructions, Take one capsul in the morning and two capsules at bedtime, # 90 capsule, Refills 0, Tot. Refills 0, Maintenance, 12/19/20 9:27:00 EDT, Instructions Replace Required Details, Route toPharmacy Electronically, [facility]... Start Date: 12/19/20 Status: OrderedhydrOXYzine pamoate 25 [...] 12/19/20 9:27:00 EDT, Route to Pharmacy Electronically, [facility] [id number],Partial fill upon patient request if the prescrip... Start Date: 12/19/20 Status: OrderedSpiriva Respimat 1.25 mcg/inh inhalation aerosol 2 puffs, Inhalation, Daily, # 4 Gm, 5 Refills, [facility], 163, cm, 01/31/21 8:38:00 EDT, Height, 105.6, kg, 12/15/20 3:15:00 EDT, Dry Weight Start Date: 04/22/21 Status: OrderedTrileptal 300 mg oral tablet 600 mg, 2, tablet, By Mouth, 2 times a day, # 120 tablet, Refills 0, Tot. Refills 0, Maintenance, 12/19/20 9:27:00 EDT, Route to Pharmacy Electronically, [facility] [phone],Partial fill upon patient request if the prescrip... Start Date: 12/19/20 Status: OrderedWixela Inhub 250 mcg-50 mcg inhalation powder 1 puffs, Inhalation, 2 times a day, # 60 Unknown, 3 Refills, [facility], 30, INHALE 1 PUFF BY MOUTH INTO THE lungs two (2) times a day, 163, cm, 01/31/21 8:38:00 EDT, Height, 105.6, kg, 12/15/20 3:15:00 EDT, Dry Weight Start Date: 03/20/21 Status: Ordered Problem List Condition Effective Dates [...]
--- OUTSIDE RECORDS SUMMARY | 2022-04-24 21:11 | XMS_ITS | Continuity of Care Document ---
:1960 Author Organization [facility] Adult Address [address] [place] [address]- Care Team Providers Name Role Phone Francesco SAMANIEGO, Samara Eid Primary Care Physician Encounter [facility] Date(s): 05/27/21 - 06/26/21 [facility] Adult [address] [place] [phone]- Attending Physician: Admnanci, Gissel Admitting Physician: AdmtrGissel Referring Physician: Admtr, Ar8 [...] 0 Refills, Maintenance, 01/16/21 16:31:00 EDT, Gel, [facility]- [place], [place] - [id number], Partial fill upon... Start Date: 01/16/21 Stop Date: 01/30/21 Status: Orderedduloxetine 60 mg oral enteric coated capsule 1 capsule = 60 mg, By Mouth, Daily at bedtime, # 30 capsule, 0 Refills, Maintenance, 12/19/20 9:26:00 EDT, Capsule, [facility] [id number], Partial fill upon patient request if the prescription is for a schedule II opioid drug.... Start Date: 12/19/20 Status: Orderedgabapentin 300 mg oral capsule See Instructions, Take one capsul in the morning and two capsules at bedtime, # 90 capsule, Refills 0, Tot. Refills 0, Maintenance, 12/19/20 9:27:00 EDT, Instructions Replace Required Details, Route toPharmacy Electronically, [facility]... Start Date: 12/19/20 Status: OrderedhydrOXYzine [...] 12/19/20 9:27:00 EDT, Route to Pharmacy Electronically, [facility] [phone],Partial fill upon patient request if the prescrip... Start Date: 12/19/20 Status: OrderedSpiriva Respimat 1.25 mcg/inh inhalation aerosol 2 puffs, Inhalation, Daily, # 4 Gm, 5 Refills, [facility], 163, cm, 01/31/21 8:38:00 EDT, Height, 105.6, kg, 12/15/20 3:15:00 EDT, Dry Weight Start Date: 04/22/21 Status: OrderedTrileptal 300 mg oral tablet 600 mg, 2, tablet, By Mouth, 2 times a day, # 120 tablet, Refills 0, Tot. Refills 0, Maintenance, 12/19/20 9:27:00 EDT, Route to Pharmacy Electronically, [facility] [id number],Partial fill upon patient request if the prescrip... [...]
--- OUTSIDE RECORDS SUMMARY | 2022-04-24 21:11 | XMS_ITS | Continuity of Care Document ---
:1960 Author Organization [facility] Address [address] [place] [phone]- Care Team Providers Name Role Phone Francesco SAMANIEGO, Samara Eid Primary Care Physician En[place] [facility] [place] Date(s): 02/05/22 - 03/13/[address] [address] Attending Physician: Samara Maya NP Admitting Physician: Samara Maya NP Referring Physician: Samara Maya NP Allergies, Adverse [...] 09/01/21 Status: Ordereddexamethasone/neomycin/polymyxin B ophthalmic 1 mg-3.5 mg-65487 u/gm ointment 1 application, Eyes, Both, 3 [...] Instructions Replace Required Details, Route toPharmacy Electronically, [facility] [place]... Start Date: 12/19/20 [...] food or milk, # 90 tablet, Refills 0, Tot. Refills 0, Maintenance, Pain , Moderate, 02/21/22 13:49:00 EDT, Route to Pharmacy Electronically, [id number],... Start Date: 02/21/22 Status: OrderedSpiriva Respimat 1.25 mcg/inh inhalation aerosol 2 puffs, Inhalation, Daily, Duplicate from 04/22/21 remaining refills sent, # 4 Gm, 5 Refills, 10/28/21 15:13:00 EDT, [facility] #[id number], 163, cm, 09/01/21 11:23:00 EDT, Height, 108.5, kg, 09/01/21 11:23:00 EDT, Dry Weight Start Date: 10/28/21 Status: OrderedWixela Inhub 250 mcg-50 mcg inhalation powder 1 puffs, Inhalation, 2 times a day, # 60 Unknown, 5 Refills, 10/28/21 15:13:00 EDT, [facility] #[id number], 30, 1 puffs Inhalation 2 times a day, 163, cm, 09/01/21 11:23:00 EDT, Height, 108.5, kg,09/01/21 11:23:00 EDT, Dry Weight Start Date: 10/28/21 Status: Ordered Problem List Condition Confirmation Course Effective Dates Status Health I nformant Status Bipolar disorder Confirmed Active Chronic depression Confirmed Active Other disorders of Confirmed Active iron metabolism Dyslipidemia Confirmed Active H/O cocaine abuse Confirmed Active History of heroin Confirmed Active abuse Elevated LFTs Confirmed Active Anxiety and Confirmed Active depression COPD, moderate Confirmed Active Morbid obesity with Confirmed Active body mass index of 40.0-49.9 Pulmonary nodules Confirmed Active Lung nodule Confirmed Active MEENA (obstructive Confirmed Active sleep apnea) Osteoarthritis, knee Confirmed Active Polysubstance abuse Confirmed Active PTSD (post-traumatic Confirmed Active stress disorder) Restless leg Confirmed Active syndrome Severe obesity Confirmed Active Sleepwalking Confirmed Active disorder Social History Social History Type Response Smoking Status Never smoker entered on: 10/28/17 Sex Patient Care team information PersonnelName: Samara Maya NP Address: [facility] [address] [place] [address]-
--- OUTSIDE RECORDS SUMMARY | 2022-04-24 21:11 | XMS_ITS | Continuity of Care Document ---
:1960 Author Organization [facility] Adult Address [address] [place] [address]- Care Team Providers Name Role Phone Francesco SAMANIEGO, Samara Eid Primary Care Physician Encounter [facility] [place] Date(s): 04/24/21 - 05/24/21 [facility] Adult [address] [place] [address]- Allergies, Adverse Reactions, Alerts Substance Reaction Severity [...] 0 Refills, Maintenance, 01/16/21 16:31:00 EDT, Gel, [facility] [place], [place] - [id number], Partial fill upon... Start Date: 01/16/21 Stop Date: 01/30/21 Status: Orderedduloxetine 60 mg oral enteric coated capsule 1 capsule = 60 mg, By Mouth, Daily at bedtime, # 30 capsule, 0 Refills, Maintenance, 12/19/20 9:26:00 EDT, Capsule, [facility] [phone], Partial fill upon patient request if the prescription is for a schedule II opioid drug.... Start Date: 12/19/20 Status: Orderedgabapentin 300 mg oral capsule See Instructions, Take one capsul in the morning and two capsules at bedtime, # 90 capsule, Refills 0, Tot. Refills 0, Maintenance, 12/19/20 9:27:00 EDT, Instructions Replace Required Details, Route toPharmacy Electronically, [facility]... Start Date: 12/19/20 Status: OrderedhydrOXYzine pamoate 25 [...] 12/19/20 9:27:00 EDT, Route to Pharmacy Electronically, [facility] [id number],Partial fill upon patient request if the prescrip... Start Date: 12/19/20 Status: OrderedSpiriva Respimat 1.25 mcg/inh inhalation aerosol 2 puffs, Inhalation, Daily, # 4 Gm, 5 Refills, [facility], 163, cm, 01/31/21 8:38:00 EDT, Height, 105.6, kg, 12/15/20 3:15:00 EDT, Dry Weight Start Date: 04/22/21 Status: OrderedTrileptal 300 mg oral tablet 600 mg, 2, tablet, By Mouth, 2 times a day, # 120 tablet, Refills 0, Tot. Refills 0, Maintenance, 12/19/20 9:27:00 EDT, Route to Pharmacy Electronically, [facility] [id number],Partial fill upon patient request if the prescrip... [...]
--- OUTSIDE RECORDS SUMMARY | 2022-04-24 21:11 | XMS_ITS | Continuity of Care Document ---
:1960 Author Organization [facility] Adult Address [address] [place] [address]- Care Team Providers Name Role Phone Francesco SAMANIEGO, Samara Eid Primary Care Physician [place] [facility] [place] - 05/26/21 [facility] Adult [address] [place] [address]- Allergies, Adverse Reactions, Alerts Substance Reaction Severity [...] Maintenance, 01/16/21 16:31:00 EDT, Gel, [facility]- [place], [place] - [id number], Partial fill upon... Start Date: 01/16/21 Stop Date: 01/30/21 Status: Orderedduloxetine 60 mg oral enteric coated capsule 1 capsule = 60 mg, By Mouth, Daily at bedtime, # 30 capsule, 0 Refills, Maintenance, 12/19/20 9:26:00 EDT, Capsule, [facility] [id number], Partial fill upon patient request if the prescription is for a schedule II opioid drug.... Start Date: 12/19/20 Status: Orderedgabapentin 300 mg oral capsule See Instructions, Take one capsul in the morning and two capsules at bedtime, # 90 capsule, Refills 0, Tot. Refills 0, Maintenance, 12/19/20 9:27:00 EDT, Instructions Replace Required Details, Route toPharmacy Electronically, [facility]... Start Date: 12/19/20 Status: [...] 12/19/20 9:27:00 EDT, Route to Pharmacy Electronically, [facility] [id number],Partial fill upon patient request if the prescrip... Start Date: 12/19/20 Status: OrderedSpiriva Respimat 1.25 mcg/inh inhalation aerosol 2 puffs, Inhalation, Daily, # 4 Gm, 5 Refills, [facility], 163, cm, 01/31/21 8:38:00 EDT, Height, 105.6, kg, 12/15/20 3:15:00 EDT, Dry Weight Start Date: 04/22/21 Status: OrderedTrileptal 300 mg oral tablet 600 mg, 2, tablet, By Mouth, 2 times a day, # 120 tablet, Refills 0, Tot. Refills 0, Maintenance, 12/19/20 9:27:00 EDT, Route to Pharmacy Electronically, [facility] [id number],Partial fill upon patient request if the prescrip... [...]
--- OUTSIDE RECORDS SUMMARY | 2022-04-24 21:11 | XMS_ITS | Continuity of Care Document ---
:1960 Author Organization [facility] Address [address] [place] [address]- Care Team Providers Name Role Phone Francesco SAMANIEGO, Samara Eid Primary Care Physician Encounter [facility] Date(s): 04/29/19 - 05/29/[address] [address]- [facility] Attending Physician: Not on Staff, Attending MD Admitting Physician: Not on Staff, Admitting MD Referring Physician: Not on Staff, Referring MD Allergies, Adverse Reactions, Alerts Substance Reaction Severity Status NKA Active Immunizations Given and Recorded Vaccine Date Status Refusal Reason Influenza Virus Vaccine (oldterm) 03/15/19 Recorded tetanus/diphtheria/pertussis, acel(Tdap) 01/05/18 Given influenza virus vaccine, inactivated 06/23/17 Given pneumococcal 23-valent vaccine 06/23/17 Given Medications AutoCPAP 8-20 cm H2O with heated humidification machine [...] MD Carrillo Start Date: 04/28/19 Status: Orderedgabapentin 100 mg oral capsule 100 mg, 1, capsule, By Mouth, 3 times a day, # 90 capsule, Refills 0, Maintenance, 10/28/17 11:36:35EDT Start Date: 10/28/17 Status: Orderedgabapentin 300 mg oral capsule 300 mg, 1, capsule, By Mouth, 3 times a day, # 90 capsule, Refills 0, Tot. Refills 0, Maintenance, 05/11/19 15:29:00 EST, Route to Pharmacy Electronically, [id number], [facility]/pharmacy #[id number], 162, cm, 04/28/19 10:54:02 EST, [facility]... Start Date: 05/11/19 Stop Date: 06/10/19 Status: OrderedhydrOXYzine pamoate 25 mg oral capsule [...] BE TAKEN AT LEAST 24 HOURS APART, [facility] #[id number] Start Date: 01/27/19 Status: Orderedmeloxicam 15 mg oral tablet See Instructions, TAKE 1 TABLET BY MOUTH DAILY. Dispense in bubble form, # 30 tablet, 6 Refills, Soft Stop, 04/28/19 11:54:39 EST, Dispense in bubble form Start Date: 04/28/19 Status: OrderedOXcarbazepine 150 mg oral tablet TAKE [...] Maintenance, 06/24/17 12:32:51, Route to Pharmacy Electronically, [id number], [facility] [address] [facility] Start Date: 06/24/17 Stop Date: 08/08/17 Status: [...]
--- OUTSIDE RECORDS SUMMARY | 2022-04-24 21:11 | XMS_ITS | Continuity of Care Document ---
:1960 Author Organization [facility] Adult Address [address] [place] [address]- Care Team Providers Name Role Phone Francesco SAMANIEGO, Samara Eid Primary Care Physician Encounter [facility] [place] Date(s): 11/08/19 - 12/08/19 [facility] Adult [address] [place] [address]- [facility] Attending Physician: Gissel Vance Admitting Physician: AdmGissel christine Referring Physician: AdmtrGissel Allergies, Adverse Reactions, Alerts Substance Reaction Severity Status NKA Active Immunizations Given and Recorded Vaccine Date Status Refusal Reason Influenza Virus Vaccine (oldterm) 03/15/19 Recorded tetanus/diphtheria/pertussis, acel(Tdap) 01/05/18 Given influenza virus vaccine, inactivated 06/23/17 Given pneumococcal 23-valent vaccine 06/23/17 Given Medications Advair Diskus 250 mcg-50 mcg inhalation powder 1, puffs, Inhalation, 2 times a day, # 1 each, Refills 5, Tot. Refills 5, Maintenance, 11/18/19 16:04:00 EDT, Powder, Route to Pharmacy Electronically, [id number], [facility], 162, cm, 11/08/19 15:32:00 EDT, Height, Dry Weight Start Date: 11/18/19 Stop Date: 05/16/20 Status: OrderedAutoCPAP 8-20 cm H2O with heated [...] 07/04/19 14:11:00 EST, Route to Pharmacy Electronically, [id number], 162, cm, 04/28/19 10:54:00 EST, Height Start [...] BE TAKEN AT LEAST 24 HOURS APART, [facility] #[id number] Start Date: 01/27/19 Status: OrderedMedrol 4 mg oral tablet 1 pack/packet, By Mouth, Once, as directed on package labeling, # 21 tablet, 0 Refills, Soft Stop, 11/08/19 16:28:00 EDT, Tablet, [facility], 162, cm, 11/08/19 15:32:00 EDT, Height Start Date: 11/08/19 Status: Orderedmeloxicam 15 mg oral tablet See Instructions, TAKE 1 TABLET BY MOUTH DAILY. Dispense in bubble form, # 30 tablet, 5 Refills, Soft Stop, 06/07/19 13:00:00 EST, [facility]/pharmacy #[id number], Dispense in bubble form, 162, cm, [...] capsule, 3 Refills, Maintenance, 07/11/19 8:45:00 EST, [id number], 162, cm, 04/28/19 10:54:00 EST, Height Start Date: 07/11/19 Stop Date: 11/08/19 Status: OrderedTrileptal 300 mg oral tablet 300 mg, 1, tablet, By Mouth, 2 times a day, # 90 tablet, Refills 0, Tot. Refills 0, Maintenance, 06/24/17 12:32:51, Route to Pharmacy Electronically, [id number], [facility] Start Date: 06/24/17 Stop Date: 08/08/17 [...]
--- OUTSIDE RECORDS SUMMARY | 2022-04-24 21:11 | XMS_ITS | Continuity of Care Document ---
:1960 Author Organization [facility] Adult Address [address] [place] [address]- Care Team Providers Name Role Phone Samara Maya NP Primary Care Physician Encounter [facility] Date(s): 09/05/21 - 10/05/21 [facility] Adult [address] [place] [phone]- Allergies, Adverse Reactions, Alerts No Known Allergies [...] 09/01/21 Status: Ordereddexamethasone/neomycin/polymyxin B ophthalmic 1 mg-3.5 mg-84268 u/gm ointment 1 application, Eyes, Both, 3 [...] Instructions Replace Required Details, Route toPharmacy Electronically, [facility]... Start Date: 12/19/20 Status: OrderedhydrOXYzine [...] 09/11/21 16:39:00 EDT, Route to Pharmacy Electronically, [facility]/pharmacy #[id number], Partial f... Start Date: 09/11/21 Status: OrderedSpiriva Respimat 1.25 mcg/inh inhalation aerosol 2 puffs, Inhalation, Daily, Duplicate from 04/22/21 remaining refills sent, # 4 Gm, 2 Refills, 07/10/21 10:42:00 [facility], [facility]-, 163, cm, 01/31/21 8:38:00 EDT, Height, 105.6, kg, 12/15/20 3:15:00 EDT, Dry Weight Start Date: 07/10/21 Status: OrderedWixela Inhub 250 mcg-50 mcg inhalation powder 1 puffs, Inhalation, 2 times a day, # 60 Unknown, 5 Refills, 07/10/21 10:42:00 [facility], [facility]-, 30, 1 puffs Inhalation 2 times [...]
--- OUTSIDE RECORDS SUMMARY | 2022-04-24 21:11 | XMS_ITS | Continuity of Care Document ---
:1960 Author Organization [facility] Adult Address [address] [place] [address]- Care Team Providers Name Role Phone Francesco SAMANIEGO, Samara Eid Primary Care Physician Encounter [facility] Date(s): 02/26/21 - 06/26/21 [facility] Adult [address] [place] [phone]- Attending Physician: Not on Staff, Attending MD [...] 0 Refills, Maintenance, 01/16/21 16:31:00 EDT, Gel, [facility] [place], [place] - [id number], Partial fill upon... Start Date: 01/16/21 Stop Date: 01/30/21 Status: Orderedduloxetine 60 mg oral enteric coated capsule 1 capsule = 60 mg, By Mouth, Daily at bedtime, # 30 capsule, 0 Refills, Maintenance, 12/19/20 9:26:00 EDT, Capsule, [facility] [id number], Partial fill upon patient request if the prescription is for a schedule II opioid drug.... Start Date: 12/19/20 Status: Orderedgabapentin 300 mg oral capsule See Instructions, Take one capsul in the morning and two capsules at bedtime, # 90 capsule, Refills 0, Tot. Refills 0, Maintenance, 12/19/20 9:27:00 EDT, Instructions Replace Required Details, Route toPharmacy Electronically, [facility]... Start Date: 12/19/20 Status: OrderedhydrOXYzine [...] 12/19/20 9:27:00 EDT, Route to Pharmacy Electronically, [facility] [phone],Partial fill upon patient request if the prescrip... Start Date: 12/19/20 Status: OrderedSpiriva Respimat 1.25 mcg/inh inhalation aerosol 2 puffs, Inhalation, Daily, # 4 Gm, 5 Refills, [facility], 163, cm, 01/31/21 8:38:00 EDT, Height, 105.6, kg, 12/15/20 3:15:00 EDT, Dry Weight Start Date: 04/22/21 Status: OrderedTrileptal 300 mg oral tablet 600 mg, 2, tablet, By Mouth, 2 times a day, # 120 tablet, Refills 0, Tot. Refills 0, Maintenance, 12/19/20 9:27:00 EDT, Route to Pharmacy Electronically, [facility] [id number],Partial fill upon patient request if the prescrip... [...]
--- OUTSIDE RECORDS SUMMARY | 2022-04-24 21:11 | XMS_ITS | Continuity of Care Document ---
:1960 Author Organization [facility] Adult Address [address] [place] [address]- Care Team Providers Name Role Phone Samara Maya NP Primary Care Physician [place] [facility] [place] 10[place]21 [facility] Adult [address] [place] [address]- Attending Physician: Not on Staff, Attending MD [...] 09/01/21 Status: Ordereddexamethasone/neomycin/polymyxin B ophthalmic 1 mg-3.5 mg-21289 u/gm ointment 1 application, Eyes, Both, 3 [...] Instructions Replace Required Details, Route toPharmacy Electronically, [facility]... Start Date: 12/19/20 Status: [...] 09/11/21 16:39:00 EDT, Route to Pharmacy Electronically, [facility]/pharmacy #6, Partial f... Start Date: 09/11/21 Status: OrderedSpiriva Respimat 1.25 mcg/inh inhalation aerosol 2 puffs, Inhalation, Daily, Duplicate from 04/22/21 remaining refills sent, # 4 Gm, 2 Refills, 07/10/21 10:42:00 EST, [facility]-, 163, cm, 01/31/21 8:38:00 EDT, Height, 105.6, kg, 12/15/20 3:15:00 EDT, Dry Weight Start Date: 07/10/21 Status: OrderedWixela Inhub 250 mcg-50 mcg inhalation powder 1 puffs, Inhalation, 2 times a day, # 60 Unknown, 5 Refills, 07/10/21 10:42:00 [facility], [facility]-, 30, 1 puffs Inhalation 2 times a [...]
--- OUTSIDE RECORDS SUMMARY | 2022-04-24 21:11 | XMS_ITS | Continuity of Care Document ---
:1960 Author Organization [facility] Adult Address [address] [place] [address]- Care Team Providers Name Role Phone Francesco SAMANIEGO, Samara Eid Primary Care Physician [place] [facility] [place] 03/05/21 - 04/04/21 [facility] Adult [address] [place] [address]- Allergies, Adverse Reactions, Alerts Substance Reaction Severity [...] Maintenance, 01/16/21 16:31:00 EDT, Gel, [facility] [place], [place] - [id number], Partial fill upon... Start Date: 01/16/21 Stop Date: 01/30/21 Status: Orderedduloxetine 60 mg oral enteric coated capsule 1 capsule = 60 mg, By Mouth, Daily at bedtime, # 30 capsule, 0 Refills, Maintenance, 12/19/20 9:26:00 EDT, Capsule, [facility] [id number], Partial fill upon patient request if the prescription is for a schedule II opioid drug.... Start Date: 12/19/20 Status: Orderedgabapentin 300 mg oral capsule See Instructions, Take one capsul in the morning and two capsules at bedtime, # 90 capsule, Refills 0, Tot. Refills 0, Maintenance, 12/19/20 9:27:00 EDT, Instructions Replace Required Details, Route toPharmacy Electronically, [facility]... Start Date: 12/19/20 Status: OrderedhydrOXYzine [...] 12/19/20 9:27:00 EDT, Route to Pharmacy Electronically, [facility] [phone],Partial fill upon patient request if the prescrip... Start Date: 12/19/20 Status: OrderedSpiriva Respimat 1.25 mcg/inh inhalation aerosol INHALE 2 PUFFS BY MOUTH INTO THE lungs DAILY Start Date: 12/15/20 Status: OrderedTrileptal 300 mg oral tablet 600 mg, 2, tablet, By Mouth, 2 times a day, # 120 tablet, Refills 0, Tot. Refills 0, Maintenance, 12/19/20 9:27:00 EDT, Route to Pharmacy Electronically, [facility] [id number],Partial fill upon patient request if the prescrip... Start Date: 12/19/20 Status: OrderedWixela Inhub 250 mcg-50 mcg inhalation powder 1 puffs, Inhalation, 2 times a day, # 60 Unknown, 3 Refills, [facility], 30, INHALE 1 PUFF BY MOUTH [...]
--- OUTSIDE RECORDS SUMMARY | 2022-04-24 21:11 | XMS_ITS | Continuity of Care Document ---
:1960 Author Organization [facility] Address [address] [place] [phone]- Care Team Providers Name Role Phone Francesco SAMANIEGO, Samara Eid Primary Care Physician En[place] [facility] [place] Date(s): 08/10/19 - 08/10/[address] [address]- [facility] Encounter Diagnosis Left ankle pain (Final) - 08/10/19 Discharge Disposition: A-D/C Home Attending Physician: Cara Marsh MD Admitting Physician: Cara Marsh MD Referring Physician: Not on Staff, Referring [...] 10:04:00 EST, Powder, Route to Pharmacy Electronically, [id number], [facility]/pharmacy #[id number], 162, cm, 04/28/19 10:54:00 EST, Height,... [...] 07/04/19 14:11:00 EST, Route to Pharmacy Electronically, [facility] STORE [id number], 162, cm, 04/28/19 10:54:00 EST, Height Start [...] BE TAKEN AT LEAST 24 HOURS APART, [facility] #[id number] Start Date: 01/27/19 Status: Orderedmeloxicam 15 mg oral tablet See Instructions, TAKE 1 TABLET BY MOUTH DAILY. Dispense in bubble form, # 30 tablet, 5 Refills, Soft Stop, 06/07/19 13:00:00 EST, [facility]/pharmacy #[id number], Dispense in bubble form, 162, cm, [...] capsule, 3 Refills, Maintenance, 07/11/19 8:45:00 EST, [id number], 162, cm, 04/28/19 10:54:00 EST, Height Start Date: 07/11/19 Stop Date: 11/08/19 Status: OrderedTrileptal 300 mg oral tablet 300 mg, 1, tablet, By Mouth, 2 times a day, # 90 tablet, Refills 0, Tot. Refills 0, Maintenance, 06/24/17 12:32:51, Route to Pharmacy Electronically, [id number], [facility] Start Date: 06/24/17 Stop Date: 08/08/17 [...] Restless leg syndrome(Confirmed) Active Sleepwalking disorder(Confirmed) Active Results Radiology Reports Exam Date Time Procedure Performing Provider Status 08/10/19 6:42 PM Tibia/Fibula 2 Views Left Kelsy Echols; Au th (Verified) Notes:(Tibia/Fibula 2 Views Left) Reason For Exam: with Pain;TraumaRESULT: Tibia/Fibula 2 Views Left Tibia/Fibula 2 Views Left Reason: Trauma; with Pain; Clinical Question(s): Fracture; Hx of Present Illness: pt reports complications with arthritis, injured L ankle 2mo ago and then twisted it again today and is c o pain to area. COMPARISON: None. FINDINGS: No fractures or bone lesions. Visualized joints are normal. Normal soft tissues. IMPRESSION: No fracture. WSN: [id number] Ordering Physician: Teresa Yang Dictated By: Levi Orozco MD Dictated Date/Time: 08/10/19 6:43 pm Reviewed By: Levi Orozco MD Signed By: Levi Orozco MD Signed Date/Time: 08/10/19 6:43 pm Transcribed By: BILL Transcribed Date/Time: 08/10/19 6:43 pm Vital Signs Most recent to oldest [Reference Range]: 1 2 Oxygen Saturation [94-100 %] 97 % 100 % (08/10/19 5:29 PM) (08/10/19 5:12 PM) Pulse Rate [55-90 bpm] 77 bpm 95 bpm (08/10/19:29 PM) *H* (08/10/19 5:12 PM) Blood Pressure [90-138/55-84 mm Hg] 141/77 mm Hg *H* (08/10/19:29 PM) Respiratory Rate [16-30 br/min] 18 br/min 20 br/mi n (08/10/19 5:29 PM) (08/10/19 5:12 PM) Temperature [96.8-100.4 DegF] 98.0 DegF (08/10/19:29 PM) Mode of Delivery (Oxygen) Room air Room air (08/10/19 5:29 PM) (08/10/19 5:12 PM) Blood pressure sites Arm, left (08/10/19 5:29 PM) Temperature Route Oral (08/10/19 5:29 PM) Social History Social History Type Response Smoking Status Never smoker entered on: 10/28/17 Sex Female
--- OUTSIDE RECORDS SUMMARY | 2022-04-24 21:12 | XMS_ITS | Continuity of Care Document ---
:1960 Author Organization [facility] Address Unavailable , Care Team Providers Name Role Phone Francesco SAMANIEGO, Samara Eid Primary Care Physician [place] [facility] [place] 09/25/21 [facility] Attending Physician: Ava Centeno MD Admitting Physician: Ava Centeno MD Referring Physician: Samara Maya NP Allergies, [...] 09/01/21 Status: Ordereddexamethasone/neomycin/polymyxin B ophthalmic 1 mg-3.5 mg-05762 u/gm ointment 1 application, Eyes, Both, 3 [...] Instructions Replace Required Details, Route toPharmacy Electronically, [facility]... Start Date: 12/19/20 Status: [...] 09/11/21 16:39:00 EDT, Route to Pharmacy Electronically, [facility]/pharmacy #[id number], Partial f... Start Date: 09/11/21 Status: OrderedSpiriva Respimat 1.25 mcg/inh inhalation aerosol 2 puffs, Inhalation, Daily, Duplicate from 04/22/21 remaining refills sent, # 4 Gm, 2 Refills, 07/10/21 10:42:00 EST, [facility]-, 163, cm, 01/31/21 8:38:00 EDT, Height, 105.6, kg, 12/15/20 3:15:00 EDT, Dry Weight Start Date: 07/10/21 Status: OrderedWixela Inhub 250 mcg-50 mcg inhalation powder 1 puffs, Inhalation, 2 times a day, # 60 Unknown, 5 Refills, 07/10/21 10:42:00 [facility], [facility]-, 30, 1 puffs Inhalation 2 times a [...]
--- OUTSIDE RECORDS SUMMARY | 2022-04-24 21:12 | XMS_ITS | Continuity of Care Document ---
:1960 Author Organization [facility] Adult Address [address] [place] [address]- Care Team Providers Name Role Phone Francesco CLINICAL SERVICES MANAGER, Samara Eid Primary Care Physician En[place] [facility] [place] Date(s): 12/26/19 - 01/25/20 [facility] Adult [address] [place] [phone]- [facility] Allergies, Adverse Reactions, Alerts Substance Reaction Severity [...] each, Refills 5, Tot. Refills 5, Maintenance, 12/26/19 13:11:00 EDT, Powder, Route to Pharmacy Electronically, [id number], [facility], 162, cm, 11/08/19 15:32:00 EDT, Height, Dry Weight Start Date: 12/26/19 Stop Date: 06/23/20 Status: OrderedAutoCPAP 8-20 cm H2O with heated [...] 07/04/19 14:11:00 EST, Route to Pharmacy Electronically, [id number], 162, cm, 04/28/19 10:54:00 EST, Height Start [...] BE TAKEN AT LEAST 24 HOURS APART, [facility] #[id number] Start Date: 01/27/19 Status: OrderedMedrol 4 mg oral tablet 1 pack/packet, By Mouth, Once, as directed on package labeling, # 21 tablet, 0 Refills, Soft Stop, 11/08/19 16:28:00 EDT, Tablet, [facility], 162, cm, 11/08/19 15:32:00 EDT, Height Start Date: 11/08/19 Status: Orderedmeloxicam 15 mg oral tablet See Instructions, TAKE 1 TABLET BY MOUTH DAILY. Dispense in bubble form, # 30 tablet, 5 Refills, Soft Stop, 06/07/19 13:00:00 EST, [facility]/pharmacy #[id number], Dispense in bubble form, 162, [...] capsule, 5 Refills, Maintenance, 01/18/20 12:09:00 EDT, [facility], 162, cm, 11/08/19 15:32:00 EDT, Height Start Date: 01/18/20 Stop Date: 07/16/20 Status: OrderedTrileptal 300 mg oral tablet 300 mg, 1, tablet, By Mouth, 2 times a day, # 90 tablet, Refills 0, Tot. Refills 0, Maintenance, 06/24/17 12:32:51, Route to Pharmacy Electronically, [id number], [facility] - [address] [place] [address] Start Date: 06/24/17 Stop Date: 08/08/17 Status: [...]
--- OUTSIDE RECORDS SUMMARY | 2022-04-24 21:12 | XMS_ITS | Continuity of Care Document ---
:1960 Author Organization [facility] Address [address] [place] [address]- Care Team Providers Name Role Phone Francesco SAMANIEGO, Samara Eid Primary Care Physician [place] [facility] [place] [id number] Date(s): 12/14/20 - 12/15/[address] [address]- Encounter Diagnosis Depression (Final) - 12/14/20 Ingestion of toxin (Final) - 12/14/20 Suicidal ideation (Final) - 12/14/20 Discharge Disposition: A-D/C Home Attending Physician: Kingsley Dumont MD Admitting Physician: Kingsley Dumont MD Referring Physician: Not on Staff, Referring MD Allergies, Adverse Reactions, Alerts Substance Reaction Severity Status NKA Active Immunizations Given and Recorded Vaccine Date Status Refusal Reason Influenza Virus Vaccine (oldterm) 03/15/19 Recorded tetanus/diphtheria/pertussis, acel(Tdap) 01/05/18 Given influenza virus vaccine, inactivated 06/23/17 Given pneumococcal 23-valent vaccine 06/23/17 Given Medications DULoxetine 40 mg oral delayed release capsule 1 capsule = 40 mg, By Mouth, Daily, do not crush or chew, # 30 capsule, 0 Refills, Maintenance, 12/15/20 14:35:00 EDT, CR Capsule, Partial fill upon patient request if the prescription is for a schedule II opioid drug. Start Date: 12/15/20 Status: Orderedgabapentin 300 mg oral capsule 300 mg, Capsule, By Mouth, 12/14/20 21:00:00 EDT Start Date: 12/14/20 Stop Date: 12/14/20 Status: Completedgabapentin 300 mg oral capsule TAKE ONE CAPSULE BY MOUTH EVERY MORNING AND TAKE TWO CAPSULES BY MOUTH AT BEDTIME Start Date: 12/15/20 Status: OrderedhydrOXYzine pamoate 25 mg oral capsule Take 1 capsule by mouth three times a day as needed for sleep and anxiety Start Date: 12/15/20 Status: Orderedmeloxicam 15 mg oral tablet TAKE ONE TABLET BY MOUTH DAILY Start Date: 12/15/20 Status: Orderednaltrexone 50 mg oral tablet Take 1 tablet by mouth once a day Start Date: 12/15/20 Status: OrderedOXcarbazepine 300 mg oral tablet Take 1 tablet every morning and take 2 tablets at bedtime. Start Date: 12/15/20 Status: OrderedrisperiDONE 1 mg oral tablet TAKE ONE TABLET BY MOUTH DAILY AT BEDTIME Start Date: 12/15/20 Status: OrderedSpiriva Respimat 1.25 mcg/inh inhalation aerosol INHALE 2 PUFFS BY MOUTH INTO THE lungs DAILY Start Date: 12/15/20 Status: OrderedWixela Inhub 250 mcg-50 mcg inhalation [...] Active Vital Signs Most recent to oldest 1 2 3 [Reference Range]: Height 163 cm 163 cm 163 cm (12/15/20 12:44 AM) (12/14/20 5:26 PM) (12/14/20 3:40 AM) Weight 109 kg 109 kg 109 kg (12/15/20 12:44 AM) (12/14/20 5:26 PM) (12/14/20 3:40 AM) Oxygen Saturation [94-100 97 % 97 % 96 % %] (12/15/20 12:44 AM) (12/14/20 10:31 PM) (12/14/20 5:2 6 PM) Pulse Rate [55-90 bpm] 60 bpm 64 bpm 60 bpm (12/15/20 12:44 AM) (12/14/20 10:31 PM) (12/14/20 5:2 6 PM) Body Mass Index 41.03 41.03 [18.5-24.99] *>HHI* *>HHI* (12/15/20 12:44 AM) (12/14/20 5:26 PM) Blood Pressure 108/67 mm Hg 120/57 mm Hg 119/69 mm Hg [90-138/55-84 mm Hg] (12/15/20 12:44 AM) (12/14/20 10:31 PM) ( 1 5:26 PM) Respiratory Rate [16-30 16 br/min 16 br/min 16 br/mi n br/min] (12/15/20 12:44 AM) (12/14/20 10:31 PM) (12/14/20 8:1 1 PM) Temperature [96.8-100.4 97.7 DegF 98.1 DegF 97.8 Deg F DegF] (12/15/20 12:44 AM) (12/14/20 5:26 PM) (12/14/20 10:0 0 AM) Mode of Delivery (Oxygen) Room air Room air Room a ir (12/15/20 12:44 AM) (12/14/20 10:31 PM) (12/14/20 5:2 6 PM) Blood pressure sites Arm, right Arm, right Arm, right (12/14/20 5:26 PM) (12/14/20 10:00 AM) (12/14/20 6:00 AM) Temperature Route Oral Oral Oral (12/15/20 12:44 AM) (12/14/20 5:26 PM) (12/14/20 10:0 0 AM) Dry Weight 109 kg 109 kg 109 kg (12/15/20 12:44 AM) (12/14/20 5:26 PM) (12/14/20 3:40 AM) Weight Obtained Via Patient/family stated (12/14/20 3:40 AM) Social History Social History Type Response Smoking Status Never smoker entered on: 10/28/17 Sex Female
--- OUTSIDE RECORDS SUMMARY | 2022-04-24 21:12 | XMS_ITS | Continuity of Care Document ---
:1960 Author Organization [facility] Adult Address [address] [place] [address]- Care Team Providers Name Role Phone Francesco SAMANIEGO, Samara Eid Primary Care Physician Encounter [facility] Date(s): 08/14/21 - 09/13/21 [facility] Adult [address] [place] [address]- Allergies, Adverse Reactions, Alerts No Known Allergies [...] 09/01/21 Status: Ordereddexamethasone/neomycin/polymyxin B ophthalmic 1 mg-3.5 mg-10126 u/gm ointment 1 application, Eyes, Both, 3 [...] Instructions Replace Required Details, Route toPharmacy Electronically, [facility]... Start Date: 12/19/20 Status: [...] 09/11/21 16:39:00 EDT, Route to Pharmacy Electronically, [facility]/pharmacy #2, Partial f... Start Date: 09/11/21 Status: OrderedSpiriva Respimat 1.25 mcg/inh inhalation aerosol 2 puffs, Inhalation, Daily, Duplicate from 04/22/21 remaining refills sent, # 4 Gm, 2 Refills, 07/10/21 10:42:00 EST, [facility] 163, cm, 01/31/21 8:38:00 EDT, Height, 105.6, kg, 12/15/20 3:15:00 EDT, Dry Weight Start Date: 07/10/21 Status: OrderedWixela Inhub 250 mcg-50 mcg inhalation powder 1 puffs, Inhalation, 2 times a day, # 60 Unknown, 5 Refills, 07/10/21 10:42:00 [facility], [facility]-[id number], 30, 1 puffs Inhalation 2 times a [...]
--- OUTSIDE RECORDS SUMMARY | 2022-04-24 21:12 | XMS_ITS | Continuity of Care Document ---
:1960 Author Organization [facility] Adult Address [address] [place] [address]- Care Team Providers Name Role Phone Francesco HEAD BANDER AND LINER OPERATOR, Samara Eid Primary Care Physician Encounter [facility] [place] Date(s): 12/13/20 - 01/16/21 [facility] Adult [address] [place] [phone]- Attending Physician: Yumiko Herndon MD Allergies, Adverse [...] 0 Refills, Maintenance, 01/16/21 16:31:00 EDT, Gel, [facility] [place], [place] - [id number], Partial fill upon... Start Date: 01/16/21 Stop Date: 01/30/21 Status: Orderedduloxetine 60 mg oral enteric coated capsule 1 capsule = 60 mg, By Mouth, Daily at bedtime, # 30 capsule, 0 Refills, Maintenance, 12/19/20 9:26:00 EDT, Capsule, [facility] [id number], Partial fill upon patient request if the prescription is for a schedule II opioid drug.... Start Date: 12/19/20 Status: Orderedgabapentin 300 mg oral capsule See Instructions, Take one capsul in the morning and two capsules at bedtime, # 90 capsule, Refills 0, Tot. Refills 0, Maintenance, 12/19/20 9:27:00 EDT, Instructions Replace Required Details, Route toPharmacy Electronically, [facility]... Start Date: 12/19/20 Status: OrderedhydrOXYzine [...] 12/19/20 9:27:00 EDT, Route to Pharmacy Electronically, [facility] [id number],Partial fill upon patient request if the prescrip... Start Date: 12/19/20 Status: OrderedSpiriva Respimat 1.25 mcg/inh inhalation aerosol INHALE 2 PUFFS BY MOUTH INTO THE lungs DAILY Start Date: 12/15/20 Status: OrderedTrileptal 300 mg oral tablet 600 mg, 2, tablet, By Mouth, 2 times a day, # 120 tablet, Refills 0, Tot. Refills 0, Maintenance, 12/19/20 9:27:00 EDT, Route to Pharmacy Electronically, [facility] [place], [place] - [phone],Partial fill upon patient request if the prescrip... [...] oldest [Reference Range]: 1 Height 163 cm (12/17/20 11:46 AM) Social History Social History Type Response Smoking Status Never smoker entered on: 10/28/17 Sex
--- OUTSIDE RECORDS SUMMARY | 2022-04-24 21:12 | XMS_ITS | Continuity of Care Document ---
:1960 Author Organization [facility] Address Unavailable , Care Team Providers Name Role Phone Francesco SAMANIEGO, Samara Eid Primary Care Physician En[place] [facility] [place] Date(s): 07/24/21 - 07/31/21 [facility] Attending Physician: Ava Centeno MD Admitting [...] 0 Refills, Maintenance, 01/16/21 16:31:00 EDT, Gel, [facility] [place], [place] - [id number], Partial fill upon... Start Date: 01/16/21 Stop Date: 01/30/21 Status: Orderedduloxetine 60 mg oral enteric coated capsule 1 capsule = 60 mg, By Mouth, Daily at bedtime, # 30 capsule, 0 Refills, Maintenance, 12/19/20 9:26:00 EDT, Capsule, [facility] [id number], Partial fill upon patient request if the prescription is for a schedule II opioid drug.... Start Date: 12/19/20 Status: Orderedgabapentin 300 mg oral capsule See Instructions, Take one capsul in the morning and two capsules at bedtime, # 90 capsule, Refills 0, Tot. Refills 0, Maintenance, 12/19/20 9:27:00 EDT, Instructions Replace Required Details, Route toPharmacy Electronically, [facility]... Start Date: 12/19/20 Status: OrderedhydrOXYzine [...] 12/19/20 9:27:00 EDT, Route to Pharmacy Electronically, [facility] [id number],Partial fill upon patient request if the prescrip... Start Date: 12/19/20 Status: OrderedSpiriva Respimat 1.25 mcg/inh inhalation aerosol 2 puffs, Inhalation, Daily, Duplicate from 04/22/21 remaining refills sent, # 4 Gm, 2 Refills, 07/10/21 10:42:00 EST, [facility]-[id number], 163, cm, 01/31/21 8:38:00 EDT, Height, 105.6, kg, 12/15/20 3:15:00 EDT, Dry Weight Start Date: 07/10/21 Status: OrderedTrileptal 300 mg oral tablet 600 mg, 2, tablet, By Mouth, 2 times a day, # 120 tablet, Refills 0, Tot. Refills 0, Maintenance, 12/19/20 9:27:00 EDT, Route to Pharmacy Electronically, [facility] - [place], [place] - [id number],Partial fill upon patient request if the prescrip... Start Date: 12/19/20 Status: OrderedWixela Inhub 250 mcg-50 mcg inhalation powder 1 puffs, Inhalation, 2 times a day, # 60 Unknown, 5 Refills, 07/10/21 10:42:00 [facility], [facility]-, 30, 1 puffs Inhalation 2 times [...] recent to oldest [Reference Range]: 1 Height 165 cm (07/24/21 11:03 AM) Weight 110 kg (07/24/21 11:03 AM) Oxygen Saturation [94-100 %] 94 % (07/24/21 11:03 AM) Pulse Rate [55-90 bpm] 62 bpm (07/24/21 11:03 AM) Body Mass Index [18.5-24.99] 40.4 *>HHI* (07/24/21 11:03 AM) Blood Pressure [90-138/55-84 mm Hg] 122/82 mm Hg (07/24/21 11:03 AM) Respiratory Rate [16-30 br/min] 16 br/min (07/24/21 11:03 AM) Blood pressure sites Arm, left (2/16/22 11:03 AM) Temperature Route Oral (07/24/21 11:03 AM) Weight Obtained Via Patient/family stated (07/24/21 11:03 AM) Social History Social History Type Response Smoking Status Never smoker entered on: 10/28/17 Sex
--- OUTSIDE RECORDS SUMMARY | 2022-04-24 21:12 | XMS_ITS | Continuity of Care Document ---
:[address] [facility] Adult Address [address] [place] [address]- Care Team Providers Name Role Phone Francesco SAMANIEGO, Samara Eid Primary Care Physician Encounter [facility] Date(s): 09/13/19 - 09/23/[address] [facility] [address] [place] [address]- [facility] Attending Physician: Gissel Vance Admitting Physician: AdmGissel [...] 10:52:00 EDT, Powder, Route to Pharmacy Electronically, [id number]_[id number], [facility]-, 162, cm, 04/28/19 10:54:00 EST, Height, [...] 07/04/19 14:11:00 EST, Route to Pharmacy Electronically, [facility] STORE [id number], 162, cm, 04/28/19 10:54:00 EST, Height Start [...] BE TAKEN AT LEAST 24 HOURS APART, [facility] #[id number] Start Date: 01/27/19 Status: Orderedmeloxicam 15 mg oral tablet See Instructions, TAKE 1 TABLET BY MOUTH DAILY. Dispense in bubble form, # 30 tablet, 5 Refills, Soft Stop, 06/07/19 13:00:00 EST, [facility]/pharmacy #[id number], Dispense in bubble form, 162, [...] capsule, 3 Refills, Maintenance, 07/11/19 8:45:00 EST, [facility]-[id number], 162, cm, 04/28/19 10:54:00 EST, Height Start Date: 07/11/19 Stop Date: 11/08/19 Status: OrderedTrileptal 300 mg oral tablet 300 mg, 1, tablet, By Mouth, 2 times a day, # 90 tablet, Refills 0, Tot. Refills 0, Maintenance, 06/24/17 12:32:51, Route to Pharmacy Electronically, [id number], [id number] Start Date: 06/24/17 Stop Date: [...]
--- OUTSIDE RECORDS SUMMARY | 2022-04-24 21:12 | XMS_ITS | Continuity of Care Document ---
:1960 Author Organization [facility] Adult Address [address] [place] [address]- Care Team Providers Name Role Phone Francesco SAMANIEGO, Samara Eid Primary Care Physician [facility]counter [facility] Date(s): 12/18/20 - 01/17/21 [facility] [address] [place] [address]- Allergies, Adverse Reactions, Alerts Substance Reaction Severity [...] 0 Refills, Maintenance, 01/16/21 16:31:00 EDT, Gel, [facility] [place], [place] - [id number], Partial fill upon... Start Date: 01/16/21 Stop Date: 01/30/21 Status: Orderedduloxetine 60 mg oral enteric coated capsule 1 capsule = 60 mg, By Mouth, Daily at bedtime, # 30 capsule, 0 Refills, Maintenance, 12/19/20 9:26:00 EDT, Capsule, [facility] [id number], Partial fill upon patient request if the [...] 12/19/20 9:27:00 EDT, Route to Pharmacy Electronically, [facility] [id number],Partial fill upon patient request if the prescrip... Start Date: 12/19/20 Status: OrderedSpiriva Respimat 1.25 mcg/inh inhalation aerosol INHALE 2 PUFFS BY MOUTH INTO THE lungs DAILY Start Date: 12/15/20 Status: OrderedTrileptal 300 mg oral tablet 600 mg, 2, tablet, By Mouth, 2 times a day, # 120 tablet, Refills 0, Tot. Refills 0, Maintenance, 12/19/20 9:27:00 EDT, Route to Pharmacy Electronically, [facility] - [place], [place] - [id number],Partial fill upon patient request if the prescrip... [...]
--- OUTSIDE RECORDS SUMMARY | 2022-04-24 21:12 | XMS_ITS | Continuity of Care Document ---
:1960 Author Organization [facility] Adult Address [address] [place] [address]- Care Team Providers Name Role Phone Francesco SAMAINEGO, Samara Eid Primary Care Physician Encounter [facility] Date(s): 02/28/20 - 03/29/20 [facility] [address] [place] [phone]- [place] Allergies, Adverse Reactions, Alerts Substance Reaction [...] 16:21:00 EST, Powder, Route to Pharmacy Electronically, [id number]_[id number], [facility], 162, cm, 02/23/20 14:38:00 EDT, Height, [...] 07/04/19 14:11:00 EST, Route to Pharmacy Electronically, [facility] [id number], 162, cm, 04/28/19 10:54:00 EST, Height Start [...] BE TAKEN AT LEAST 24 HOURS APART, [facility] #[id number] Start Date: 01/27/19 Status: Orderedmeloxicam 15 mg oral tablet See Instructions, TAKE 1 TABLET BY MOUTH DAILY. Dispense in bubble form, # 30 tablet, 5 Refills, Soft Stop, 02/28/20 11:54:00 EDT, [place], [place] - [id number], Dispense in bubble form, 162, cm, 02/23/20 [...] 03/19/20 12:37:00 EDT, Aerosol, [facility] - [place], [place] - [id number], 162, cm, 03/01/20 8:47:00 EDT, Height Start Date: 03/19/20 Status: OrderedTrileptal 300 mg oral tablet 300 mg, 1, tablet, By Mouth, 2 times a day, # 90 tablet, Refills 0, Tot. Refills 0, Maintenance, 06/24/17 12:32:51, Route to Pharmacy Electronically, [id number], [facility] Start Date: 06/24/17 Stop Date: [...]
--- OUTSIDE RECORDS SUMMARY | 2022-04-24 21:12 | XMS_ITS | Continuity of Care Document ---
:1960 Author Organization [facility] Address [address] [place] [address]- Care Team Providers Name Role Phone Francesco SAMANIEGO, Samara Eid Primary Care Physician En[place] [facility] Date(s): 02/26/21 - 02/26/[address] [address]- Encounter Diagnosis closed left toe fracture (Final) - 02/26/21 Discharge Disposition: A-D/C Home Attending Physician: Devin Li MD Admitting Physician: Devin Li MD Referring Physician: Not on Staff, Referring [...] Maintenance, 01/16/21 16:31:00 EDT, Gel, [facility] [place], [place] - [id number], Partial fill upon... Start Date: 01/16/21 Stop Date: 01/30/21 Status: Orderedduloxetine 60 mg oral enteric coated capsule 1 capsule = 60 mg, By Mouth, Daily at bedtime, # 30 capsule, 0 Refills, Maintenance, 12/19/20 9:26:00 EDT, Capsule, [facility], [facility] [phone], Partial fill upon patient request if the prescription is for a schedule II opioid drug.... Start Date: 12/19/20 Status: Orderedgabapentin 300 mg oral capsule See Instructions, Take one capsul in the morning and two capsules at bedtime, # 90 capsule, Refills 0, Tot. Refills 0, Maintenance, 12/19/20 9:27:00 EDT, Instructions Replace Required Details, Route toPharmacy Electronically, [facility]... Start Date: 12/19/20 Status: OrderedhydrOXYzine pamoate [...] EDT, Route to Pharmacy Electronically, [facility] [phone],Partial fill upon patient request if the prescrip... Start Date: 12/19/20 Status: OrderedSpiriva Respimat 1.25 mcg/inh inhalation aerosol INHALE 2 PUFFS BY MOUTH INTO THE lungs DAILY Start Date: 12/15/20 Status: OrderedTrileptal 300 mg oral tablet 600 mg, 2, tablet, By Mouth, 2 times a day, # 120 tablet, Refills 0, Tot. Refills 0, Maintenance, 12/19/20 9:27:00 EDT, Route to Pharmacy Electronically, [facility] [phone],Partial fill upon patient request if the prescrip... [...] Exam Date Time Procedure Performing Provider Status 02/26/21 7:38 PM Foot Min 3 Views Left Cori Caro; Auth (V erified) Notes:(Foot Min 3 Views Left) Reason For Exam: with Pain;TraumaRESULT: Foot Min 3 Views Left Ankle Min 3 Views Left, Foot Min 3 Views Left Hx of Present Illness: Left foot and ankle pain after trip and fall Thursday.; Reason: Trauma;with Pain; Clinical Question(s): Fracture; Special Instructions: This is a protocol film and radiologist should call any findings to the Charge Nurse. COMPARISON: None. FINDINGS: There is an acute minimally displaced fracture of the head of the second metatarsal, with approximately 1.5 mm lateral displacement of the distal fracture fragment. No other acute fracture or dislocation seen in the left foot or ankle. Intact ankle mortise and talar dome. Mild arthritic changes in the ankle joint. Incidentally noted is an os naviculare. Plantar calcaneal spur noted. Mild enthesopathy at the distal Achilles insertion. Mild soft tissue swelling of the forefoot noted. IMPRESSION: An acute minimally displaced fracture of the head of the second metatarsal. Intact left ankle. A [place] message has been communicated via the KeepGo system on 02/26/2021 7:44 PM, Message ID [id number]. WSN: [id number] Ordering Physician: Odalis Castañeda Dictated By: Petra Foley MD Dictated Date/Time: 02/26/21 7:44 pm Reviewed By: Petra Foley MD Signed By: Petra Foley MD Signed Date/Time: 02/26/21 7:44 pm Transcribed By: BILL Transcribed Date/Time: 02/26/21 7:41 pm Exam Date Time Procedure Performing Provider Status 02/26/21 7:38 PM Ankle Min 3 Views Left Cori Caro; Padmini ( Verified) Notes:(Ankle Min 3 Views Left) Reason For Exam: with Pain;TraumaRESULT: Ankle Min 3 Views Left Ankle Min 3 Views Left, Foot Min 3 Views Left Hx of Present Illness: Left foot and ankle pain after trip and fall Thursday.; Reason: Trauma;with Pain; Clinical Question(s): Fracture; Special Instructions: This is a protocol film and radiologist should call any findings to the Charge Nurse. COMPARISON: None. FINDINGS: There is an acute minimally displaced fracture of the head of the second metatarsal, with approximately 1.5 mm lateral displacement of the distal fracture fragment. No other acute fracture or dislocation seen in the left foot or ankle. Intact ankle mortise and talar dome. Mild arthritic changes in the ankle joint. Incidentally noted is an os naviculare. Plantar calcaneal spur noted. Mild enthesopathy at the distal Achilles insertion. Mild soft tissue swelling of the forefoot noted. IMPRESSION: An acute minimally displaced fracture of the head of the second metatarsal. Intact left ankle. A [place] message has been communicated via the KeepGo system on 02/26/2021 7:44 PM, Message ID [id number]. WSN: [id number] Ordering Physician: Odalis Castañeda Dictated By: Petra Foley MD Dictated Date/Time: 02/26/21 7:44 pm Reviewed By: Petra Foley MD Signed By: Petra Foley MD Signed Date/Time: 02/26/21 7:44 pm Transcribed By: BILL Transcribed Date/Time: 02/26/21 7:41 pm Vital Signs Most recent to oldest [Reference Range]: 1 2 Oxygen Saturation [94-100 %] 97 % 97 % (02/26/21 9:50 PM) (02/26/21 7:11 PM) Pulse Rate [55-90 bpm] 57 bpm 88 bpm (02/26/21 9:50 PM) (02/26/21 7:11 PM) Blood Pressure [90-138/55-84 mm Hg] 127/75 mm Hg 132/ 91 mm Hg (02/26/21 9:50 PM) (02/26/21 7:11 PM) Respiratory Rate [16-30 br/min] 18 br/min 20 br/mi n (02/26/21 9:50 PM) (02/26/21 7:11 PM) Temperature [96.8-100.4 DegF] 98.9 DegF 98.9 DegF (02/26/21 9:50 PM) (02/26/21 7:11 PM) Mode of Delivery (Oxygen) Room air Room air (02/26/21 9:50 PM) (02/26/21 7:11 PM) Blood pressure sites Arm, left (02/26/21 7:11 PM) Temperature Route Oral Oral (02/26/21 9:50 PM) (02/26/21 7:11 PM) Social History Social History Type Response Smoking Status Never smoker entered on: 10/28/17 Sex
--- OUTSIDE RECORDS SUMMARY | 2022-04-24 21:12 | XMS_ITS | Continuity of Care Document ---
:1960 Author Organization [facility] Address Unavailable , Care Team Providers Name Role Phone Francesco SAMANIEGO, Samara Eid Primary Care Physician Encounter [facility] [place] Date(s): 08/12/21 - 09/11/21 [facility] Allergies, Adverse Reactions, Alerts No Known [...] 09/01/21 Status: Ordereddexamethasone/neomycin/polymyxin B ophthalmic 1 mg-3.5 mg-32783 u/gm ointment 1 application, Eyes, Both, 3 [...] Instructions Replace Required Details, Route toPharmacy Electronically, [facility]... Start Date: 12/19/20 Status: OrderedhydrOXYzine pamoate [...] 09/11/21 16:39:00 EDT, Route to Pharmacy Electronically, [facility]/pharmacy #5, Partial f... Start Date: 09/11/21 Status: OrderedSpiriva Respimat 1.25 mcg/inh inhalation aerosol 2 puffs, Inhalation, Daily, Duplicate from 04/22/21 remaining refills sent, # 4 Gm, 2 Refills, 07/10/21 10:42:00 EST, [facility]-, 163, cm, 01/31/21 8:38:00 EDT, Height, 105.6, kg, 12/15/20 3:15:00 EDT, Dry Weight Start Date: 07/10/21 Status: OrderedWixela Inhub 250 mcg-50 mcg inhalation powder 1 puffs, Inhalation, 2 times a day, # 60 Unknown, 5 Refills, 07/10/21 10:42:00 EST, [facility]-, 30, 1 puffs Inhalation 2 times [...]
--- OUTSIDE RECORDS SUMMARY | 2022-04-24 21:12 | XMS_ITS | Continuity of Care Document ---
:[address] [facility] Address [address] [place] [address]- Care Team Providers Name Role Phone Samara Maya NP Primary Care Physician Encounter [facility] Date(s): 09/11/21 - 10/11/21 [facility] [address] [place] [address]- Allergies, Adverse Reactions, Alerts No Known Allergies [...] 09/01/21 Status: Ordereddexamethasone/neomycin/polymyxin B ophthalmic 1 mg-3.5 mg-63568 u/gm ointment 1 application, Eyes, Both, 3 [...] Instructions Replace Required Details, Route toPharmacy Electronically, [facility]... Start Date: 12/19/20 Status: [...] 09/11/21 16:39:00 EDT, Route to Pharmacy Electronically, [facility]/pharmacy #[id number], Partial f... Start Date: 09/11/21 Status: OrderedSpiriva Respimat 1.25 mcg/inh inhalation aerosol 2 puffs, Inhalation, Daily, Duplicate from 04/22/21 remaining refills sent, # 4 Gm, 2 Refills, 07/10/21 10:42:[address] [facility]-, 163, cm, 01/31/21 8:38:00 EDT, Height, 105.6, kg, 12/15/20 3:15:00 EDT, Dry Weight Start Date: 07/10/21 Status: OrderedWixela Inhub 250 mcg-50 mcg inhalation powder 1 puffs, Inhalation, 2 times a day, # 60 Unknown, 5 Refills, 07/10/21 10:42:[address] [facility], [facility]-, 30, 1 puffs Inhalation 2 times [...]
--- OUTSIDE RECORDS SUMMARY | 2022-04-24 21:12 | XMS_ITS | Continuity of Care Document ---
:1960 Author Organization [facility] Address [address] [place] [address]- Care Team Providers Name Role Phone Francesco SAMANIEGO, Samara Eid Primary Care Physician Encounter [facility] Date(s): 01/21/21 - 02/20/21 [facility] [address] [place] [phone]- Allergies, Adverse Reactions, Alerts Substance Reaction Severity [...] 0 Refills, Maintenance, 01/16/21 16:31:00 EDT, Gel, [facility]- [place], [place] - [id number], Partial fill upon... Start Date: 01/16/21 Stop Date: 01/30/21 Status: Orderedduloxetine 60 mg oral enteric coated capsule 1 capsule = 60 mg, By Mouth, Daily at bedtime, # 30 capsule, 0 Refills, Maintenance, 12/19/20 9:26:00 EDT, Capsule, [facility] [id number], Partial fill upon patient request if the prescription is for a schedule II opioid drug.... Start Date: 12/19/20 Status: Orderedgabapentin 300 mg oral capsule See Instructions, Take one capsul in the morning and two capsules at bedtime, # 90 capsule, Refills 0, Tot. Refills 0, Maintenance, 12/19/20 9:27:00 EDT, Instructions Replace Required Details, Route toPharmacy Electronically, [facility]... Start Date: 12/19/20 Status: [...] 12/19/20 9:27:00 EDT, Route to Pharmacy Electronically, [facility] [id number],Partial fill upon patient request if the prescrip... Start Date: 12/19/20 Status: OrderedSpiriva Respimat 1.25 mcg/inh inhalation aerosol INHALE 2 PUFFS BY MOUTH INTO THE lungs DAILY Start Date: 12/15/20 Status: OrderedTrileptal 300 mg oral tablet 600 mg, 2, tablet, By Mouth, 2 times a day, # 120 tablet, Refills 0, Tot. Refills 0, Maintenance, 12/19/20 9:27:00 EDT, Route to Pharmacy Electronically, [facility] [phone],Partial fill upon patient request if the prescrip... [...]
--- OUTSIDE RECORDS SUMMARY | 2022-04-24 21:12 | XMS_ITS | Continuity of Care Document ---
:1960 Author Organization [facility] Address [address] [place] [address]- Care Team Providers Name Role Phone Francesco SAMANIEGO, Samara Eid Primary Care Physician Encounter [facility] Date(s): 12/19/20 - 01/18/21 [facility] [address] [place] [phone]- Allergies, Adverse Reactions, Alerts Substance Reaction Severity [...] 0 Refills, Maintenance, 01/16/21 16:31:00 EDT, Gel, [facility]- [place], [place] - [id number], Partial fill upon... Start Date: 01/16/21 Stop Date: 01/30/21 Status: Orderedduloxetine 60 mg oral enteric coated capsule 1 capsule = 60 mg, By Mouth, Daily at bedtime, # 30 capsule, 0 Refills, Maintenance, 12/19/20 9:26:00 EDT, Capsule, [facility] [id number], Partial fill upon patient request if the prescription is for a schedule II opioid drug.... Start Date: 12/19/20 Status: Orderedgabapentin 300 mg oral capsule See Instructions, Take one capsul in the morning and two capsules at bedtime, # 90 capsule, Refills 0, Tot. Refills 0, Maintenance, 12/19/20 9:27:00 EDT, Instructions Replace Required Details, Route toPharmacy Electronically, [facility]... Start Date: 12/19/20 Status: OrderedhydrOXYzine pamoate [...] 12/19/20 9:27:00 EDT, Route to Pharmacy Electronically, [facility] [phone],Partial fill upon patient request if the prescrip... Start Date: 12/19/20 Status: OrderedSpiriva Respimat 1.25 mcg/inh inhalation aerosol INHALE 2 PUFFS BY MOUTH INTO THE lungs DAILY Start Date: 12/15/20 Status: OrderedTrileptal 300 mg oral tablet 600 mg, 2, tablet, By Mouth, 2 times a day, # 120 tablet, Refills 0, Tot. Refills 0, Maintenance, 12/19/20 9:27:00 EDT, Route to Pharmacy Electronically, [facility] [place], [place] - [id number],Partial fill upon patient request if the prescrip... [...]
--- OUTSIDE RECORDS SUMMARY | 2022-04-24 21:12 | XMS_ITS | Continuity of Care Document ---
:1960 Author Organization [facility] Address [address] [place] [address]- Care Team Providers Name Role Phone Francesco SAMANIEGO, Samara Eid Primary Care Physician [place] [facility] [place] 03/01/20 - 03/08/20 [facility] [address] [place] [phone]- [facility] Encounter Diagnosis COPD exacerbation (Discharge Diagnosis) - 03/01/20 COPD, moderate (Discharge Diagnosis) - 03/01/20 Morbid obesity with body mass index of 40.0-49.9 (Discharge Diagnosis) - 03/01/20 History of heroin abuse (Discharge Diagnosis) - 03/01/20 H/O cocaine abuse (Discharge Diagnosis) - 03/01/20 Attending Physician: Not on Staff, Attending MD [...] 16:21:00 EST, Powder, Route to Pharmacy Electronically, NCPDP_[id number], [facility], 162, cm, 02/23/20 14:38:00 EDT, Height, Dry [...] 07/04/19 14:11:00 EST, Route to Pharmacy Electronically, [id number], 162, cm, 04/28/19 10:54:00 EST, Height Start [...] BE TAKEN AT LEAST 24 HOURS APART, [facility] #[id number] Start Date: 01/27/19 Status: Orderedmeloxicam 15 mg oral tablet See Instructions, TAKE 1 TABLET BY MOUTH DAILY. Dispense in bubble form, # 30 tablet, 5 Refills, Soft Stop, 02/28/20 11:54:00 EDT, [place], [place] - [id number], Dispense in bubble form, 162, cm, 02/23/20 [...] capsule, 5 Refills, Maintenance, 01/18/20 12:09:00 EDT, [facility], 162, cm, 11/08/19 15:32:00 EDT, Height Start Date: 01/18/20 Stop Date: 07/16/20 Status: OrderedTrileptal 300 mg oral tablet 300 mg, 1, tablet, By Mouth, 2 times a day, # 90 tablet, Refills 0, Tot. Refills 0, Maintenance, 06/24/17 12:32:51, Route to Pharmacy Electronically, [id number], [facility] - [address] [place] [address] Start Date: 06/24/17 Stop Date: 08/08/17 Status: [...] [facility] Clinical Infor mant Status Service COPD, moderate Discharge 03/01/20 Diagnosis COPD exacerbation Discharge 03/01/20 Diagnosis Morbid obesity with Discharge 03/01/20 body mass index of Diagnosis 40.0-49.9 History of heroin Discharge 03/01/20 abuse Diagnosis H/O cocaine abuse Discharge 03/01/20 Diagnosis Vital Signs Most recent to oldest [Reference Range]: 1 Height 162 cm (03/01/20 8:47 AM) Weight 113.6 kg (03/01/20 8:47 AM) Body Mass Index [18.5-24.99] 43.29 *>HHI* (03/01/20 8:47 AM) Social History Social History Type Response Smoking Status Never smoker entered on: 10/28/17 Sex Female
--- OUTSIDE RECORDS SUMMARY | 2022-04-24 21:12 | XMS_ITS | Continuity of Care Document ---
:1960 Author Organization [facility] Address Unavailable , Care Team Providers Name Role Phone Francesco SAMANIEGO, Samara Eid Primary Care Physician Encounter [facility] Date(s): 08/16/21 - 09/15/21 [facility] Allergies, Adverse Reactions, Alerts [...] 09/01/21 Status: Ordereddexamethasone/neomycin/polymyxin B ophthalmic 1 mg-3.5 mg-47198 u/gm ointment 1 application, Eyes, Both, 3 [...] Instructions Replace Required Details, Route toPharmacy Electronically, [facility]... Start Date: 12/19/20 Status: OrderedhydrOXYzine pamoate [...] 09/11/21 16:39:00 EDT, Route to Pharmacy Electronically, [facility]/pharmacy #5, Partial f... Start Date: 09/11/21 Status: OrderedSpiriva Respimat 1.25 mcg/inh inhalation aerosol 2 puffs, Inhalation, Daily, Duplicate from 04/22/21 remaining refills sent, # 4 Gm, 2 Refills, 07/10/21 10:42:00 EST, [facility]-, 163, cm, 01/31/21 8:38:00 EDT, Height, 105.6, kg, 12/15/20 3:15:00 EDT, Dry Weight Start Date: 07/10/21 Status: OrderedWixela Inhub 250 mcg-50 mcg inhalation powder 1 puffs, Inhalation, 2 times a day, # 60 Unknown, 5 Refills, 07/10/21 10:42:00 EST, [facility]-, 30, 1 puffs Inhalation 2 times [...]
--- OUTSIDE RECORDS SUMMARY | 2022-04-24 21:12 | XMS_ITS | Continuity of Care Document ---
:1960 Author Organization [facility] Address [address] [place] [address]- Care Team Providers Name Role Phone Francesco SAMANIEGO, Samara Eid Primary Care Physician [place] [facility] [place]s): 01/16/21 - 01/23/21 [facility] [address] [place] [address]- Encounter Diagnosis Left foot pain (Discharge Diagnosis) - 01/16/21 Anxiety and depression (Discharge Diagnosis) - 01/16/21 Attending Physician: Not on Staff, Attending MD [...] Maintenance, 01/16/21 16:31:00 EDT, Gel, [facility]- [place], [place] - [id number], Partial fill upon... Start Date: 01/16/21 Stop Date: 01/30/21 Status: Orderedduloxetine 60 mg oral enteric coated capsule 1 capsule = 60 mg, By Mouth, Daily at bedtime, # 30 capsule, 0 Refills, Maintenance, 12/19/20 9:26:00 EDT, Capsule, [facility] [id number], Partial fill upon patient request if the prescription is for a schedule II opioid drug.... Start Date: 12/19/20 Status: Orderedgabapentin 300 mg oral capsule See Instructions, Take one capsul in the morning and two capsules at bedtime, # 90 capsule, Refills 0, Tot. Refills 0, Maintenance, 12/19/20 9:27:00 EDT, Instructions Replace Required Details, Route toPharmacy Electronically, [facility]... Start Date: 12/19/20 Status: OrderedhydrOXYzine [...] 12/19/20 9:27:00 EDT, Route to Pharmacy Electronically, [facility] [phone],Partial fill upon patient request if the prescrip... Start Date: 12/19/20 Status: OrderedSpiriva Respimat 1.25 mcg/inh inhalation aerosol INHALE 2 PUFFS BY MOUTH INTO THE lungs DAILY Start Date: 12/15/20 Status: OrderedTrileptal 300 mg oral tablet 600 mg, 2, tablet, By Mouth, 2 times a day, # 120 tablet, Refills 0, Tot. Refills 0, Maintenance, 12/19/20 9:27:00 EDT, Route to Pharmacy Electronically, [facility] [place], [place] - [id number],Partial fill upon patient request if the prescrip... [...] [facility] Clinical Infor mant Status Service Left foot pain Discharge 01/16/21 Diagnosis Anxiety and Discharge 01/16/21 depression Diagnosis Vital Signs Most recent to oldest [Reference Range]: 1 Height 163 cm (01/16/21 4:10 PM) Weight 110.1 kg (01/16/21 4:10 PM) Oxygen Saturation [94-100 %] 96 % (01/16/21 4:10 PM) Pulse Rate [55-90 bpm] 85 bpm (01/16/21 4:10 PM) Body Mass Index [18.5-24.99] 41.44 *>HHI* (01/16/21 4:10 PM) Blood Pressure [90-138/55-84 mm Hg] 110/82 mm Hg (01/16/21 4:10 PM) Mode of Delivery (Oxygen) Room air (01/16/21 4:10 PM) Blood pressure sites Arm, left (01/16/21 4:10 PM) Weight Obtained Via Standing scale (01/16/21 4:10 PM) Social History Social History Type Response Smoking Status Never smoker entered on: 10/28/17 Sex
--- OUTSIDE RECORDS SUMMARY | 2022-04-24 21:12 | XMS_ITS | Continuity of Care Document ---
:1960 Author Organization [facility] Adult Address [address] [place] [address]- Care Team Providers Name Role Phone Francesco SAMANIEGO, Samara Eid Primary Care Physician Encounter [facility] Date(s): 06/06/19 - 06/16/19 [facility] Adult [address] [place] [address]- [facility] Attending Physician: Gissel Vance Admitting Physician: AdmGissel [...] 10:04:00 EST, Powder, Route to Pharmacy Electronically, [id number], [facility]/pharmacy #[id number], 162, cm, 04/28/19 10:54:00 EST, [...] 06/03/19 9:46:00 EST, Route to Pharmacy Electronically, [facility]/pharmacy #[id number], 162, cm, 04/28/19 10:54:00 EST, [...] BE TAKEN AT LEAST 24 HOURS APART, [facility][id number] Start Date: 01/27/19 Status: Orderedmeloxicam 15 mg oral tablet See Instructions, TAKE 1 TABLET BY MOUTH DAILY. Dispense in bubble form, # 30 tablet, 5 Refills, Soft Stop, 06/07/19 13:00:00 EST, [facility]/pharmacy #[id number], Dispense in bubble form, 162, [...] Maintenance, 06/24/17 12:32:51, Route to Pharmacy Electronically, [id number], [facility] Start Date: 06/24/17 Stop Date: 08/08/17 [...]
--- OUTSIDE RECORDS SUMMARY | 2022-04-24 21:12 | XMS_ITS | Continuity of Care Document ---
:1960 Author Organization [facility] nter Address [address] [place] [address]- Care Team Providers Name Role Phone Francesco PRODUCTION WOOD CRAFTSMAN, Samara Eid Primary Care Physician [place] [facility] [place] - 08/23/[address] [phone]- Discharge Disposition: A-D/C Home Attending Physician: Yvette VIDAL, Aaron Machuca Admitting Physician: Susan Padilla MD Referring Physician: Not on Staff, Referring [...] inactivated 08/22/21 Not Given Patient Refuses Medications dexamethasone/neomycin/polymyxin B ophthalmic 1 mg-3.5 mg-34901 u/gm ointment 1 application, Eyes, Both, 3 [...] Instructions Replace Required Details, Route toPharmacy Electronically, [facility]... Start Date: 12/19/20 [...] # 4 Gm, 2 Refills, 07/10/21 10:42:00 [facility], [facility]-, 163, cm, 01/31/21 8:38:00 EDT, Height, 105.6, kg, 12/15/20 3:15:00 EDT, Dry Weight Start Date: 07/10/21 Status: OrderedWixela Inhub 250 mcg-50 mcg inhalation powder 1 puffs, Inhalation, 2 times a day, # 60 Unknown, 5 Refills, 07/[facility] 1 puffs Inhalation 2 [...] 40.0-49.9(Confirmed) Pulmonary nodules(Confirmed) Active Lung nodule(Confirmed) Active Obese class II(Confirmed) Active MEENA (obstructive sleep Active apnea)(Confirmed) Osteoarthritis, knee(Confirmed) Active Polysubstance abuse(Confirmed) Active PTSD (post-traumatic stress Active disorder)(Confirmed) Restless leg syndrome(Confirmed) Active Sleepwalking disorder(Confirmed) Active Results Orders for Microbiology Reports Name Date Blood Culture 08/22/21 Blood Culture #2 08/22/21 Microbiology Reports TEST:Blood Culture, Second Order STATUS:Unauthenticated BODY SITE: SOURCE:Blood COLLECTED DATE/TIME:08/22/21 2:42 PMBlood Culture, Second Order SPECIMEN DESCRIPTION : BLOOD RAC SPECIAL REQUESTS : NONE Test performed at [facility], [address] [place] [address], Sandrine Chin MD, Med Director, JOLENE [id number] CULTURE : NO GROWTH AFTER 24 HOURS REPORT STATUS : PRELIMINARY REPORT TEST:Blood Culture STATUS:Unauthenticated BODY SITE: SOURCE:Blood COLLECTED DATE/TIME:08/22/21 2:37 PMBlood Culture SPECIMEN DESCRIPTION : BLOOD RAC SPECIAL REQUESTS : NONE Test performed at [facility], [address] [place] [address], Sandrine Chin MD, Med Director, JOLENE [id number] CULTURE : NO GROWTH AFTER 24 HOURS REPORT STATUS : PRELIMINARY REPORT Vital Signs Most recent to oldest 1 2 3 [Reference Range]: Height 162.56 cm 162.56 cm 162.56 cm (08/23/21 5:02 PM) (08/23/21 1:52 PM) (08/23/21 4:3 1 AM) Weight 104.4 kg 104.9 kg 104.8 kg (08/23/21 4:39 AM) (08/22/21 5:11 AM) (08/21/21 10: 09 PM) Oxygen Saturation [94-100 94 % 93 % 94 % %] (08/23/21 5:02 PM) *L* (08/23/21 8:00 AM) (08/23/21 1:52 PM) Pulse Rate [55-90 bpm] 64 bpm 61 bpm 61 bpm (08/23/21 5:02 PM) (08/23/21 1:52 PM) (08/23/21 8:0 0 AM) Body Mass Index 39.66 39.66 38.79 [18.5-24.99] *>HHI* *>HHI* *>HHI* (08/21/21 10:09 PM) (08/21/21 7:26 PM) (08/21/21 6: 33 PM) Blood Pressure 123/78 mm Hg 125/73 mm Hg 111/71 mm Hg [90-138/55-84 mm Hg] (08/23/21 5:02 PM) (08/23/21 1:52 PM) ( 2 8:00 AM) Respiratory Rate [16-30 17 br/min 18 br/min 18 br/mi n br/min] (08/23/21 5:02 PM) (08/23/21 1:52 PM) (08/23/21 8:0 0 AM) Temperature [96.8-100.4 97.7 DegF 98.2 DegF 98.0 Deg F DegF] (08/23/21 5:02 PM) (08/23/21 1:52 PM) (08/23/21 8:0 0 AM) Mode of Delivery (Oxygen) Room air Room air Room a ir (08/23/21 5:02 PM) (08/23/21 1:52 PM) (08/23/21 8:0 0 AM) Blood pressure sites Arm, right Arm, right Arm, right (08/23/21 5:02 PM) (08/23/21 1:52 PM) (08/23/21 8:0 0 AM) Temperature Route Oral Oral Oral (08/23/21 5:02 PM) (08/23/21 1:52 PM) (08/23/21 8:0 0 AM) Dry Weight 102.5 kg 102.5 kg 102.5 kg (08/21/21 10:09 PM) (08/21/21 6:33 PM) (08/21/21 2: 45 PM) Weight Obtained Via Bed scale Bed scale Bed scale (08/23/21 4:39 AM) (08/22/21 5:11 AM) (08/21/21 7:2 6 PM) Dry Weight Obtained Via Patient/family stated (08/21/21 2:42 PM) Social History Social History Type Response Smoking Status Never smoker entered on: 10/28/17 Sex
--- OUTSIDE RECORDS SUMMARY | 2022-04-24 21:12 | XMS_ITS | Continuity of Care Document ---
:1960 Author Organization [facility] Adult Address [address] [place] [address]- Care Team Providers Name Role Phone Francesco SAMANIEGO, Samara Eid Primary Care Physician En[place] [facility] Date(s): 07/25/21 - 08/01/21 [facility] Adult [address] [place] [address]- Encounter Diagnosis Eye pressure (Discharge Diagnosis) - 07/25/21 Attending Physician: Not on Staff, Attending MD [...] 0 Refills, Maintenance, 01/16/21 16:31:00 EDT, Gel, [facility] [place], [place] - [id number], Partial fill upon... Start Date: 01/16/21 Stop Date: 01/30/21 Status: Orderedduloxetine 60 mg oral enteric coated capsule 1 capsule = 60 mg, By Mouth, Daily at bedtime, # 30 capsule, 0 Refills, Maintenance, 12/19/20 9:26:00 EDT, Capsule, [facility] [id number], Partial fill upon patient request if the prescription is for a schedule II opioid drug.... Start Date: 12/19/20 Status: Orderedgabapentin 300 mg oral capsule See Instructions, Take one capsul in the morning and two capsules at bedtime, # 90 capsule, Refills 0, Tot. Refills 0, Maintenance, 12/19/20 9:27:00 EDT, Instructions Replace Required Details, Route toPharmacy Electronically, [facility]... Start Date: 12/19/20 Status: OrderedhydrOXYzine pamoate 25 [...] 12/19/20 9:27:00 EDT, Route to Pharmacy Electronically, [facility] [id number],Partial fill upon patient request if the prescrip... Start Date: 12/19/20 Status: OrderedSpiriva Respimat 1.25 mcg/inh inhalation aerosol 2 puffs, Inhalation, Daily, Duplicate from 04/22/21 remaining refills sent, # 4 Gm, 2 Refills, 07/10/21 10:42:00 EST, [facility]-720[facility], 163, cm, 01/31/21 8:38:00 EDT, Height, 105.6, kg, 12/15/20 3:15:00 EDT, Dry Weight Start Date: 07/10/21 Status: OrderedTrileptal 300 mg oral tablet 600 mg, 2, tablet, By Mouth, 2 times a day, # 120 tablet, Refills 0, Tot. Refills 0, Maintenance, 12/19/20 9:27:00 EDT, Route to Pharmacy Electronically, [facility] [place], [place] - [id number],Partial fill upon patient request if the prescrip... Start Date: 12/19/20 Status: OrderedWixela Inhub 250 mcg-50 mcg inhalation powder 1 puffs, Inhalation, 2 times a day, # 60 Unknown, 5 Refills, 07/10/21 10:42:00 EST, [facility]-, 30, 1 puffs Inhalation 2 times [...] Active Diagnosis Diagnosis Type Effective Dates Health Status Clinical In formant Service Eye pressure Discharge 07/25/21 Diagnosis Vital Signs Most recent to oldest [Reference Range]: 1 Height 165 cm (07/25/21 2:44 PM) Weight 113.1 kg (07/25/21 2:44 PM) Body Mass Index [18.5-24.99] 41.54 *>HHI* (07/25/21 2:44 PM) Weight Obtained Via Patient/family stated (07/25/21 2:44 PM) Social History Social History Type Response Smoking Status Never smoker entered on: 10/28/17 Sex
--- OUTSIDE RECORDS SUMMARY | 2022-04-24 21:12 | XMS_ITS | Continuity of Care Document ---
:1960 Author Organization [facility] Adult Address [address] [place] [address]- Care Team Providers Name Role Phone Francesco SAMANIEGO, Samara Eid Primary Care Physician Encounter [facility] Date(s): 03/15/20 - 04/14/20 [facility] Adult [address] [place] [address]- Allergies, Adverse Reactions, Alerts Substance Reaction Severity [...] 16:21:00 EST, Powder, Route to Pharmacy Electronically, NCPDP_[id number], [facility], 162, cm, 02/23/20 14:38:00 EDT, [...] 07/04/19 14:11:00 EST, Route to Pharmacy Electronically, [id number], 162, cm, 04/28/19 10:54:00 EST, Height Start [...] BE TAKEN AT LEAST 24 HOURS APART, [facility] #[id number] Start Date: 01/27/19 Status: Orderedmeloxicam 15 mg oral tablet See Instructions, TAKE 1 TABLET BY MOUTH DAILY. Dispense in bubble form, # 30 tablet, 5 Refills, Soft Stop, 02/28/20 11:54:00 EDT, [place], [place] - [id number], Dispense in bubble form, 162, cm, 02/23/20 [...] 03/19/20 12:37:00 EDT, Aerosol, [facility] [place], [place] - [id number], 162, cm, 03/01/20 8:47:00 EDT, Height Start Date: 03/19/20 Status: OrderedTrileptal 300 mg oral tablet 300 mg, 1, tablet, By Mouth, 2 times a day, # 90 tablet, Refills 0, Tot. Refills 0, Maintenance, 06/24/17 12:32:51, Route to Pharmacy Electronically, [id number], [facility] [address] [facility] Start Date: 06/24/17 Stop Date: 08/08/17 [...]
--- OUTSIDE RECORDS SUMMARY | 2022-04-24 21:12 | XMS_ITS | Continuity of Care Document ---
:1960 Author Organization [facility] Adult Address [address] [place] [phone]- Care Team Providers Name Role Phone Francesco SAMANIEGO, Samara Eid Primary Care Physician Encounter [facility] Date(s): 07/19/21 - 08/18/21 [facility] Adult [address] [place] [address]- Allergies, Adverse Reactions, Alerts No Known Allergies [...] 0 Refills, Maintenance, 01/16/21 16:31:00 EDT, Gel, [facility]- [place], [place] - [id number], Partial fill upon... Start Date: 01/16/21 Stop Date: 01/30/21 Status: Orderedduloxetine 60 mg oral enteric coated capsule 1 capsule = 60 mg, By Mouth, Daily at bedtime, # 30 capsule, 0 Refills, Maintenance, 12/19/20 9:26:00 EDT, Capsule, [place], [place] - [id number], Partial fill upon patient request if the [...] 12/19/20 9:27:00 EDT, Route to Pharmacy Electronically, [place], [place] - [id number],Partial fill upon patient request if the prescrip... Start Date: 12/19/20 Status: OrderedSpiriva Respimat 1.25 mcg/inh inhalation aerosol 2 puffs, Inhalation, Daily, Duplicate from 04/22/21 remaining refills sent, # 4 Gm, 2 Refills, 07/10/21 10:42:00 EST, [facility]-69358, 163, cm, 01/31/21 8:38:00 EDT, Height, 105.6, kg, 12/15/20 3:15:00 EDT, Dry Weight Start Date: 07/10/21 Status: OrderedTrileptal 300 mg oral tablet 600 mg, 2, tablet, By Mouth, 2 times a day, # 120 tablet, Refills 0, Tot. Refills 0, Maintenance, 12/19/20 9:27:00 EDT, Route to Pharmacy Electronically, [place], [place] - [id number],Partial fill upon patient request if the prescrip... Start Date: 12/19/20 Status: OrderedWixela Inhub 250 mcg-50 mcg inhalation powder 1 puffs, Inhalation, 2 times a day, # 60 Unknown, 5 Refills, 07/10/21 10:42:00 EST, [facility] [place]-[address], 30, 1 puffs Inhalation 2 times a [...]
--- OUTSIDE RECORDS SUMMARY | 2022-04-24 21:12 | XMS_ITS | Continuity of Care Document ---
:1960 Author Organization [facility] nter Address [address] [place] [address]- Care Team Providers Name Role Phone Francesco SAMANIEGO, Samara Eid Primary Care Physician [place] [facility] [place] 07/19/21 - 07/19/[address] [address]- Discharge Disposition: A-D/C Home Attending Physician: Govind Monsalve MD Admitting Physician: Govind Monsalve MD Referring Physician: Not on Staff, Referring [...] 0 Refills, Maintenance, 01/16/21 16:31:00 EDT, Gel, [facility] [place], [place] - [id number], Partial fill upon... Start Date: 01/16/21 Stop Date: 01/30/21 Status: Orderedduloxetine 60 mg oral enteric coated capsule 1 capsule = 60 mg, By Mouth, Daily at bedtime, # 30 capsule, 0 Refills, Maintenance, 12/19/20 9:26:00 EDT, Capsule, [facility] [id number], Partial fill upon patient request if the prescription is for a schedule II opioid drug.... Start Date: 12/19/20 Status: Orderedgabapentin 300 mg oral capsule See Instructions, Take one capsul in the morning and two capsules at bedtime, # 90 capsule, Refills 0, Tot. Refills 0, Maintenance, 12/19/20 9:27:00 EDT, Instructions Replace Required Details, Route toPharmacy Electronically, [facility]... Start Date: 12/19/20 Status: OrderedhydrOXYzine [...] 9:27:00 EDT, Route to Pharmacy Electronically, [facility] [id number],Partial fill upon patient request if the prescrip... Start Date: 12/19/20 Status: OrderedSpiriva Respimat 1.25 mcg/inh inhalation aerosol 2 puffs, Inhalation, Daily, Duplicate from 04/22/21 remaining refills sent, # 4 Gm, 2 Refills, 07/10/21 10:42:00 EST, [facility]-54324, 163, cm, 01/31/21 8:38:00 EDT, Height, 105.6, kg, 12/15/20 3:15:00 EDT, Dry Weight Start Date: 07/10/21 Status: OrderedTrileptal 300 mg oral tablet 600 mg, 2, tablet, By Mouth, 2 times a day, # 120 tablet, Refills 0, Tot. Refills 0, Maintenance, 12/19/20 9:27:00 EDT, Route to Pharmacy Electronically, [facility] [place], [place] - [id number],Partial fill upon patient request if the prescrip... Start Date: 12/19/20 Status: OrderedWixela Inhub 250 mcg-50 mcg inhalation powder 1 puffs, Inhalation, 2 times a day, # 60 Unknown, 5 Refills, 07/10/21 10:42:00 EST, [facility]-95034, 30, 1 puffs Inhalation 2 times a [...] oldest 1 2 3 [Reference Range]: Height 165 cm 165 cm 165 cm (07/19/21 10:08 PM) (07/19/21 6:34 PM) (07/19/21 6: 29 PM) Weight 110 kg 110 kg 110 kg (07/19/21 10:08 PM) (07/19/21 6:34 PM) (07/19/21 6: 29 PM) Oxygen Saturation [94-100 %] 94 % 98 % (07/19/21 10:08 PM) (07/19/21 6:29 PM) Pulse Rate [55-90 bpm] 66 bpm 73 bpm (07/19/21 10:08 PM) (07/19/21 6:29 PM) Body Mass Index [18.5-24.99] 40.4 40.4 *>HHI* *>HHI* (07/19/21 10:08 PM) (07/19/21 6:29 PM) Blood Pressure [90-138/55-84 115/80 mm Hg 111/97 mm Hg mm Hg] (07/19/21 10:08 PM) (07/19/21 6:29 PM) Respiratory Rate [16-30 16 br/min 15 br/min br/min] (07/19/21 10:08 PM) *L* (07/19/21 6:29 PM) Temperature [96.8-100.4 DegF] 98.5 DegF (07/19/21 6:29 PM) Temperature Route Temporal (07/19/21 6:29 PM) Dry Weight 110 kg 110 kg 110 kg (07/19/21 10:08 PM) (07/19/21 6:34 PM) (07/19/21 6: 29 PM) Social History Social History Type Response Smoking Status Never smoker entered on: 10/28/17 Sex
--- OUTSIDE RECORDS SUMMARY | 2022-04-24 21:12 | XMS_ITS | Continuity of Care Document ---
:1960 Author Organization [facility] Adult Address [address] [place] [address]- Care Team Providers Name Role Phone Francesco SAMANIEGO, Samara Eid Primary Care Physician Encounter [facility] [place] Date(s): 03/01/20 - 03/31/20 [facility] Adult [address] [place] [address]- [facility] Attending Physician: Gissel Vance Admitting Physician: Gissel [...] 16:21:00 EST, Powder, Route to Pharmacy Electronically, NCP[facility]_[id number], , 162, cm, 02/23/20 14:38:00 EDT, Height, Dry [...] 07/04/19 14:11:00 EST, Route to Pharmacy Electronically, [facility], 162, cm, 04/28/19 10:54:00 EST, Height Start [...] BE TAKEN AT LEAST 24 HOURS APART, [facility] #[id number] Start Date: 01/27/19 Status: Orderedmeloxicam 15 mg oral tablet See Instructions, TAKE 1 TABLET BY MOUTH DAILY. Dispense in bubble form, # 30 tablet, 5 Refills, Soft Stop, 02/28/20 11:54:00 EDT, [place], [place] - [id number], Dispense in bubble form, 162, cm, 02/23/20 [...] 6 Refills, Maintenance, 03/19/20 12:37:00 EDT, Aerosol, [facility] - [place], [place] - [id number], 162, cm, 03/01/20 8:47:00 EDT, Height Start Date: 03/19/20 Status: OrderedTrileptal 300 mg oral tablet 300 mg, 1, tablet, By Mouth, 2 times a day, # 90 tablet, Refills 0, Tot. Refills 0, Maintenance, 06/24/17 12:32:51, Route to Pharmacy Electronically, [id number], [facility] Start Date: 06/24/17 Stop Date: 08/08/17 [...]
--- OUTSIDE RECORDS SUMMARY | 2022-04-24 21:12 | XMS_ITS | Continuity of Care Document ---
:1960 Author Organization [facility] Adult Address [address] [place] [address]- Care Team Providers Name Role Phone Francesco SAMANIEGO, Samara Eid Primary Care Physician En[place] [facility] [place] Date(s): 05/24/19 - 07/06/19 [facility] Adult [address] [place] [address]- [facility] Attending Physician: Samara Maya NP Referring Physician: [...] 10:04:00 EST, Powder, Route to Pharmacy Electronically, [id number], [facility]/pharmacy #[id number], 162, cm, 04/28/19 10:54:00 EST, [...] 07/04/19 14:11:00 EST, Route to Pharmacy Electronically, [facility], 162, cm, 04/28/19 10:54:00 EST, Height Start [...] BE TAKEN AT LEAST 24 HOURS APART, [facility] #[id number] Start Date: 01/27/19 Status: Orderedmeloxicam 15 mg oral tablet See Instructions, TAKE 1 TABLET BY MOUTH DAILY. Dispense in bubble form, # 30 tablet, 5 Refills, Soft Stop, 06/07/19 13:00:00 EST, [facility]/pharmacy #1026, Dispense in bubble form, 162, [...] Maintenance, 06/24/17 12:32:51, Route to Pharmacy Electronically, [id number], [facility] Start Date: 06/24/17 Stop Date: [...]
--- OUTSIDE RECORDS SUMMARY | 2022-04-24 21:12 | XMS_ITS | Continuity of Care Document ---
:1960 Author Organization [facility] Adult Address [address] [place] [address]- Care Team Providers Name Role Phone Francesco AUDIO VIDEO TECH, Samara Eid Primary Care Physician [place] [facility] [place](s): 01/18/20 - 02/17/20 [facility] Adult [address] [place] [address]- [facility] Allergies, Adverse Reactions, Alerts Substance Reaction [...] each, Refills 3, Tot. Refills 3, Maintenance, 02/16/20 16:21:00 EDT, Powder, Route to Pharmacy Electronically, NCPDP_[id number], [facility], 162, cm, 11/08/19 15:32:00 EDT, Height, Dry Weight Start Date: 02/16/20 Stop Date: 06/15/20 Status: OrderedAutoCPAP 8-20 cm H2O with heated [...] 07/04/19 14:11:00 EST, Route to Pharmacy Electronically, [facility], 162, cm, 04/28/19 10:54:00 EST, Height Start [...] BE TAKEN AT LEAST 24 HOURS APART, [facility] #[id number] Start Date: 01/27/19 Status: OrderedMedrol 4 mg oral tablet 1 pack/packet, By Mouth, Once, as directed on package labeling, # 21 tablet, 0 Refills, Soft Stop, 11/08/19 16:28:00 EDT, Tablet, [facility], 162, cm, 11/08/19 15:32:00 EDT, Height Start Date: 11/08/19 Status: Orderedmeloxicam 15 mg oral tablet See Instructions, TAKE 1 TABLET BY MOUTH DAILY. Dispense in bubble form, # 30 tablet, 5 Refills, Soft Stop, 06/07/19 13:00:00 EST, [facility]/pharmacy #1026, Dispense in bubble form, 162, cm, [...] capsule, 5 Refills, Maintenance, 01/18/20 12:09:00 EDT, [facility], 162, cm, 11/08/19 15:32:00 EDT, Height Start Date: 01/18/20 Stop Date: 07/16/20 Status: OrderedTrileptal 300 mg oral tablet 300 mg, 1, tablet, By Mouth, 2 times a day, # 90 tablet, Refills 0, Tot. Refills 0, Maintenance, 06/24/17 12:32:51, Route to Pharmacy Electronically, [id number], [facility] - [address] [place] [address] Start Date: 06/24/17 Stop Date: 08/08/17 Status: [...]
--- OUTSIDE RECORDS SUMMARY | 2022-04-24 21:13 | XMS_ITS | Continuity of Care Document ---
:1960 Author Organization [facility] Adult Address [address] [place] [address]- Care Team Providers Name Role Phone Francesco SAMANIEGO, Samara Eid Primary Care Physician Encounter [facility] Date(s): 12/31/20 - 01/30/21 [facility] Adult [address] [place] [address]- Allergies, Adverse Reactions, Alerts Substance Reaction Severity [...] 16:31:00 EDT, Gel, [facility]- [place], [place] - [id number], Partial fill upon... Start Date: 01/16/21 Stop Date: 01/30/21 Status: Orderedduloxetine 60 mg oral enteric coated capsule 1 capsule = 60 mg, By Mouth, Daily at bedtime, # 30 capsule, 0 Refills, Maintenance, 12/19/20 9:26:00 EDT, Capsule, [facility] [id number], Partial fill upon patient request if the prescription is for a schedule II opioid drug.... Start Date: 12/19/20 Status: Orderedgabapentin 300 mg oral capsule See Instructions, Take one capsul in the morning and two capsules at bedtime, # 90 capsule, Refills 0, Tot. Refills 0, Maintenance, 12/19/20 9:27:00 EDT, Instructions Replace Required Details, Route toPharmacy Electronically, [facility]... Start Date: 12/19/20 Status: OrderedhydrOXYzine [...] 12/19/20 9:27:00 EDT, Route to Pharmacy Electronically, [facility] [id number],Partial fill upon patient request if the prescrip... Start Date: 12/19/20 Status: OrderedSpiriva Respimat 1.25 mcg/inh inhalation aerosol INHALE 2 PUFFS BY MOUTH INTO THE lungs DAILY Start Date: 12/15/20 Status: OrderedTrileptal 300 mg oral tablet 600 mg, 2, tablet, By Mouth, 2 times a day, # 120 tablet, Refills 0, Tot. Refills 0, Maintenance, 12/19/20 9:27:00 EDT, Route to Pharmacy Electronically, [facility] - [place], [place] - [id number],Partial fill upon patient request if the prescrip... [...]
--- OUTSIDE RECORDS SUMMARY | 2022-04-24 21:13 | XMS_ITS | Continuity of Care Document ---
:1960 Author Organization [facility] Address Unavailable , Care Team Providers Name Role Phone Francesco SAMANIEGO, Samara Eid Primary Care Physician Encounter [facility] Date(s): 08/05/21 - 09/04/21 [facility] Allergies, Adverse Reactions, Alerts No Known [...] 09/01/21 Status: Ordereddexamethasone/neomycin/polymyxin B ophthalmic 1 mg-3.5 mg-41538 u/gm ointment 1 application, Eyes, Both, 3 [...] Instructions Replace Required Details, Route toPharmacy Electronically, [facility] [place]... Start Date: 12/19/20 [...] 4 Gm, 2 Refills, 07/10/21 10:42:00 EST, [facility]-, 163, cm, 01/31/21 8:38:00 EDT, Height, 105.6, kg, 12/15/20 3:15:00 EDT, Dry Weight Start Date: 07/10/21 Status: OrderedWixela Inhub 250 mcg-50 mcg inhalation powder 1 puffs, Inhalation, 2 times a day, # 60 Unknown, 5 Refills, [facility], 1 puffs Inhalation 2 times a [...]
--- OUTSIDE RECORDS SUMMARY | 2022-04-24 21:13 | XMS_ITS | Continuity of Care Document ---
:1960 Author Organization [facility] Adult Address [address] [place] [id number]- Care Team Providers Name Role Phone Francesco SAMANIEGO, Samara Eid Primary Care Physician Encounter [facility] Date(s): 07/29/21 - 08/28/21 [facility] Adult [address] [place] [id number] Allergies, Adverse Reactions, Alerts No Known Allergies [...] Refuses Medications dexamethasone/neomycin/polymyxin B ophthalmic 1 mg-3.5 mg-20362 u/gm ointment 1 application, Eyes, Both, 3 [...] Instructions Replace Required Details, Route toPharmacy Electronically, [facility]... Start Date: 12/19/20 Status: OrderedhydrOXYzine [...] Gm, 2 Refills, 07/10/21 10:42:00 EST, [facility]-, 163, cm, 01/31/21 8:38:00 EDT, Height, 105.6, kg, 12/15/20 3:15:00 EDT, Dry Weight Start Date: 07/10/21 Status: OrderedWixela Inhub 250 mcg-50 mcg inhalation powder 1 puffs, Inhalation, 2 times a day, # 60 Unknown, 5 [facility], [facility] 1 puffs Inhalation 2 times a [...]
--- OUTSIDE RECORDS SUMMARY | 2022-04-24 21:13 | XMS_ITS | Continuity of Care Document ---
:1960 Author Organization [facility] Address [address] [place] [id number]- Care Team Providers Name Role Phone Francesco SAMANIEGO, Samara Eid Primary Care Physician Encounter [facility] Date(s): 09/16/21 - 10/16/21 [facility] [address] [place] [id number] Allergies, Adverse Reactions, Alerts No Known Allergies [...] 09/01/21 Status: Ordereddexamethasone/neomycin/polymyxin B ophthalmic 1 mg-3.5 mg-30997 u/gm ointment 1 application, Eyes, Both, 3 [...] Replace Required Details, Route toPharmacy Electronically, [facility]... Start Date: 12/19/20 Status: [...] 09/11/21 16:39:00 EDT, Route to Pharmacy Electronically, [facility]/pharmacy #5, Partial f... Start Date: 09/11/21 Status: OrderedSpiriva Respimat 1.25 mcg/inh inhalation aerosol 2 puffs, Inhalation, Daily, Duplicate from 04/22/21 remaining refills sent, # 4 Gm, 2 Refills, 07/10/21 10:42:00 EST, [facility]-, 163, cm, 01/31/21 8:38:00 EDT, Height, 105.6, kg, 12/15/20 3:15:00 EDT, Dry Weight Start Date: 07/10/21 Status: OrderedWixela Inhub 250 mcg-50 mcg inhalation powder 1 puffs, Inhalation, 2 times a day, # 60 Unknown, 5 Refills, 07/10/21 10:42:00 [facility], [facility]-, 30, 1 puffs Inhalation 2 times [...]
--- OUTSIDE RECORDS SUMMARY | 2022-04-24 21:13 | XMS_ITS | Continuity of Care Document ---
:1960 Author Organization [facility] Adult Address [address] [place] [address]- Care Team Providers Name Role Phone Samara Maya NP Primary Care Physician Encounter [facility] Date(s): 09/04/21 - 10/11/21 [facility] [address] [place] [phone]- Attending Physician: Not on Staff, Attending MD [...] 09/01/21 Status: Ordereddexamethasone/neomycin/polymyxin B ophthalmic 1 mg-3.5 mg-38668 u/gm ointment 1 application, Eyes, Both, 3 [...] Instructions Replace Required Details, Route toPharmacy Electronically, [facility]... Start Date: 12/19/20 Status: [...] 09/11/21 16:39:00 EDT, Route to Pharmacy Electronically, [facility]/pharmacy #8, Partial f... Start Date: 09/11/21 Status: OrderedSpiriva Respimat 1.25 mcg/inh inhalation aerosol 2 puffs, Inhalation, Daily, Duplicate from 04/22/21 remaining refills sent, # 4 Gm, 2 Refills, 07/10/21 10:42:00 EST, [facility]-, 163, cm, 01/31/21 8:38:00 EDT, Height, 105.6, kg, 12/15/20 3:15:00 EDT, Dry Weight Start Date: 07/10/21 Status: OrderedWixela Inhub 250 mcg-50 mcg inhalation powder 1 puffs, Inhalation, 2 times a day, # 60 Unknown, 5 Refills, 07/10/21 10:42:00 [facility], [facility]-, 30, 1 puffs Inhalation 2 [...]
--- OUTSIDE RECORDS SUMMARY | 2022-04-24 21:13 | XMS_ITS | Continuity of Care Document ---
:1960 Author Organization [facility] Adult Address [address] [place] [address]- Care Team Providers Name Role Phone Samara Maya NP Primary Care Physician Encounter [facility] Date(s): 09/13/19 - 09/20/19 [facility] Adult [address] [place] [id number] [place] Encounter Diagnosis Viral URI (Discharge Diagnosis) - 09/13/19 Attending Physician: Samara Maya NP Allergies, Adverse [...] 10:52:00 EDT, Powder, Route to Pharmacy Electronically, [id number], [facility]-, 162, cm, 04/28/19 10:54:00 EST, Height, Dry... [...] 07/04/19 14:11:00 EST, Route to Pharmacy Electronically, [id number], 162, cm, 04/28/19 10:54:00 EST, Height Start [...] BE TAKEN AT LEAST 24 HOURS APART, [id number] Start Date: 01/27/19 Status: Orderedmeloxicam 15 mg [...] capsule, 3 Refills, Maintenance, 07/11/19 8:45:00 EST, [facility]-[id number], 162, cm, 04/28/19 10:54:00 EST, Height Start Date: 07/11/19 Stop Date: 11/08/19 Status: OrderedTrileptal 300 mg oral tablet 300 mg, 1, tablet, By Mouth, 2 times a day, # 90 tablet, Refills 0, Tot. Refills 0, Maintenance, 06/24/17 12:32:51, Route to Pharmacy Electronically, [id number], [id number] Start Date: 06/24/17 Stop Date: 08/08/17 [...] Diagnosis Type Effective Dates Health Status Clinical Serv ice Informant Viral URI Discharge 09/13/19 Diagnosis Social History Social History Type Response Smoking Status Never smoker entered on: 10/28/17 Sex Female
--- OUTSIDE RECORDS SUMMARY | 2022-04-24 21:13 | XMS_ITS | Continuity of Care Document ---
:1960 Author Organization [facility] Address Unavailable , Care Team Providers Name Role Phone Francesco SAMANIEGO, Samara Eid Primary Care Physician [place] [facility] [place](s): 08/05/21 - 09/04/21 [facility] Allergies, Adverse Reactions, Alerts No [...] 09/01/21 Status: Ordereddexamethasone/neomycin/polymyxin B ophthalmic 1 mg-3.5 mg-58803 u/gm ointment 1 application, Eyes, Both, 3 [...] 4 Gm, 2 Refills, 07/10/21 10:42:00 EST, [facility]-, 163, cm, 01/31/21 8:38:00 EDT, Height, 105.6, kg, 12/15/20 3:15:00 EDT, Dry Weight Start Date: 07/10/21 Status: OrderedWixela Inhub 250 mcg-50 mcg inhalation powder 1 puffs, Inhalation, 2 times a day, # 60 Unknown, 5 Refills, [facility] 1 puffs Inhalation 2 times [...]
--- NOTE | 2022-04-24 21:22 | MHC.RECOVSUP ---
? Reason for consult:OPI o? Current location:ED05? o? Identified substance use concern:? -? Overdose -? Support ? Intervention: o? Community resources provided o? Harm reduction discussion ? Plan: o? Follow up tomorrow? o? Patient to follow up with [facility] after discharge ? Additional information:RC met with pt, discussed harm reduction, and provided pt with recovery resources. Pt says she's familiar with the recovery process, and is a member at [facility]. Please follow up tomorrow for ATS.
[2022-04-24 23:10] LABS: MANUAL DIFF FLAG NO
[2022-04-24 23:11] LABS: Basophils Absolute Auto 0.1 X10*3/uL (0.0-0.2); Basophils Percent Auto 0.4 % (0-2); Eosinophils Absolute Auto 1.2 X10*3/uL (0.0-0.4); Eosinophils Percent Auto 8.6 % (0-4); Hematocrit 40.2 % (37.0-47.0); Hemoglobin 13.6 g/dl (12.0-16.0); Imm Gran Abs Auto 0.06 X10*3/uL (0.00-0.03); Imm Gran Pct Auto 0.4 % (0.0-0.4); Lymphocytes Absolute Auto 1.7 X10*3/uL (1.2-4.9); Lymphocytes Percent Auto 11.8 % (20-40); Mean Corpuscular HGB Conc 33.8 g/dl (31.0-35.0); Mean Corpuscular Hemoglobin 29.6 pg (27.0-33.0); Mean Corpuscular Volume 87.4 fL (80.0-98.0); Mean Platelet Volume 8.6 fL (9.4-12.3); Monocytes Absolute Auto 0.8 X10*3/uL (0.1-1.2); Neutrophils Absolute Auto 10.2 x10*3/uL (2.0-8.3); Neutrophils Percent Auto 72.8 % (45-73); Platelet Count 261 X10*3/uL (160-400); Red Cell Distribution Width 13.2 % (11.0-16.0)
[2022-04-24 23:21] VITALS: BP 139/76; PULSE 67; RESP 22; TEMP 36.9; O2SAT 97
[2022-04-24 23:21] LABS: COVID-19 Test Negative (Negative); IDNOW Serial# 16C4AD1C
[2022-04-24 23:25] LABS: Ethanol < 10 mg/dL
[2022-04-24 23:31] LABS: Alanine Aminotransferase 47 U/L (0-31); Alkaline Phosphatase 54 U/L (39-117); Anion Gap 15 (12-20); Aspartate Amino Transferase 47 U/L (5-31); Bilirubin Total 0.4 mg/dL (0.0-1.0); Blood Urea Nitrogen 13 mg/dL (9-16); Calcium 9.7 mg/dL (8.4-10.2); Carbon Dioxide 29 mmol/L (22-29); Chloride 103 mmol/L (96-108); Creatinine Clr Calc Pharmacy 65.4; Estimated Glomerular Filt Rate 49; Glucose Random 90 mg/dL (60-115); Magnesium 1.6 mg/dL (1.6-2.6); Potassium 3.9 mmol/L (3.3-5.1); Sodium 143 mmol/L (135-145); Total Protein 7.8 g/dL (6.5-8.0); Troponin-I High Sensitivity 12.2 ng/L (<3.5-17.0)
[2022-04-25] MEDS: iohexoL 350 MG/ML 100 ML INFUS..BTL IV (00:48)
[2022-04-25 01:32] LABS: Albumin Level 3.9 g/dL (3.5-5.0)
[2022-04-25 01:33] LABS: Troponin-I High Sensitivity 11.2 ng/L (<3.5-17.0)
[2022-04-25] MEDS: Lidocaine 4 % Patch ADH..PATCH 1 PATCH TRANSDERMA (01:33)
[2022-04-25] MEDS: Morphine Sulfate 4 MG/ML CARTRIDGE IVPUSH (01:33)
[2022-04-25 01:57] VITALS: BP 159/78; PULSE 67; RESP 14; TEMP 36.2; O2SAT 99
--- NOTE | 2022-04-25 02:55 | PC.NURSE ---
took over from mi urbano pt is currently asleep, respirations even and unlabored, in no apparent distress at this time
[2022-04-25 03:43] VITALS: BP 135/79; PULSE 65; RESP 18; O2SAT 98
--- NOTE | 2022-04-25 03:44 | PC.NURSE ---
pt is currently awake, alert and oriented, skin pwd, respirations even and unlabored, pt reports midsternal chest pain, pt reports relapsing on drinking, pt denies si/hi was an accidental overdose would like to go to detox
[2022-04-25 04:28] VITALS: BP 131/73; PULSE 61; RESP 15; TEMP 36.9; O2SAT 98
--- NOTE | 2022-04-25 06:00 | PC.NURSE ---
pt requesting to go home and will fallow up on detox from home
== END 2022-04-25 06:35 | disposition home or self-care (01) ==
PROVIDERS: Physician Assistant; Emergency Provider Emergency Medicine; PCP Nurse Practitioner Family
DX: S22.5XXA Flail chest, initial encounter for closed fracture (principal); S22.20XA Unspecified fracture of sternum, initial encounter for closed fracture; M54.2 Cervicalgia; R51.9 Headache, unspecified; R07.89 Other chest pain; T40.1X1A Poisoning by heroin, accidental (unintentional), initial encounter; X58.XXXA Exposure to other specified factors, initial encounter; Y93.9 Activity, unspecified; Y92.9 Unspecified place or not applicable; Y99.9 Unspecified external cause status; Z20.822 Contact with and (suspected) exposure to COVID-19; Z71.51 Drug abuse counseling and surveillance of drug abuser; Z79.899 Other long term (current) drug therapy
CPT/HCPCS: 36415; 70450; 71045; 71260; 72125; 74177; 80053; 82077; 82947; 83735; 84484; 85025; 87635; 93005; 96374; 99285; J2270; Q9967